=== PATIENT | male | born 1995 | race Caucasian/White ===

== ENCOUNTER → 2018-03-07 07:56 | Outpatient (CLI) | payer OTHER, SELFPAY ==
[2018-03-07 08:51] LABS: Add Manual Diff / Slide Review NO; Basophils Percent Auto 1.2 % (0-2); Eosinophils Percent Auto 1.9 % (2-4); Hematocrit 47.4 % (41-53); Hemoglobin 17.3 g/dL (13.5-17.5); Lymphocytes Percent Auto 15.9 % (25-40); Mean Corpuscular HGB Conc 36.5 % (30-36); Mean Corpuscular Hemoglobin 36.5 PG (26-34); Mean Corpuscular Volume 99.9 fL (80-100); Monocytes Percent Auto 11.8 % (3-14); Neutrophils Absolute Auto 3500 /uL (3000-5900); Neutrophils Percent Auto 69.2 % (50-75); Platelet Count 127 X10^3/uL (150-400); Red Blood Cell Count 4.75 X10^6/uL (4.5-5.9); Red Cell Distribution Width 12.5 % (11.6-14.8)
[2018-03-07 09:03] LABS: Alanine Aminotransferase 289 IU/L (21-72); Albumin Globulin Ratio 1.5 (1.0-2.8); Alkaline Phosphatase 98 U/L (38-126); Aspartate Aminotransferase 570 IU/L (17-59); Bilirubin Total 2.3 mg/dL (0.2-1.3); Blood Urea Nitrogen 8 mg/dL (9-20); Calcium 9.8 mg/dL (8.4-10.2); Carbon Dioxide 30 mmol/L (22-32); Chloride 97 mmol/L (98-107); Estimated Glomerular Filt Rate > 60.0 mL/min (>60); Globulin 3.3 g/dL (1.7-4.1); Glucose 105 mg/dL (70-100); HEMOLYSIS 21 (0-50); Potassium 3.4 mmol/L (3.4-5.1); Sodium 138 mmol/L (137-145); Total Protein 8.3 g/dL (6.3-8.2)
[2018-03-07 09:34] LABS: Thyroid Stimulating Hormone 1.88 uIU/mL (0.47-4.68)
[2018-03-07 10:05] LABS: Folate 19.8 ng/mL (2.76-20.0); Vitamin B12 784 pg/mL (239-931)
== END ==
PROVIDERS: Visit Provider Nurse Practitioner Family
DX: F10.14 Alcohol abuse with alcohol-induced mood disorder (principal); F41.9 Anxiety disorder, unspecified; R10.10 Upper abdominal pain, unspecified
CPT/HCPCS: 36415; 80053; 82607; 82746; 84443; 85025

== ENCOUNTER → 2018-03-09 07:09 | Outpatient (CLI) | payer OTHER, SELFPAY ==
--- NOTE | 2018-03-09 | DI.US.S_ITS ---
PROCEDURE: US ABDOMEN COMPLETE INDICATIONS: RIGHT UPPER QUADRANT PAIN TECHNIQUE: Real-time scanning was performed of the abdominal and retroperitoneal organs, with image documentation. COMPARISON: [facility], , ABDOMEN COMPLETE, 08/26/2017, 7:43. FINDINGS: Liver: Liver is normal in size and mildly hyperechoic in echotexture. Gallbladder: Gallbladder is clear with normal wall thickness Biliary ducts: Intrahepatic bile ducts are non-dilated. Extrahepatic bile duct caliber measures 3.9 mm. Normal is 6-7 mm or less in diameter, or 10 mm or less post-cholecystectomy. Pancreas: Visualized portions of the pancreas are sonographically normal. Spleen: Spleen is normal in size and homogeneous in echotexture. Kidneys: Kidneys are normal in size and echotexture. Right kidney measures 10.5 cm long; left kidney measures 12.4 cm long. No hydronephrosis or nephrolithiasis. No solid masses. Aorta: Visualized aorta is normal in caliber at less than 3 cm. Iliacs: Proximal common iliac arteries are normal in caliber at less than 2.5 cm. IVC: Intrahepatic inferior vena cava is patent. Miscellaneous: No free abdominal fluid. IMPRESSION: 1. Mild hepatic steatosis. No acute findings. Dictated by: Sandip Muro M.D. on 03/09/2018 at 8:43 Approved by: Sandip Muro M.D. on 03/09/2018 at 8:44
== END ==
PROVIDERS: PCP Nurse Practitioner Family; Visit Provider Nurse Practitioner Family
DX: K76.0 Fatty (change of) liver, not elsewhere classified (principal); R94.5 Abnormal results of liver function studies; R10.11 Right upper quadrant pain
CPT/HCPCS: 76700

== ENCOUNTER → 2018-03-23 14:53 | Outpatient (CLI) | payer OTHER, SELFPAY ==
[2018-03-23 15:59] LABS: Alanine Aminotransferase 124 IU/L (21-72); Albumin 4.7 g/dL (3.5-5.0); Albumin Globulin Ratio 1.7 (1.0-2.8); Alkaline Phosphatase 77 U/L (38-126); Aspartate Aminotransferase 123 IU/L (17-59); Bilirubin Unconjugated 0.6 mg/dL (0.0-1.1); Globulin 2.8 g/dL (1.7-4.1); HEMOLYSIS 16 (0-50); Total Protein 7.5 g/dL (6.3-8.2)
== END ==
PROVIDERS: PCP Nurse Practitioner Family; Visit Provider Nurse Practitioner Family
DX: R94.5 Abnormal results of liver function studies (principal)
CPT/HCPCS: 36415; 80076

== ENCOUNTER 2019-06-29 11:50 | Emergency (ER) | payer OTHER, MEDICAID, SELFPAY ==
[2019-06-29 11:58] VITALS: BMI 24.4
[2019-06-29 12:00] VITALS: PULSE 78; RESP 16; TEMP 36.8; O2SAT 99
--- NOTE | 2019-06-29 12:26 | ED.ABDPAIN ---
HPI - Abdominal Pain <Chelsea Mckeon PA-C - Last Filed: 06/29/19 20:23> General Chief Complaint: Abdominal Pain Stated Complaint: states sharp pains right side of stomach Time Seen by Provider: 06/29/19 12:03 Source: patient Mode of arrival: Ambulatory Limitations: no limitations History of Present Illness HPI narrative: This 24-year-old male comes to ED secondary to right upper quadrant pain. He states that he has had right upper quadrant discomfort going on for at least several weeks. He thought initially it was dietary but has been eating more healthy foods and pain has been worse for the last 2 days. He states pain is focused in the right upper quadrant, can radiate through to his back at times. Pain is always present at some low-level, intermittently worse, he states mainly when he tries to sleep but also after eating, regardless of what he eats. States he has some ?bubbling? and acid sensation times. He states he has had occasional chills and sweats intermittently at night, nothing changed in the last 2 days. No temperature is taken at home. He has had some nausea but no vomiting test been eating and drinking normally. He denies any urinary symptoms or hematuria. He states he has had frequent watery stools for the last 5 days. He denies any recent travel, medications or known exposures but was in care home during this time, released 1 week ago. He states that he has had some mild cough, denies any dyspnea or chest pain. He denies any swelling in the extremities or other new complaints on systems review. States he came in at his father's urging due to concern for his pain. He states prior to being in care home 2 months ago he was drinking 30 beers per day, states now abstinent. Related Data Previous Rx's Medication Instructions Recorded atenolol 12.5 mg PO QDAY #30 tab 01/20/17 lorazepam 1 tab PO BIDP PRN #20 tab 01/20/17 ondansetron [Zofran ODT] 4 mg SUBLINGUAL Q6HP PRN #20 08/26/17 ondansetron 4 mg PO Q8-12H PRN #8 tab 06/29/19 Allergies Allergy/AdvReac Type Severity Reaction Status Date / Time No Known Drug Allergies Allergy Verified 06/29/19 11:58 Review of Systems <Chelsea Mckeon PA-C - Last Filed: 06/29/19 20:23> Review of Systems ROS Unobtainable: All systems reviewed & are unremarkable except as noted in HPI and below Patient History <Chelsea Mckeon PA-C - Last Filed: 06/29/19 20:23> Medical History (Updated 06/29/19 @ 15:01 by Chelsea Mckeon PA-C) Elevated transaminase level (Inactive) Surgical History (Updated 06/29/19 @ 12:48 by Chelsea Mckeon PA-C) No history of previous surgery (Chronic) Family History (Updated 07/14/16 @ 00:00 by Conversion Provider) Father Age: 52 Diabetes mellitus Hypertension Social History (Updated 06/29/19 @ 12:48 by Chelsea Mckeon PA-C) Smoking Status: Current some day smoker substance use type: marijuana additional social history: Previous heavy EtOH use, occasional THC alcohol intake frequency: 3 or more drinks per day Substance Use Type: does not use Exam <Chelsea Mckeon PA-C - Last Filed: 06/29/19 20:23> Narrative Exam Narrative: GENERAL APPEARANCE: Patient sitting comfortably, in no distress. HEENT: PERRL, EOMI, conjunctiva pink, no scleral icterus, normal oropharynx NECK: Supple LUNGS: Clear to auscultation bilaterally. HEART: Rate and rhythm regular, normal S1 and S2, no S3 or S4. ABDOMEN: Soft, mild right upper quadrant tenderness without guarding or rebound, nondistended, bowel sounds present x 4 quadrants, no masses palpable, no hepatosplenomegaly. Mild right CVAT EXTREMITIES: No edema, no cyanosis DERMATOLOGIC: No jaundice or exanthem NEUROLOGIC: Alert and oriented with normal speech, gait, and coordination Initial Vital Signs Initial Vital Signs: Vital Signs Temperature 98.2 F 06/29/19 12:00 Pulse Rate 78 06/29/19 12:00 Respiratory Rate 16 06/29/19 12:00 Pulse Oximetry 99 06/29/19 12:00 <Rosemarie Post DO - Last Filed: 06/30/19 07:14> Initial Vital Signs Initial Vital Signs: Vital Signs Temperature 98.2 F 06/29/19 12:00 Pulse Rate 78 06/29/19 12:00 Respiratory Rate 16 06/29/19 12:00 Pulse Oximetry 99 06/29/19 12:00 Course <Chelsea Mckeon PA-C - Last Filed: 06/29/19 20:23> Course Additional Information: Patient appears comfortable during his stay, relaxing and using cell phone. He advised pain is still present however nausea has resolved. He has not had any vomiting or recurrent diarrhea during his entire visit. Reviewed no acute findings on testing today. Symptoms are somewhat chronic. We discussed could be gastritis related to alcohol, possibly infectious given recent incarceration. He is agreeable with plan to continue symptomatic treatment for now and follow up with PCP in the next few days. He agreed to return if any acutely worsening symptoms in the interim Orders Ordered: Discontinued Medications Sodium Chloride (Normal Saline 0.9%) 1,000 mls @ 1,000 mls/hr IV BOLUS ONE Stop: 06/29/19 13:40 Last Infusion: 06/29/19 14:22 Dose: 0 mls/hr Documented by: Admin: 06/29/19 13:18 Dose: 1,000 mls/hr Documented by: CONCETTA Ketorolac Tromethamine (Toradol) 30 mg IV NOW ONE Stop: 06/29/19 12:42 Last Admin: 06/29/19 13:18 Dose: 30 mg Documented by: CONCETTA Ondansetron HCl (Zofran) 4 mg IV NOW ONE Stop: 06/29/19 12:42 Last Admin: 06/29/19 13:19 Dose: 4 mg Documented by: CONCETTA Pantoprazole Sodium (Protonix) 40 mg IV NOW ONE Stop: 06/29/19 12:42 Last Admin: 06/29/19 13:18 Dose: 40 mg Documented by: CONCETTA Vital Signs Vital signs: Vital Signs - 8 hr 06/29/19 15:10 Pulse Rate 73 Blood Pressure 119/66 Pulse Oximetry 99 <Rosemarie Post DO - Last Filed: 06/30/19 07:14> Orders Ordered: Discontinued Medications Sodium Chloride (Normal Saline 0.9%) 1,000 mls @ 1,000 mls/hr IV BOLUS ONE Stop: 06/29/19 13:40 Last Infusion: 06/29/19 14:22 Dose: 0 mls/hr Documented by: Admin: 06/29/19 13:18 Dose: 1,000 mls/hr Documented by: CONCETTA Ketorolac Tromethamine (Toradol) 30 mg IV NOW ONE Stop: 06/29/19 12:42 Last Admin: 06/29/19 13:18 Dose: 30 mg Documented by: CONCETTA Ondansetron HCl (Zofran) 4 mg IV NOW ONE Stop: 06/29/19 12:42 Last Admin: 06/29/19 13:19 Dose: 4 mg Documented by: CONCETTA Pantoprazole Sodium (Protonix) 40 mg IV NOW ONE Stop: 06/29/19 12:42 Last Admin: 06/29/19 13:18 Dose: 40 mg Documented by: CONCETTA Vital Signs Vital signs: Vital Signs - 8 hr 06/29/19 15:10 Pulse Rate 73 Blood Pressure 119/66 Pulse Oximetry 99 MDM - Abdominal Pain <Chelsea Mckeon PA-C - Last Filed: 06/29/19 20:23> Lab Data Attestation: I reviewed the patient's lab results. Result diagrams: 06/29/19 12:30 06/29/19 12:30 Labs: Lab Results 06/29/19 06/29/19 Range/Units 12:30 12:30 WBC 5.7 (4.5-11.0) X10^3/uL RBC 4.58 (4.5-5.9) X10^6/uL Hgb 15.8 (13.5-17.5) g/dL Hct 44.7 (41-53) % MCV 97.6 (80-100) fL MCH 34.5 H (26-34) PG MCHC 35.3 (30-36) % RDW 12.4 (11.6-14.8) % Plt Count 184 (150-400) X10^3/uL Neut % (Auto) 58.7 (50-75) % Lymph % (Auto) 31.5 (25-40) % [place] % (Auto) 5.8 (3-14) % Eos % (Auto) 2.9 (2-4) % Baso % (Auto) 1.1 (0-2) % Neut # (Auto) 3300 (2125-2079) /uL Lymph # (Auto) 1800 (0159-9583) /uL [place] # (Auto) 300 (0-900) /uL Eos # (Auto) 200 (0-450) /uL Baso # (Auto) 100 (0-100) /uL Sodium 144 (137-145) mmol/L Potassium 4.0 (3.4-5.1) mmol/L Chloride 106 (98-107) mmol/L Carbon Dioxide 27 (22-32) mmol/L BUN 9 (9-20) mg/dL Creatinine 0.60 L (0.66-1.25) mg/dL Estimated GFR > 60.0 (>60) mL/min BUN/Creatinine Ratio 15.0 (6-22) Glucose 104 H (70-100) mg/dL Calcium 8.9 (8.4-10.2) mg/dL Total Bilirubin 0.4 (0.2-1.3) mg/dL AST 58 (17-59) IU/L ALT 46 (<50) IU/L Alkaline Phosphatase 74 (38-126) U/L Total Protein 7.4 (6.3-8.2) g/dL Albumin 4.7 (3.5-5.0) g/dL Globulin 2.7 (1.7-4.1) g/dL Albumin/Globulin Ratio 1.7 (1.0-2.8) Lipase 122 (23-300) U/L Point of care testing: Urine Dip Bedside Urine Glucose Negative Bedside Urine Bilirubin - Negative Bedside Urine Ketone - Negative Urine Specific [place] 1.005 Bedside Urine Occult Blood - Negative Bedside Urine pH 6.5 Bedside Urine Protein - Negative Bedside Urine Urobilinogen - Negative Bedside Urine Nitrite - Negative Bedside Urine Leukocytes - Negative Esterase Imaging Data US - abdomen: Radiologist's impression: [address] [address] Ultrasound Report Signed Patient: Dequan Bergman PMR#: [id number] : 1995Acct:[id number] Age/Sex: 24 / MDate of Service: 06/29/19 Loc: ED Accession Number: [id number] Procedure: US abdomen limited Ordering Provider: Chelsea Mckeon P.A-C PROCEDURE: US ABDOMEN LIMITED INDICATIONS: RIGHT UPPER QUADRANT PAIN, NAUSEA TECHNIQUE: Real-time focused scanning was performed of the abdomen, with image documentation. COMPARISON: [facility], [place], ABDOMEN COMPLETE, 08/26/2017, 7:43[facility], [place], US ABDOMEN COMPLETE, 03/09/2018, 7:37. FINDINGS: The liver demonstrates normal size and echotexture. Gallbladder is normal patient No gallstones. No gallbladder wall thickening, pericholecystic fluid or sonographic Bergman's sign. Visualized pancreas is normal in morphology and echotexture. Pancreatic tail is obscured by overlying bowel gas. Common bile duct measures 4.6 mm. IMPRESSION: Normal limited abdominal ultrasound. No findings to explain right upper quadrant pain. Dictated by: Yeison Cabral M.D. on 06/29/2019 at 14:20 Approved by: Yeison Cabral M.D. on 06/29/2019 at 14:22 <Rosemarie Post DO - Last Filed: 06/30/19 07:14> Lab Data Labs: Lab Results 06/29/19 06/29/19 Range/Units 12:30 12:30 WBC 5.7 (4.5-11.0) X10^3/uL RBC 4.58 (4.5-5.9) X10^6/uL Hgb 15.8 (13.5-17.5) g/dL Hct 44.7 (41-53) % MCV 97.6 (80-100) fL MCH 34.5 H (26-34) PG MCHC 35.3 (30-36) % RDW 12.4 (11.6-14.8) % Plt Count 184 (150-400) X10^3/uL Neut % (Auto) 58.7 (50-75) % Lymph % (Auto) 31.5 (25-40) % [place] % (Auto) 5.8 (3-14) % Eos % (Auto) 2.9 (2-4) % Baso % (Auto) 1.1 (0-2) % Neut # (Auto) 3300 (4592-2066) /uL Lymph # (Auto) 1800 (9360-3849) /uL [place] # (Auto) 300 (0-900) /uL Eos # (Auto) 200 (0-450) /uL Baso # (Auto) 100 (0-100) /uL Sodium 144 (137-145) mmol/L Potassium 4.0 (3.4-5.1) mmol/L Chloride 106 (98-107) mmol/L Carbon Dioxide 27 (22-32) mmol/L BUN 9 (9-20) mg/dL Creatinine 0.60 L (0.66-1.25) mg/dL Estimated GFR > 60.0 (>60) mL/min BUN/Creatinine Ratio 15.0 (6-22) Glucose 104 H (70-100) mg/dL Calcium 8.9 (8.4-10.2) mg/dL Total Bilirubin 0.4 (0.2-1.3) mg/dL AST 58 (17-59) IU/L ALT 46 (<50) IU/L Alkaline Phosphatase 74 (38-126) U/L Total Protein 7.4 (6.3-8.2) g/dL Albumin 4.7 (3.5-5.0) g/dL Globulin 2.7 (1.7-4.1) g/dL Albumin/Globulin Ratio 1.7 (1.0-2.8) Lipase 122 (23-300) U/L Point of care testing: Urine Dip Bedside Urine Glucose Negative Bedside Urine Bilirubin - Negative Bedside Urine Ketone - Negative Urine Specific [place] 1.005 Bedside Urine Occult Blood - Negative Bedside Urine pH 6.5 Bedside Urine Protein - Negative Bedside Urine Urobilinogen - Negative Bedside Urine Nitrite - Negative Bedside Urine Leukocytes - Negative Esterase Discharge Plan Departure Patient Disposition: Home Clinical Impression: Abdominal wall pain in right upper quadrant, Nausea alone Diarrhea Qualifiers: Diarrhea type: unspecified type Qualified Code(s): R19.7 - Diarrhea, unspecified Discharge Date/Time: 06/29/19 15:10 Instructions: [place] Diet, DI for Abdominal Pain-Adult, DI for Nausea -- Adult Activity Restrictions/Additional Instructions: Please call your PCP office today and let them know you were seen in the emergency room for your abdominal pain, and that we would like you to follow up early next week. The source of your pain is not exactly clear today as your tests did not show any acute findings. Since you have not had diarrhea this afternoon we were not able to test your stools. In the interim, please start [id number] Prilosec (omeprazole) 20 mg 30-45 minutes prior to breakfast and dinner every day. I have also prescribed the antinausea medicine that you had here in the IV in and under the tongue form that you can use as needed (sent to [employer] [facility]). Eat a bland diet with foods such as white bread, white rice, clear broth, applesauce and you can slowly advance the diet if you feel better, but stick with bland foods. Drink plenty of clear fluids. Remain abstinent from alcohol. As we talked about, you should return to the ED if you have any acutely worsening symptoms prior to following up with your PCP. Prescriptions: New ondansetron 4 mg tablet,disintegrating 4 mg PO Q8-12H PRN (Reason: nausea and vomiting) Qty: 8 RF: 0 No Action lorazepam 1 MG tablet 1 tab PO BIDP PRNQty: 20 RF: 1 atenolol 25 MG tablet 12.5 mg PO QDAY Qty: 30 RF: 0 ondansetron [Zofran ODT] 4 MG tablet,disintegrating 4 mg Sublingual Q6HP PRNQty: 20 RF: 0 Referrals: [facility] [Provider Group]
[2019-06-29 12:45] LABS: Add Manual Diff / Slide Review NO; Basophils Absolute Auto 100 /uL (0-100); Basophils Percent Auto 1.1 % (0-2); Eosinophils Absolute Auto 200 /uL (0-450); Eosinophils Percent Auto 2.9 % (2-4); Hematocrit 44.7 % (41-53); Hemoglobin 15.8 g/dL (13.5-17.5); Lymphocytes Absolute Auto 1800 /uL (1100-4500); Lymphocytes Percent Auto 31.5 % (25-40); Mean Corpuscular HGB Conc 35.3 % (30-36); Mean Corpuscular Hemoglobin 34.5 PG (26-34); Mean Corpuscular Volume 97.6 fL (80-100); Monocytes Absolute Auto 300 /uL (0-900); Monocytes Percent Auto 5.8 % (3-14); Neutrophils Absolute Auto 3300 /uL (1500-7000); Neutrophils Percent Auto 58.7 % (50-75); Platelet Count 184 X10^3/uL (150-400); Red Blood Cell Count 4.58 X10^6/uL (4.5-5.9); Red Cell Distribution Width 12.4 % (11.6-14.8); White Blood Cell Count 5.7 X10^3/uL (4.5-11.0)
[2019-06-29 12:57] LABS: Alanine Aminotransferase 46 IU/L (<50); Albumin 4.7 g/dL (3.5-5.0); Albumin Globulin Ratio 1.7 (1.0-2.8); Alkaline Phosphatase 74 U/L (38-126); Aspartate Aminotransferase 58 IU/L (17-59); Bilirubin Total 0.4 mg/dL (0.2-1.3); Blood Urea Nitrogen 9 mg/dL (9-20); Calcium 8.9 mg/dL (8.4-10.2); Carbon Dioxide 27 mmol/L (22-32); Chloride 106 mmol/L (98-107); Estimated Glomerular Filt Rate > 60.0 mL/min (>60); Globulin 2.7 g/dL (1.7-4.1); Glucose 104 mg/dL (70-100); HEMOLYSIS < 15 (0-50); Lipase 122 U/L (23-300); Sodium 144 mmol/L (137-145); Total Protein 7.4 g/dL (6.3-8.2)
[2019-06-29] MEDS: SODIUM CHLORIDE 0.9% 1,000 ML 1000 ML IV (13:18)
[2019-06-29] MEDS: KETOROLAC 60 MG/2 ML VIAL 30 MG IV (13:18)
[2019-06-29] MEDS: PANTOPRAZOLE 40 MG VIAL IV (13:18)
[2019-06-29] MEDS: ONDANSETRON 4 MG/2 ML INJ IV (13:19)
--- NOTE | 2019-06-29 13:28 | DI.US.S_ITS ---
PROCEDURE: US ABDOMEN LIMITED INDICATIONS: RIGHT UPPER QUADRANT PAIN, NAUSEA TECHNIQUE: Real-time focused scanning was performed of the abdomen, with image documentation. COMPARISON: [facility], [place], ABDOMEN COMPLETE, 08/26/2017, 7:43. [facility], [place], US ABDOMEN COMPLETE, 03/09/2018, 7:37. FINDINGS: The liver demonstrates normal size and echotexture. Gallbladder is normal patient No gallstones. No gallbladder wall thickening, pericholecystic fluid or sonographic Bergman's sign. Visualized pancreas is normal in morphology and echotexture. Pancreatic tail is obscured by overlying bowel gas. Common bile duct measures 4.6 mm. IMPRESSION: Normal limited abdominal ultrasound. No findings to explain right upper quadrant pain. Dictated by: Yeison Cabral M.D. on 06/29/2019 at 14:20 Approved by: Yeison Cabral M.D. on 06/29/2019 at 14:22
[2019-06-29 15:10] VITALS: BP 119/66; PULSE 73; O2SAT 99
== END 2019-06-29 15:10 | disposition home or self-care (01) ==
PROVIDERS: Emergency Medicine; Emergency Provider Internal Medicine; PCP Nurse Practitioner Family
DX: R10.11 Right upper quadrant pain (principal); R11.0 Nausea; R19.7 Diarrhea, unspecified
CPT/HCPCS: 76705; 80053; 81003; 83690; 85025; 96361; 96374; 96375; 99283; 99284; C9113; J1885; J2405

== ENCOUNTER 2019-07-02 18:50 | Emergency (ER) | payer OTHER, MEDICAID, SELFPAY ==
[2019-07-02 19:34] VITALS: BP 126/78; PULSE 78; RESP 22; TEMP 36.8; O2SAT 100; BMI 23.0
[2019-07-02 21:14] LABS: Add Manual Diff / Slide Review NO; Basophils Absolute Auto 100 /uL (0-100); Basophils Percent Auto 0.8 % (0-2); Eosinophils Absolute Auto 200 /uL (0-450); Hematocrit 42.9 % (41-53); Hemoglobin 15.3 g/dL (13.5-17.5); Lymphocytes Absolute Auto 2300 /uL (1100-4500); Lymphocytes Percent Auto 28.8 % (25-40); Mean Corpuscular HGB Conc 35.7 % (30-36); Mean Corpuscular Volume 98.1 fL (80-100); Monocytes Absolute Auto 700 /uL (0-900); Monocytes Percent Auto 8.2 % (3-14); Neutrophils Absolute Auto 4900 /uL (1500-7000); Neutrophils Percent Auto 60.2 % (50-75); Platelet Count 196 X10^3/uL (150-400); Prothrombin Time 11.1 SECONDS (10.1-12.7); Red Blood Cell Count 4.38 X10^6/uL (4.5-5.9); Red Cell Distribution Width 12.5 % (11.6-14.8); White Blood Cell Count 8.1 X10^3/uL (4.5-11.0)
[2019-07-02 21:15] VITALS: BP 121/76; PULSE 67; RESP 16; O2SAT 99
[2019-07-02 21:21] LABS: Ethanol (ETOH) < 10 mg/dL
[2019-07-02 21:22] LABS: Alanine Aminotransferase 48 IU/L (<50); Albumin 4.9 g/dL (3.5-5.0); Albumin Globulin Ratio 1.8 (1.0-2.8); Alkaline Phosphatase 81 U/L (38-126); Aspartate Aminotransferase 61 IU/L (17-59); BUN Creatinine Ratio 18.6 (6-22); Blood Urea Nitrogen 13 mg/dL (9-20); Calcium 9.3 mg/dL (8.4-10.2); Carbon Dioxide 29 mmol/L (22-32); Chloride 98 mmol/L (98-107); Estimated Glomerular Filt Rate > 60.0 mL/min (>60); Globulin 2.7 g/dL (1.7-4.1); Glucose 91 mg/dL (70-100); HEMOLYSIS < 15 (0-50); Potassium 3.9 mmol/L (3.4-5.1); Sodium 138 mmol/L (137-145); Total Protein 7.6 g/dL (6.3-8.2)
[2019-07-02 21:32] LABS: UR Morphine/Opiate cutoff 300 Negative (Negative); Ur Creatinine 20 (Normal); Ur Specific Gravity 1.015 (Normal); Urine Amphetamines Negative (Negative); Urine Cocaine Negative (Negative); Urine MDMA Negative (Negative); Urine Methamphetamines Negative (Negative); Urine Phencyclidine Negative (Negative); Urine Tetrahydrocannabinol Negative (Negative); Urine pH 5 (Normal)
[2019-07-02 21:33] LABS: Urine Barbiturates Negative (Negative); Urine Benzodiazepines Negative (Negative); Urine Methadone Negative (Negative); Urine Oxycodone Negative (Negative); Urine Tricyclic Antidepressant Negative (Negative)
[2019-07-02] MEDS: PHENobarbital 65 MG/ML VIAL 130 MG IV (21:59)
[2019-07-02 22:46] VITALS: BP 137/72; PULSE 61; O2SAT 99
--- NOTE | 2019-07-02 22:55 | ED_ITS ---
HPI - Alcohol General Chief Complaint: Toxicology Problem Stated Complaint: ETOH withdrawls Time Seen by Provider: 07/02/19 18:55 Source: patient Mode of arrival: Family Vehicle Limitations: no limitations History of Present Illness HPI narrative: 24-year-old male smoker with extensive history of alcohol abuse presents with a chief complaint of feeling a bit anxious, agitated with likely withdrawal symptoms presenting. He has been to rehab on multiple occasions and has even progress to seizures in the setting of withdrawals. For the past few months he has been drinking upwards of 16-18 beers daily and states his last drink was earlier this morning. MD complaint: alcohol intoxication and alcohol withdrawal Last drink: hours (ago) Chronic alcohol use: Yes Previous visits for alcohol intoxication: Yes Recent trauma: No Associated symptoms: tremors Treatments prior to arrival: none Related Data Previous Rx's Medication Instructions Recorded atenolol 12.5 mg PO QDAY #30 tab 01/20/17 lorazepam 1 tab PO BIDP PRN #20 tab 01/20/17 ondansetron [Zofran ODT] 4 mg SUBLINGUAL Q6HP PRN #20 08/26/17 ondansetron 4 mg PO Q8-12H PRN #8 tab 06/29/19 Allergies Allergy/AdvReac Type Severity Reaction Status Date / Time No Known Drug Allergies Allergy Verified 07/02/19 19:39 Review of Systems Constitutional Constitutional: Denies chills, Denies fatigue, Denies fever(s), Denies frequent falls, Denies lethargy and Denies weakness Eyes Eyes: Denies change in vision, Denies eye discharge, Denies irritation and Denies loss of vision ENT Ears, Nose, Mouth, and Throat: Denies change in voice, Denies dizziness, Denies neck pain, Denies sore throat and Denies throat swelling Cardiovascular Cardiovascular: Denies chest pain, Denies irregular heart rhythm, Denies lightheadedness, Denies palpitations, Denies dyspnea, Denies dyspnea on exertion and Denies orthopnea Respiratory Respiratory: Denies cough, Denies dyspnea, Denies dyspnea on exertion and Denies wheezing Gastrointestinal Gastrointestinal: Denies abdominal pain, Denies change in bowel habits, Denies diarrhea, Denies nausea and Denies vomiting Genitourinary Genitourinary: Denies hematuria, Denies flank pain, Denies urinary incontinence and Denies urinary urgency Musculoskeletal Musculoskeletal: Denies back pain, Denies muscle weakness, Denies neck pain, Denies numbness and Denies tingling Integumentary/Breasts Skin/Breast: Denies pruritus, Denies erythema, Denies rash and Denies wounds Neurologic Neurologic: Denies behavioral changes, Denies confusion, Denies dizziness, Denies frequent falls, Denies loss of vision, Denies numbness, Denies tingling and Denies weakness Psychiatric Psychiatric: Reports anxiety, Denies behavioral changes, Denies confusion, Denies depression, Denies homicidal ideation and Denies suicidal ideation Endocrine Endocrine: Denies fatigue, Denies flushing and Denies palpitations Hematologic/Lymphatic Hematologic/Lymphatic: Denies easy bruising Allergic/Immunologic Allergic/Immunologic: Denies urticaria, Denies throat swelling and Denies wheezing Patient History Medical History Elevated transaminase level (Inactive) Surgical History No history of previous surgery (Chronic) Family History Father Age: 52 Diabetes mellitus Hypertension Social History Smoking Status: Current some day smoker substance use type: marijuana additional social history: Previous heavy EtOH use, occasional THC tobacco type: cigarettes alcohol intake frequency: 3 or more drinks per day Alcohol type: beer and hard liquor Substance Use Type: does not use Exam Initial Vital Signs Initial Vital Signs: Vital Signs Temperature 98.2 F 07/02/19 19:34 Pulse Rate 78 07/02/19 19:34 Respiratory Rate 22 07/02/19 19:34 Blood Pressure 126/78 07/02/19 19:34 Pulse Oximetry 100 07/02/19 19:34 Course Course Course Narrative: Marlene for Alcohol Withdrawal from [facility] on 07/03/2019 All calculations should be rechecked by clinician prior to use RESULT SUMMARY: 6 points Patients with scores ?8 typically do not require medication for withdrawal. INPUTS: Nausea/vomiting ?> 0 = No nausea and no vomiting Tremor ?> 1 = Not visible, but can be felt fingertip to fingertip Paroxysmal sweats ?> 0 = No sweat visible Anxiety ?> 3 = (More severe symptoms) Agitation ?> 2 = (More severe symptoms) Tactile disturbances ?> 0 = None Auditory disturbances ?> 0 = Not present Visual disturbances ?> 0 = Not present Headache/fullness in head ?> 0 = Not Present Orientation/clouding of sensorium ?> 0 = Oriented, can do serial additions Orders Ordered: ED Orders 07/02/19 21:15 Urine Drug Screen, Rapid Stat Discontinued Medications Phenobarbital (Phenobarbital) 130 mg IV NOW ONE Stop: 07/02/19 21:44 Last Admin: 07/02/19 21:59 Dose: 130 mg Documented by: ALFREDO Vital Signs Vital signs: Vital Signs - 8 hr 07/02/19 22:46 Pulse Rate 61 Blood Pressure [Left Arm] 137/72 Pulse Oximetry 99 MDM - Alcohol Lab Data Result diagrams: 07/02/19 20:45 07/02/19 20:45 Labs: Lab Results 07/02/19 07/02/19 07/02/19 Range/Units 20:45 20:45 20:45 WBC 8.1 (4.5-11.0) X10^3/uL RBC 4.38 L (4.5-5.9) X10^6/uL Hgb 15.3 (13.5-17.5) g/dL Hct 42.9 (41-53) % MCV 98.1 (80-100) fL MCH 35.0 H (26-34) PG MCHC 35.7 (30-36) % RDW 12.5 (11.6-14.8) % Plt Count 196 (150-400) X10^3/uL Neut % (Auto) 60.2 (50-75) % Lymph % (Auto) 28.8 (25-40) % [place] % (Auto) 8.2 (3-14) % Eos % (Auto) 2.0 (2-4) % Baso % (Auto) 0.8 (0-2) % Neut # (Auto) 4900 (9399-2280) /uL Lymph # (Auto) 2300 (0029-6505) /uL [place] # (Auto) 700 (0-900) /uL Eos # (Auto) 200 (0-450) /uL Baso # (Auto) 100 (0-100) /uL PT 11.1 (10.1-12.7) SECONDS INR 1.0 (0.9-1.3) Sodium (137-145) mmol/L Potassium (3.4-5.1) mmol/L Chloride (98-107) mmol/L Carbon Dioxide (22-32) mmol/L BUN (9-20) mg/dL Creatinine (0.66-1.25) mg/dL Estimated GFR (>60) mL/min BUN/Creatinine Ratio (6-22) Glucose (70-100) mg/dL Calcium (8.4-10.2) mg/dL Total Bilirubin (0.2-1.3) mg/dL AST (17-59) IU/L ALT (<50) IU/L Alkaline Phosphatase (38-126) U/L Total Protein (6.3-8.2) g/dL Albumin (3.5-5.0) g/dL Globulin (1.7-4.1) g/dL Albumin/Globulin Ratio (1.0-2.8) U Morph 300 ng/mL cutoff (Negative) Ur Oxycodone Screen (Negative) Urine Methadone Screen (Negative) Ur Barbiturates Screen (Negative) U Tricyclic Antidepress (Negative) Ur Phencyclidine Scrn (Negative) Ur Amphetamines Screen (Negative) U Methamphetamines Scrn (Negative) Ur MDMA Scrn (Ecstasy) (Negative) U Benzodiazepines Scrn (Negative) Urine Cocaine Screen (Negative) U Marijuana (THC) Screen (Negative) Ethyl Alcohol < 10 ( - 10) mg/dL 07/02/19 07/02/19 Range/Units 20:45 21:15 WBC (4.5-11.0) X10^3/uL RBC (4.5-5.9) X10^6/uL Hgb (13.5-17.5) g/dL Hct (41-53) % MCV (80-100) fL MCH (26-34) PG MCHC (30-36) % RDW (11.6-14.8) % Plt Count (150-400) X10^3/uL Neut % (Auto) (50-75) % Lymph % (Auto) (25-40) % [place] % (Auto) (3-14) % Eos % (Auto) (2-4) % Baso % (Auto) (0-2) % Neut # (Auto) (6206-6732) /uL Lymph # (Auto) (8719-5764) /uL [place] # (Auto) (0-900) /uL Eos # (Auto) (0-450) /uL Baso # (Auto) (0-100) /uL PT (10.1-12.7) SECONDS INR (0.9-1.3) Sodium 138 (137-145) mmol/L Potassium 3.9 (3.4-5.1) mmol/L Chloride 98 (98-107) mmol/L Carbon Dioxide 29 (22-32) mmol/L BUN 13 (9-20) mg/dL Creatinine 0.70 (0.66-1.25) mg/dL Estimated GFR > 60.0 (>60) mL/min BUN/Creatinine Ratio 18.6 (6-22) Glucose 91 (70-100) mg/dL Calcium 9.3 (8.4-10.2) mg/dL Total Bilirubin 1.0 (0.2-1.3) mg/dL AST 61 H (17-59) IU/L ALT 48 (<50) IU/L Alkaline Phosphatase 81 (38-126) U/L Total Protein 7.6 (6.3-8.2) g/dL Albumin 4.9 (3.5-5.0) g/dL Globulin 2.7 (1.7-4.1) g/dL Albumin/Globulin Ratio 1.8 (1.0-2.8) U Morph 300 ng/mL cutoff Negative (Negative) Ur Oxycodone Screen Negative (Negative) Urine Methadone Screen Negative (Negative) Ur Barbiturates Screen Negative (Negative) U Tricyclic Antidepress Negative (Negative) Ur Phencyclidine Scrn Negative (Negative) Ur Amphetamines Screen Negative (Negative) U Methamphetamines Scrn Negative (Negative) Ur MDMA Scrn (Ecstasy) Negative (Negative) U Benzodiazepines Scrn Negative (Negative) Urine Cocaine Screen Negative (Negative) U Marijuana (THC) Screen Negative (Negative) Ethyl Alcohol ( - 10) mg/dL Urine Dip Bedside Urine Glucose Negative Bedside Urine Bilirubin - Negative Bedside Urine Ketone - Negative Urine Specific [place] 1.010 Bedside Urine Occult Blood - Negative Bedside Urine pH 6.0 Bedside Urine Protein - Negative Bedside Urine Urobilinogen - Negative Bedside Urine Nitrite - Negative Bedside Urine Leukocytes - Negative Esterase MDM Narrative Medical decision making narrative: Patient presents with very mild alcohol withdrawal symptoms and responds well to phenobarbital. He is awake, alert and oriented, speaking clearly and walks a straight line. He has been given extensive return precautions and had questions answered to his apparent satisfaction. Discharge Plan Departure Patient Disposition: Home Clinical Impression: Alcohol withdrawal Qualifiers: Complication of substance-induced condition: uncomplicated Qualified Code(s): F10.230 - Alcohol dependence with withdrawal, uncomplicated Discharge Date/Time: 07/02/19 22:58 Instructions: DI for Alcohol Abuse Activity Restrictions/Additional Instructions: *You have been diagnosed with [alcohol abuse, early withdrawal] *What to do: *Take medications as directed *Follow up with your primary care provider in 2-3 days, call for an appointment. Let them know you were seen in the Emergency Department and that we ask that you be seen in follow up *Return to ER if you should have any new, worsening or concerning symptoms Prescriptions: No Action lorazepam 1 MG tablet 1 tab PO BIDP PRNQty: 20 RF: 1 atenolol 25 MG tablet 12.5 mg PO QDAY Qty: 30 RF: 0 ondansetron [Zofran ODT] 4 MG tablet,disintegrating 4 mg Sublingual Q6HP PRNQty: 20 RF: 0 ondansetron 4 mg tablet,disintegrating 4 mg PO Q8-12H PRN (Reason: nausea and vomiting) Qty: 8 RF: 0 Referrals: [facility] [Outside] Tea Flores ARNP [Primary Care Provider] -
== END 2019-07-02 22:58 | disposition home or self-care (01) ==
PROVIDERS: Emergency Provider Emergency Medicine; PCP Nurse Practitioner Family
DX: F10.230 Alcohol dependence with withdrawal, uncomplicated (principal)
CPT/HCPCS: 36415; 80053; 80305; 80320; 81003; 85025; 85610; 96374; 99283; 99284; J2560

== ENCOUNTER 2019-07-16 23:00 | Emergency (ER) | payer OTHER, MEDICAID, SELFPAY ==
[2019-07-16 23:00] VITALS: BP 146/96; PULSE 114; RESP 18; TEMP 36.8; O2SAT 100; BMI 23.0
--- NOTE | 2019-07-16 23:21 | ED.GENADULT ---
HPI - General Adult General Chief complaint: Toxicology Problem Stated complaint: ETOH withdrawls Time Seen by Provider: 07/16/19 23:07 Source: patient Mode of arrival: Ambulatory Limitations: no limitations History of Present Illness HPI narrative: 24-year-old male with a known history of alcohol abuse here for what he states her alcohol withdrawals. He has been through this in the past. He states he has had 1 prior seizure secondary to alcohol withdrawal. He states that he has been to detox several times in the past. Was seen here in the emergency department several days ago for the same issues of however he started to drink again. He states that his last drink was approximately 10 hours ago. Related Data Previous Rx's Medication Instructions Recorded atenolol 12.5 mg PO QDAY #30 tab 01/20/17 lorazepam 1 tab PO BIDP PRN #20 tab 01/20/17 ondansetron [Zofran ODT] 4 mg SUBLINGUAL Q6HP PRN #20 08/26/17 ondansetron 4 mg PO Q8-12H PRN #8 tab 06/29/19 Allergies Allergy/AdvReac Type Severity Reaction Status Date / Time No Known Drug Allergies Allergy Verified 07/02/19 19:39 Review of Systems Constitutional Constitutional: Denies fatigue Cardiovascular Cardiovascular: Denies chest pain and Denies dyspnea Respiratory Respiratory: Denies dyspnea Gastrointestinal Gastrointestinal: Denies change in stool character and Denies nausea Musculoskeletal Musculoskeletal: Denies myalgias, Denies arthralgias and Denies tingling Integumentary/Breasts Comments: Some shaking Neurologic Neurologic: Denies seizure-like activity, Denies tingling and Denies paresthesias Endocrine Endocrine: Denies fatigue Hematologic/Lymphatic Hematologic/Lymphatic: Denies easy bleeding and Denies easy bruising Patient History Medical History (Updated 07/17/19 @ 00:35 by Martín Zaman DO) Alcohol abuse (Acute) Cervical radiculopathy (Inactive) Elevated transaminase level (Inactive) Hypokalemia (Inactive) Neck pain on right side (Inactive) Surgical History No history of previous surgery (Chronic) Family History Father Age: 53 Diabetes mellitus Hypertension Social History (Reviewed 07/17/19 @ 00:35 by TIFF Gonzales Smoking Status: Current some day smoker substance use type: marijuana additional social history: Previous heavy EtOH use, occasional THC tobacco type: cigarettes alcohol intake frequency: 3 or more drinks per day Alcohol type: beer and hard liquor Substance Use Type: does not use Exam Initial Vital Signs Initial Vital Signs: Vital Signs Temperature 98.2 F 07/16/19 23:00 Pulse Rate 114 H 07/16/19 23:00 Respiratory Rate 18 07/16/19 23:00 Blood Pressure 146/96 H 07/16/19 23:00 Pulse Oximetry 100 07/16/19 23:00 Const General: cooperative and comfortable Orientation: alert, awake and oriented x3 HENMT Head: normal to inspection and normocephalic Resp Effort & Inspection: normal respiratory effort Auscultation: clear to auscultation bilaterally Cardio Rate: regular rate Rhythm: regular rhythm Pulses: radial pulses present GI Inspection: non-distended Palpation: soft Skin Lesions: no lesions Rashes: no rashes Neuro General: alert and awake Cognition: normal cognition Speech: speech normal Extrem General: normal to inspection and capillary refill normal Psych Appearance: grossly normal and well kempt Scores GCS [place] coma scale eye opening: Spontaneous [place] coma scale verbal response: Orientated [place] coma scale motor response: Obey commands [place] coma scale total score: 15 Course Orders Ordered: ED Orders 07/16/19 23:16 Urinalysis and Microscopic Stat Urine Drug Screen, Rapid Stat 07/16/19 23:22 Consult to [facility] [place] [facility] Stat 07/16/19 23:44 Acetaminophen Stat Complete Blood Count AUTO DIFF Stat Ethanol (ETOH) Stat Lipase Stat 07/17/19 00:36 Comprehensive Metabolic Panel Stat Discontinued Medications Lorazepam (Ativan) 1 mg IV NOW ONE Stop: 07/16/19 23:22 Last Admin: 07/16/19 23:31 Dose: 1 mg Documented by: LREED Vital Signs Vital signs: Vital Signs - 8 hr 07/16/19 23:00 07/17/19 00:12 07/17/19 00:30 Temperature 98.2 F Pulse Rate 114 H 91 H 94 H Respiratory Rate 18 16 20 Blood Pressure 146/96 H Blood Pressure [Left Arm] 122/78 120/75 Pulse Oximetry 100 100 98 07/17/19 01:00 07/17/19 01:30 07/17/19 02:00 Temperature Pulse Rate 92 H 93 H 86 Respiratory Rate 19 18 17 Blood Pressure Blood Pressure [Left Arm] 127/71 126/64 132/69 Pulse Oximetry 96 96 96 07/17/19 02:30 07/17/19 03:00 07/17/19 03:26 Temperature Pulse Rate 79 74 75 Respiratory Rate 16 15 15 Blood Pressure Blood Pressure [Left Arm] 118/67 120/70 118/67 Pulse Oximetry 95 98 97 07/17/19 05:57 Temperature Pulse Rate 83 Respiratory Rate 15 Blood Pressure Blood Pressure [Left Arm] 118/65 Pulse Oximetry 97 Medical Decision Making Medical Records Medical records reviewed: Yes I reviewed the patient's medical records. Lab Data Lab results reviewed: Yes I reviewed the patient's lab results. Result diagrams: 07/16/19 23:44 07/16/19 23:44 Labs: Lab Results 07/16/19 07/16/19 07/16/19 Range/Units 23:16 23:16 23:44 WBC (4.5-11.0) X10^3/uL RBC (4.5-5.9) X10^6/uL Hgb (13.5-17.5) g/dL Hct (41-53) % MCV (80-100) fL MCH (26-34) PG MCHC (30-36) % RDW (11.6-14.8) % Plt Count (150-400) X10^3/uL Neut % (Auto) (50-75) % Lymph % (Auto) (25-40) % [place] % (Auto) (3-14) % Eos % (Auto) (2-4) % Baso % (Auto) (0-2) % Neut # (Auto) (6659-6350) /uL Lymph # (Auto) (4865-4115) /uL [place] # (Auto) (0-900) /uL Eos # (Auto) (0-450) /uL Baso # (Auto) (0-100) /uL Total Counted Seg Neutrophils % Band Neutrophils % Lymphocytes % (Manual) Atypical Lymphs % Monocytes % (Manual) Eosinophils % (Manual) Basophils % (Manual) Metamyelocytes % Myelocytes % Promyelocytes % Blast Cells % Neutrophils # (Manual) Nucleated RBCs Differential Comment Hypersegmented Neuts Hypogranular Neuts Reactive Lymphocytes Plasma Cells Smudge Cells Other Cell Type Toxic Granulation Toxic Vacuolation Dohle Bodies Sandhya Rods WBC Morphology Comment Platelet Estimate Clumped Platelets Plt Morphology Comment RBC Morphology Dimorphic RBCs Polychromasia Hypochromasia Poikilocytosis Basophilic Stippling Anisocytosis Microcytosis Macrocytosis Spherocytes Pappenheimer Bodies Sickle Cells Target Cells Tear Drop Cells Ovalocytes Stomatocytes Helmet Cells [place] Bodies [place] Rings Ifeoma Cells Acanthocytes (Spur) Rouleaux Schistocytes Sodium (137-145) mmol/L Potassium (3.4-5.1) mmol/L Chloride (98-107) mmol/L Carbon Dioxide (22-32) mmol/L BUN (9-20) mg/dL Creatinine (0.66-1.25) mg/dL Estimated GFR (>60) mL/min BUN/Creatinine Ratio (6-22) Glucose (70-100) mg/dL Calcium (8.4-10.2) mg/dL Total Bilirubin (0.2-1.3) mg/dL AST (17-59) IU/L ALT (<50) IU/L Alkaline Phosphatase (38-126) U/L Total Protein (6.3-8.2) g/dL Albumin (3.5-5.0) g/dL Globulin (1.7-4.1) g/dL Albumin/Globulin Ratio (1.0-2.8) Lipase (23-300) U/L Urine Color Yellow Urine Appearance Clear Urine pH 6.0 (4.5-8.0) Ur Specific [place] 1.020 (1.000-1.035) Urine Protein 2+ H (Negative) Urine Glucose (UA) Negative (Negative) g/dL Urine Ketones Negative (NEGATIVE) Urine Occult Blood Trace-lysed (Negative) Urine Nitrate Negative (Negative) Urine Bilirubin Negative (NEGATIVE) Urine Urobilinogen 1.0 (0.2) E.U./dL Ur Leukocyte Esterase Negative (NEGATIVE) Urine RBC None seen (0-5/HPF) Urine WBC None seen (0-5/HPF) Urine Bacteria None seen (None) Ur Culture Indicated? Cult not indicated U Morph 300 ng/mL cutoff Negative (Negative) Ur Oxycodone Screen Negative (Negative) Urine Methadone Screen Negative (Negative) Acetaminophen < 10 L (10-30) ug/mL Ur Barbiturates Screen Negative (Negative) U Tricyclic Antidepress Negative (Negative) Ur Phencyclidine Scrn Negative (Negative) Ur Amphetamines Screen Negative (Negative) U Methamphetamines Scrn Negative (Negative) Ur MDMA Scrn (Ecstasy) Negative (Negative) U Benzodiazepines Scrn Negative (Negative) Urine Cocaine Screen Negative (Negative) U Marijuana (THC) Screen Negative (Negative) Ethyl Alcohol ( - 10) mg/dL 07/16/19 07/16/19 07/16/19 Range/Units 23:44 23:44 23:44 WBC 7.4 (4.5-11.0) X10^3/uL RBC 4.97 (4.5-5.9) X10^6/uL Hgb 17.3 (13.5-17.5) g/dL Hct 48.3 (41-53) % MCV 97.3 (80-100) fL MCH 34.9 H (26-34) PG MCHC 35.8 (30-36) % RDW 13.1 (11.6-14.8) % Plt Count 209 (150-400) X10^3/uL Neut % (Auto) 60.8 (50-75) % Lymph % (Auto) 32.3 (25-40) % [place] % (Auto) 5.3 (3-14) % Eos % (Auto) 0.8 L (2-4) % Baso % (Auto) 0.8 (0-2) % Neut # (Auto) 4500 (0880-5745) /uL Lymph # (Auto) 2400 (6880-4236) /uL [place] # (Auto) 400 (0-900) /uL Eos # (Auto) 100 (0-450) /uL Baso # (Auto) 100 (0-100) /uL Total Counted Cancelled Seg Neutrophils % Cancelled Band Neutrophils % Cancelled Lymphocytes % (Manual) Cancelled Atypical Lymphs % Cancelled Monocytes % (Manual) Cancelled Eosinophils % (Manual) Cancelled Basophils % (Manual) Cancelled Metamyelocytes % Cancelled Myelocytes % Cancelled Promyelocytes % Cancelled Blast Cells % Cancelled Neutrophils # (Manual) Cancelled Nucleated RBCs Cancelled Differential Comment Cancelled Hypersegmented Neuts Cancelled Hypogranular Neuts Cancelled Reactive Lymphocytes Cancelled Plasma Cells Cancelled Smudge Cells Cancelled Other Cell Type Cancelled Toxic Granulation Cancelled Toxic Vacuolation Cancelled Dohle Bodies Cancelled Sandhya Rods Cancelled WBC Morphology Comment Cancelled Platelet Estimate Cancelled Clumped Platelets Cancelled Plt Morphology Comment Cancelled RBC Morphology Cancelled Dimorphic RBCs Cancelled Polychromasia Cancelled Hypochromasia Cancelled Poikilocytosis Cancelled Basophilic Stippling Cancelled Anisocytosis Cancelled Microcytosis Cancelled Macrocytosis Cancelled Spherocytes Cancelled Pappenheimer Bodies Cancelled Sickle Cells Cancelled Target Cells Cancelled Tear Drop Cells Cancelled Ovalocytes Cancelled Stomatocytes Cancelled Helmet Cells Cancelled [place] Bodies Cancelled [place] Rings Cancelled Ifeoma Cells Cancelled Acanthocytes (Spur) Cancelled Rouleaux Cancelled Schistocytes Cancelled Sodium 144 (137-145) mmol/L Potassium 4.3 (3.4-5.1) mmol/L Chloride 101 (98-107) mmol/L Carbon Dioxide 32 (22-32) mmol/L BUN 15 (9-20) mg/dL Creatinine 0.90 (0.66-1.25) mg/dL Estimated GFR > 60.0 (>60) mL/min BUN/Creatinine Ratio 16.7 (6-22) Glucose 98 (70-100) mg/dL Calcium 8.7 (8.4-10.2) mg/dL Total Bilirubin 0.8 (0.2-1.3) mg/dL AST 79 H (17-59) IU/L ALT 49 (<50) IU/L Alkaline Phosphatase 100 (38-126) U/L Total Protein 7.7 (6.3-8.2) g/dL Albumin 4.8 (3.5-5.0) g/dL Globulin 2.9 (1.7-4.1) g/dL Albumin/Globulin Ratio 1.7 (1.0-2.8) Lipase 89 (23-300) U/L Urine Color Urine Appearance Urine pH (4.5-8.0) Ur Specific [place] (1.000-1.035) Urine Protein (Negative) Urine Glucose (UA) (Negative) g/dL Urine Ketones (NEGATIVE) Urine Occult Blood (Negative) Urine Nitrate (Negative) Urine Bilirubin (NEGATIVE) Urine Urobilinogen (0.2) E.U./dL Ur Leukocyte Esterase (NEGATIVE) Urine RBC (0-5/HPF) Urine WBC (0-5/HPF) Urine Bacteria (None) Ur Culture Indicated? U Morph 300 ng/mL cutoff (Negative) Ur Oxycodone Screen (Negative) Urine Methadone Screen (Negative) Acetaminophen (10-30) ug/mL Ur Barbiturates Screen (Negative) U Tricyclic Antidepress (Negative) Ur Phencyclidine Scrn (Negative) Ur Amphetamines Screen (Negative) U Methamphetamines Scrn (Negative) Ur MDMA Scrn (Ecstasy) (Negative) U Benzodiazepines Scrn (Negative) Urine Cocaine Screen (Negative) U Marijuana (THC) Screen (Negative) Ethyl Alcohol 286 H ( - 10) mg/dL MDM Narrative Medical decision making narrative: Stable upon arrival. Had minor shaking. He states that his last drink was 10 hours ago however his alcohol level was elevated. Stated that he felt much better after the Ativan. Patient is medically cleared. He would like to consider detox. He states that he should never have started drinking after the last time he went through withdrawals. Patient asked to stay in the emergency department until he can be transferred to a detox facility. Will continue to monitor. Care turned over to Dr. Gtz for disposition Discharge Plan Departure Patient Disposition: Home Clinical Impression: Alcoholic intoxication Qualifiers: Complication of substance-induced condition: with unspecified complication Qualified Code(s): F10.929 - Alcohol use, unspecified with intoxication, unspecified Prescriptions: No Action lorazepam 1 MG tablet 1 tab PO BIDP PRNQty: 20 RF: 1 atenolol 25 MG tablet 12.5 mg PO QDAY Qty: 30 RF: 0 ondansetron [Zofran ODT] 4 MG tablet,disintegrating 4 mg Sublingual Q6HP PRNQty: 20 RF: 0 ondansetron 4 mg tablet,disintegrating 4 mg PO Q8-12H PRN (Reason: nausea and vomiting) Qty: 8 RF: 0 Referrals: Tea Flores ARNP [Primary Care Provider] -
[2019-07-16] MEDS: LORazepam 2 MG/ML INJ 1 MG IV (23:31)
[2019-07-16 23:48] LABS: Bacteria Urine None Seen; RBC Urine None Seen (0-5/HPF); WBC Urine None Seen (0-5/HPF)
[2019-07-16 23:50] LABS: Appearance Urine UA CLEAR; Bilirubin Urine UA NEGATIVE (NEGATIVE); Color Urine UA YELLOW; Glucose Urine UA NEGATIVE (Negative); Ketones Urine UA NEGATIVE (NEGATIVE); Leukocyte Esterase Urine UA NEGATIVE (NEGATIVE); Nitrite Urine UA NEGATIVE (Negative); Occult Blood Urine UA TRACE-LYSED (Negative); Protein Urine UA 2+ (Negative)
[2019-07-16 23:54] LABS: Add Manual Diff / Slide Review NO; Basophils Absolute Auto 100 /uL (0-100); Basophils Percent Auto 0.8 % (0-2); Eosinophils Absolute Auto 100 /uL (0-450); Eosinophils Percent Auto 0.8 % (2-4); Hematocrit 48.3 % (41-53); Hemoglobin 17.3 g/dL (13.5-17.5); Lymphocytes Absolute Auto 2400 /uL (1100-4500); Lymphocytes Percent Auto 32.3 % (25-40); Mean Corpuscular HGB Conc 35.8 % (30-36); Mean Corpuscular Hemoglobin 34.9 PG (26-34); Mean Corpuscular Volume 97.3 fL (80-100); Monocytes Absolute Auto 400 /uL (0-900); Monocytes Percent Auto 5.3 % (3-14); Neutrophils Absolute Auto 4500 /uL (1500-7000); Neutrophils Percent Auto 60.8 % (50-75); Platelet Count 209 X10^3/uL (150-400); Red Blood Cell Count 4.97 X10^6/uL (4.5-5.9); Red Cell Distribution Width 13.1 % (11.6-14.8); White Blood Cell Count 7.4 X10^3/uL (4.5-11.0)
[2019-07-16 23:56] LABS: UR Morphine/Opiate cutoff 300 Negative (Negative); Ur Creatinine 50 (Normal); Ur Specific Gravity 1.025 (Normal); Urine Amphetamines Negative (Negative); Urine Barbiturates Negative (Negative); Urine Benzodiazepines Negative (Negative); Urine Cocaine Negative (Negative); Urine MDMA Negative (Negative); Urine Methadone Negative (Negative); Urine Methamphetamines Negative (Negative); Urine Oxycodone Negative (Negative); Urine Phencyclidine Negative (Negative); Urine Tetrahydrocannabinol Negative (Negative); Urine Tricyclic Antidepressant Negative (Negative); Urine pH 5 (Normal)
[2019-07-17] VITALS (17 sets, daily range): BP systolic 118–133; BP diastolic 64–80; PULSE 74–100; RESP 15–20; O2SAT 95–100
[2019-07-17 00:06] LABS: Culture Indicated Urine Cult Not Indicated
[2019-07-17 00:15] LABS: Ethanol (ETOH) 286 mg/dL; Lipase 89 U/L (23-300)
[2019-07-17 00:26] LABS: Acetaminophen < 10 ug/mL (10-30)
[2019-07-17 00:51] LABS: Alanine Aminotransferase 49 IU/L (<50); Albumin 4.8 g/dL (3.5-5.0); Albumin Globulin Ratio 1.7 (1.0-2.8); Alkaline Phosphatase 100 U/L (38-126); Aspartate Aminotransferase 79 IU/L (17-59); BUN Creatinine Ratio 16.7 (6-22); Bilirubin Total 0.8 mg/dL (0.2-1.3); Blood Urea Nitrogen 15 mg/dL (9-20); Calcium 8.7 mg/dL (8.4-10.2); Carbon Dioxide 32 mmol/L (22-32); Chloride 101 mmol/L (98-107); Estimated Glomerular Filt Rate > 60.0 mL/min (>60); Globulin 2.9 g/dL (1.7-4.1); Glucose 98 mg/dL (70-100); HEMOLYSIS 26 (0-50); Potassium 4.3 mmol/L (3.4-5.1); Sodium 144 mmol/L (137-145); Total Protein 7.7 g/dL (6.3-8.2)
[2019-07-17] MEDS: LORazepam 2 MG/ML INJ 1 MG IV (07:23)
[2019-07-17] MEDS: ONDANSETRON 4 MG/2 ML INJ IV (07:23)
--- NOTE | 2019-07-17 08:13 | PC.NURSE ---
Pt on phone with [facility]
== END 2019-07-17 11:25 | disposition home or self-care (01) ==
PROVIDERS: Emergency Medicine; Emergency Provider Emergency Medicine; PCP Nurse Practitioner Family
DX: F10.929 Alcohol use, unspecified with intoxication, unspecified (principal)
CPT/HCPCS: 36415; 80053; 80305; 80320; 80329; 81001; 83690; 85025; 96374; 96375; 96376; 99284; 99285; G0480; J2060; J2405

== ENCOUNTER 2019-08-18 12:39 | Emergency (ER) | payer OTHER, MEDICAID, SELFPAY ==
[2019-08-18 12:45] VITALS: BP 151/88; PULSE 90; PULSE 92; RESP 20; TEMP 37; O2SAT 96; O2SAT 98; BMI 21.6
--- NOTE | 2019-08-18 13:16 | ED_ITS ---
HPI - Alcohol <JAYMIE Arrington- - Last Filed: 08/18/19 18:47> General Chief Complaint: Toxicology Problem Stated Complaint: ETOH withdrawls Time Seen by Provider: 08/18/19 12:40 Source: patient Mode of arrival: Ambulatory Limitations: no limitations History of Present Illness HPI narrative: The patient is a 24-year-old male current smoker with history of alcoholism who presents with a chief complaint of wanting alcohol detox. The patient states he degrees early drinks 24 beers a day or so and a 5th of whiskey. He states he has been on a 6 day [place], last use approximately 4 pippa rs prior to arrival. Patient states that he is frustrated with his alcoholism, that he is losing his house, his car and his job. He admits to using cocaine and oxycodone 5 days ago. He denies any suicidal plans, but admits to hopelessness related to his alcoholism. He does not want her anything self or anybody else. 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 He states he has been to [facility] crisis detox before, and is interested in going back there. He denies any medical or surgical history other than his alcohol problems. He states that he does not have a primary care provider Related Data Previous Rx's Medication Instructions Recorded lorazepam See Rx Instructions .ROUTE 08/18/19 .COMPLEX PRN #19 tab Allergies Allergy/AdvReac Type Severity Reaction Status Date / Time No Known Drug Allergies Allergy Verified 07/02/19 19:39 Review of Systems [facility] Last Filed: 08/18/19 18:47> Review of Systems Narrative: GENERAL: Denies chills, fatigue, malaise, fever, sweats. HEENT: Denies sinus pain, ear pain, sore throat, difficulty swallowing, diz ziness. RESPIRATORY: Denies dyspnea, cough, wheezing, hemoptysis, sputum. CARDIOVASCULAR: Denies chest pain, palpitations, orthopnea, edema, GASTROINTESTINAL: Denies nausea, vomiting, abdominal pain, diarrhea, constipation, melena. : Denies dysuria, frequency, incontinence, hematuria, urinary retention. MUSCULOSKELETAL: denies weakness, joint pain, or bony pain SKIN: Denies rash, skin lesions, or other NEUROLOGIC: Denies weakness, headache, numbness, change in speech, confusion, seizures, incoordination. PSYCHIATRIC: See HPI 12 point review of systems is negative except for those stated above Patient History <TORI Arrington - Last Filed: 08/18/19 18:47> Medical History (Updated 08/18/19 @ 17:55 by TORI Arrington) Alcohol abuse (Acute) Cervical radiculopathy (Inactive) Elevated transaminase level (Inactive) Hypokalemia (Inactive) Neck pain on right side (Inactive) Social History Smoking Status: Current every day smoker substance use type: marijuana additional social history: Previous heavy EtOH use, occasional THC Smoking Status: Current every day smoker tobacco type: cigarettes alcohol intake frequency: 3 or more drinks per day Alcohol type: beer and hard liquor Substance Use Type: crack/cocaine and painkillers Exam <TORI Arrington - Last Filed: 08/18/19 18:47> Narrative Exam Narrative: GENERAL: This is a well-nourished, well-developed patient, in no acute distress HEAD: Atraumatic. Normocephalic. No temporal or scalp tenderness. EYES: Pupils equal round and reactive. Extraocular motions intact. No scleral icterus. No injection or drainage. ENT: Nose without bleeding, purulent drainage or septal hematoma. Throat without erythema, tonsillar hypertrophy or exudate. Uvula midline. Airway patent. NECK: Trachea midline. No JVD or lymphadenopathy. Supple, nontender, no meningeal signs. CARDIOVASCULAR: Regular rate and rhythm without murmurs, gallops, or rubs. RESPIRATORY: Clear to auscultation. Breath sounds equal bilaterally. No wheezes, rales, or rhonchi. No cough. No increased respiratory effort. No accessory muscle use. GASTROINTESTINAL: Abdomen soft, non-tender, nondistended. No hepato-splenome amalia, or palpable masses. No guarding. EXTREMITIES: No clubbing, cyanosis, or edema. No joint tenderness, effusion, or edema noted. BACK: Nontender without deformity or crepitance. No flank tenderness. NEURO: AOx3. Interactive. Using all extremities equally. Slight tremor noted to finger tip. SKIN: No rash or erythema visible skin Initial Vital Signs Initial Vital Signs: Vital Signs Temperature 98.6 F 08/18/19 12:45 Pulse Rate 92 H 08/18/19 12:45 Respiratory Rate 20 08/18/19 12:45 Blood Pressure 151/88 H 08/18/19 12:45 Pulse Oximetry 96 08/18/19 12:45 <Rosemarie Post DO - Last Filed: 08/21/19 08:05> Initial Vital Signs Initial Vital Signs: Vital Signs Temperature 98.6 F 08/18/19 12:45 Pulse Rate 92 H 08/18/19 12:45 Respiratory Rate 20 08/18/19 12:45 Blood Pressure 151/88 H 08/18/19 12:45 Pulse Oximetry 96 08/18/19 12:45 Course <TORI Arrington - Last Filed: 08/18/19 18:47> Orders Ordered: Discontinued Medications Ibuprofen (Advil) 800 mg PO NOW ONE Stop: 08/18/19 14:04 Last Admin: 08/18/19 14:09 Dose: 800 mg Documented by: SCANAPO Lorazepam (Ativan) 1 mg PO NOW ONE Stop: 08/18/19 14:53 Last Admin: 08/18/19 15:06 Dose: 1 mg Documented by: SCANAPO Nicotine (Nicoderm) 14 mg TOP NOW ONE Stop: 08/18/19 17:07 Last Admin: 08/18/19 17:14 Dose: 14 mg Documented by: GRETTA Reevaluation(s) Reevaluation #1: Discussed with patient that his alcohol level is too high to go to crisis detox center at this point time. Discussed waiting, pushing fluids etcetera. Discussed that we will start sending over paperwork and interview process. Time: 14:37 Vital Signs Vital signs: Vital Signs - 8 hr 08/18/19 12:45 08/18/19 14:30 08/18/19 16:30 Temperature 98.6 F Pulse Rate 90 73 84 Respiratory Rate 20 Blood Pressure 151/88 H Blood Pressure [Left Arm] 151/88 H 137/89 135/83 Pulse Oximetry 98 96 97 08/18/19 17:50 Temperature Pulse Rate 97 H Respiratory Rate Blood Pressure Blood Pressure [Left Arm] 146/87 H Pulse Oximetry 95 <Rosemarie Post DO - Last Filed: 08/21/19 08:05> Orders Ordered: Discontinued Medications Ibuprofen (Advil) 800 mg PO NOW ONE Stop: 08/18/19 14:04 Last Admin: 08/18/19 14:09 Dose: 800 mg Documented by: NAKIA Lorazepam (Ativan) 1 mg PO NOW ONE Stop: 08/18/19 14:53 Last Admin: 08/18/19 15:06 Dose: 1 mg Documented by: NAKIA Nicotine (Nicoderm) 14 mg TOP NOW ONE Stop: 08/18/19 17:07 Last Admin: 08/18/19 17:14 Dose: 14 mg Documented by: GRETTA Vital Signs Vital signs: Vital Signs - 8 hr 08/18/19 12:45 08/18/19 14:30 08/18/19 16:30 Temperature 98.6 F Pulse Rate 90 73 84 Respiratory Rate 20 Blood Pressure 151/88 H Blood Pressure [Left Arm] 151/88 H 137/89 135/83 Pulse Oximetry 98 96 97 08/18/19 17:50 Temperature Pulse Rate 97 H Respiratory Rate Blood Pressure Blood Pressure [Left Arm] 146/87 H Pulse Oximetry 95 MDM - Alcohol <TORI Arrington - Last Filed: 08/18/19 18:47> Lab Data Result diagrams: 08/18/19 13:14 08/18/19 13:14 Labs: Lab Results 08/18/19 08/18/19 08/18/19 Range/Units 13:14 13:14 13:14 WBC 5.4 (4.5-11.0) X10^3/uL RBC 4.93 (4.5-5.9) X10^6/uL Hgb 17.2 (13.5-17.5) g/dL Hct 47.9 (41-53) % MCV 97.1 (80-100) fL MCH 34.9 H (26-34) PG MCHC 35.9 (30-36) % RDW 12.8 (11.6-14.8) % Plt Count 152 (150-400) X10^3/uL Neut % (Auto) 49.2 L (50-75) % Lymph % (Auto) 39.9 (25-40) % [place] % (Auto) 7.0 (3-14) % Eos % (Auto) 2.7 (2-4) % Baso % (Auto) 1.2 (0-2) % Neut # (Auto) 2700 (2194-8378) /uL Lymph # (Auto) 2200 (5079-1109) /uL [place] # (Auto) 400 (0-900) /uL Eos # (Auto) 100 (0-450) /uL Baso # (Auto) 100 (0-100) /uL Sodium 143 (137-145) mmol/L Potassium 3.7 (3.4-5.1) mmol/L Chloride 102 (98-107) mmol/L Carbon Dioxide 31 (22-32) mmol/L BUN 9 (9-20) mg/dL Creatinine 0.80 (0.66-1.25) mg/dL Estimated GFR > 60.0 (>60) mL/min BUN/Creatinine Ratio 11.3 (6-22) Glucose 104 H (70-100) mg/dL Calcium 8.5 (8.4-10.2) mg/dL Total Bilirubin 0.6 (0.2-1.3) mg/dL AST 63 H (17-59) IU/L ALT 38 (<50) IU/L Alkaline Phosphatase 84 (38-126) U/L Total Protein 7.5 (6.3-8.2) g/dL Albumin 4.7 (3.5-5.0) g/dL Globulin 2.8 (1.7-4.1) g/dL Albumin/Globulin Ratio 1.7 (1.0-2.8) TSH 0.87 (0.47-4.68) uIU/mL Salicylates < 1.0 (<20) mg/dL U Morph 300 ng/mL cutoff (Negative) Ur Oxycodone Screen (Negative) Urine Methadone Screen (Negative) Acetaminophen < 10 L (10-30) ug/mL Ur Barbiturates Screen (Negative) U Tricyclic Antidepress (Negative) Ur Phencyclidine Scrn (Negative) Ur Amphetamines Screen (Negative) U Methamphetamines Scrn (Negative) Ur MDMA Scrn (Ecstasy) (Negative) U Benzodiazepines Scrn (Negative) Urine Cocaine Screen (Negative) U Marijuana (THC) Screen (Negative) Ethyl Alcohol 344 H ( - 10) mg/dL 08/18/19 08/18/19 Range/Units 13:50 17:20 WBC (4.5-11.0) X10^3/uL RBC (4.5-5.9) X10^6/uL Hgb (13.5-17.5) g/dL Hct (41-53) % MCV (80-100) fL MCH (26-34) PG MCHC (30-36) % RDW (11.6-14.8) % Plt Count (150-400) X10^3/uL Neut % (Auto) (50-75) % Lymph % (Auto) (25-40) % [place] % (Auto) (3-14) % Eos % (Auto) (2-4) % Baso % (Auto) (0-2) % Neut # (Auto) (3793-8404) /uL Lymph # (Auto) (7676-5279) /uL [place] # (Auto) (0-900) /uL Eos # (Auto) (0-450) /uL Baso # (Auto) (0-100) /uL Sodium (137-145) mmol/L Potassium (3.4-5.1) mmol/L Chloride (98-107) mmol/L Carbon Dioxide (22-32) mmol/L BUN (9-20) mg/dL Creatinine (0.66-1.25) mg/dL Estimated GFR (>60) mL/min BUN/Creatinine Ratio (6-22) Glucose (70-100) mg/dL Calcium (8.4-10.2) mg/dL Total Bilirubin (0.2-1.3) mg/dL AST (17-59) IU/L ALT (<50) IU/L Alkaline Phosphatase (38-126) U/L Total Protein (6.3-8.2) g/dL Albumin (3.5-5.0) g/dL Globulin (1.7-4.1) g/dL Albumin/Globulin Ratio (1.0-2.8) TSH (0.47-4.68) uIU/mL Salicylates (<20) mg/dL U Morph 300 ng/mL cutoff Negative (Negative) Ur Oxycodone Screen Negative (Negative) Urine Methadone Screen Negative (Negative) Acetaminophen (10-30) ug/mL Ur Barbiturates Screen Negative (Negative) U Tricyclic Antidepress Negative (Negative) Ur Phencyclidine Scrn Negative (Negative) Ur Amphetamines Screen Negative (Negative) U Methamphetamines Scrn Negative (Negative) Ur MDMA Scrn (Ecstasy) Negative (Negative) U Benzodiazepines Scrn Negative (Negative) Urine Cocaine Screen Negative (Negative) U Marijuana (THC) Screen Negative (Negative) Ethyl Alcohol 253 H ( - 10) mg/dL Urine Dip Bedside Urine Glucose Negative Bedside Urine Bilirubin - Negative Bedside Urine Ketone - Negative Urine Specific [place] 1.005 Bedside Urine Occult Blood - Negative Bedside Urine pH 7.0 Bedside Urine Protein - Negative Bedside Urine Urobilinogen - Negative Bedside Urine Nitrite - Negative Bedside Urine Leukocytes - Negative Esterase MDM Narrative Medical decision making narrative: The patient is a 24-year-old male presents with a chief complaint of needing alcohol detox. He states he has been to [facility] recently in like to go back there. Initial alcohol was 344 at 1:15 p.m.. The patient had his intake interview with [facility] and they said they would accept him as soon as his alcohol was below 250. Repeat alcohol at 5:20 p.m. was 253. Nursing called and spoke with Saúl from [facility], and he states that he soto except the patient at this point time. Ativan taper was sent to [facility] in [place] per request of the [facility] detox. Cab ride was arranged for the patient. Patient has no questions or concerns upon discharge and states understanding of return precautions as well as follow-up care. He is appreciative to be going to detox. <Rosemarie Post, DO - Last Filed: 08/21/19 08:05> Lab Data Labs: Lab Results 08/18/19 08/18/19 08/18/19 Range/Units 13:14 13:14 13:14 WBC 5.4 (4.5-11.0) X10^3/uL RBC 4.93 (4.5-5.9) X10^6/uL Hgb 17.2 (13.5-17.5) g/dL Hct 47.9 (41-53) % MCV 97.1 (80-100) fL MCH 34.9 H (26-34) PG MCHC 35.9 (30-36) % RDW 12.8 (11.6-14.8) % Plt Count 152 (150-400) X10^3/uL Neut % (Auto) 49.2 L (50-75) % Lymph % (Auto) 39.9 (25-40) % [place] % (Auto) 7.0 (3-14) % Eos % (Auto) 2.7 (2-4) % Baso % (Auto) 1.2 (0-2) % Neut # (Auto) 2700 (9029-4827) /uL Lymph # (Auto) 2200 (4550-3417) /uL [place] # (Auto) 400 (0-900) /uL Eos # (Auto) 100 (0-450) /uL Baso # (Auto) 100 (0-100) /uL Sodium 143 (137-145) mmol/L Potassium 3.7 (3.4-5.1) mmol/L Chloride 102 (98-107) mmol/L Carbon Dioxide 31 (22-32) mmol/L BUN 9 (9-20) mg/dL Creatinine 0.80 (0.66-1.25) mg/dL Estimated GFR > 60.0 (>60) mL/min BUN/Creatinine Ratio 11.3 (6-22) Glucose 104 H (70-100) mg/dL Calcium 8.5 (8.4-10.2) mg/dL Total Bilirubin 0.6 (0.2-1.3) mg/dL AST 63 H (17-59) IU/L ALT 38 (<50) IU/L Alkaline Phosphatase 84 (38-126) U/L Total Protein 7.5 (6.3-8.2) g/dL Albumin 4.7 (3.5-5.0) g/dL Globulin 2.8 (1.7-4.1) g/dL Albumin/Globulin Ratio 1.7 (1.0-2.8) TSH 0.87 (0.47-4.68) uIU/mL Salicylates < 1.0 (<20) mg/dL U Morph 300 ng/mL cutoff (Negative) Ur Oxycodone Screen (Negative) Urine Methadone Screen (Negative) Acetaminophen < 10 L (10-30) ug/mL Ur Barbiturates Screen (Negative) U Tricyclic Antidepress (Negative) Ur Phencyclidine Scrn (Negative) Ur Amphetamines Screen (Negative) U Methamphetamines Scrn (Negative) Ur MDMA Scrn (Ecstasy) (Negative) U Benzodiazepines Scrn (Negative) Urine Cocaine Screen (Negative) U Marijuana (THC) Screen (Negative) Ethyl Alcohol 344 H ( - 10) mg/dL 08/18/19 08/18/19 Range/Units 13:50 17:20 WBC (4.5-11.0) X10^3/uL RBC (4.5-5.9) X10^6/uL Hgb (13.5-17.5) g/dL Hct (41-53) % MCV (80-100) fL MCH (26-34) PG MCHC (30-36) % RDW (11.6-14.8) % Plt Count (150-400) X10^3/uL Neut % (Auto) (50-75) % Lymph % (Auto) (25-40) % [place] % (Auto) (3-14) % Eos % (Auto) (2-4) % Baso % (Auto) (0-2) % Neut # (Auto) (1223-0301) /uL Lymph # (Auto) (6965-2515) /uL [place] # (Auto) (0-900) /uL Eos # (Auto) (0-450) /uL Baso # (Auto) (0-100) /uL Sodium (137-145) mmol/L Potassium (3.4-5.1) mmol/L Chloride (98-107) mmol/L Carbon Dioxide (22-32) mmol/L BUN (9-20) mg/dL Creatinine (0.66-1.25) mg/dL Estimated GFR (>60) mL/min BUN/Creatinine Ratio (6-22) Glucose (70-100) mg/dL Calcium (8.4-10.2) mg/dL Total Bilirubin (0.2-1.3) mg/dL AST (17-59) IU/L ALT (<50) IU/L Alkaline Phosphatase (38-126) U/L Total Protein (6.3-8.2) g/dL Albumin (3.5-5.0) g/dL Globulin (1.7-4.1) g/dL Albumin/Globulin Ratio (1.0-2.8) TSH (0.47-4.68) uIU/mL Salicylates (<20) mg/dL U Morph 300 ng/mL cutoff Negative (Negative) Ur Oxycodone Screen Negative (Negative) Urine Methadone Screen Negative (Negative) Acetaminophen (10-30) ug/mL Ur Barbiturates Screen Negative (Negative) U Tricyclic Antidepress Negative (Negative) Ur Phencyclidine Scrn Negative (Negative) Ur Amphetamines Screen Negative (Negative) U Methamphetamines Scrn Negative (Negative) Ur MDMA Scrn (Ecstasy) Negative (Negative) U Benzodiazepines Scrn Negative (Negative) Urine Cocaine Screen Negative (Negative) U Marijuana (THC) Screen Negative (Negative) Ethyl Alcohol 253 H ( - 10) mg/dL Urine Dip Bedside Urine Glucose Negative Bedside Urine Bilirubin - Negative Bedside Urine Ketone - Negative Urine Specific [place] 1.005 Bedside Urine Occult Blood - Negative Bedside Urine pH 7.0 Bedside Urine Protein - Negative Bedside Urine Urobilinogen - Negative Bedside Urine Nitrite - Negative Bedside Urine Leukocytes - Negative Esterase Discharge Plan Departure Patient Disposition: Home Clinical Impression: Alcohol abuse Alcohol withdrawal Qualifiers: Complication of substance-induced condition: uncomplicated Qualified Code(s): F10.230 - Alcohol dependence with withdrawal, uncomplicated Discharge Date/Time: 08/18/19 18:06 Instructions: DI for Alcohol Abuse, DI for Drug Abuse and Drug Addiction, DI f or Drug or Alcohol Withdrawal Activity Restrictions/Additional Instructions: We have arranged for admission to [facility] detox for you. We have called a cab to take you there. Per their request I have sent a prescription of lorazepam to [facility] in [place] Please come back to the emergency department for any acute concerns. Please follow-up with primary care provider. Prescriptions: New lorazepam 1 mg tablet See Rx Instructions .ROUTE .COMPLEX PRN (Reason: alcohol withdrawal) Qty: 19 RF: 0 Referrals: Tea Flores ARNP [Primary Care Provider] -
[2019-08-18 13:25] LABS: Add Manual Diff / Slide Review NO; Basophils Absolute Auto 100 /uL (0-100); Basophils Percent Auto 1.2 % (0-2); Eosinophils Absolute Auto 100 /uL (0-450); Eosinophils Percent Auto 2.7 % (2-4); Hematocrit 47.9 % (41-53); Hemoglobin 17.2 g/dL (13.5-17.5); Lymphocytes Absolute Auto 2200 /uL (1100-4500); Lymphocytes Percent Auto 39.9 % (25-40); Mean Corpuscular HGB Conc 35.9 % (30-36); Mean Corpuscular Hemoglobin 34.9 PG (26-34); Mean Corpuscular Volume 97.1 fL (80-100); Monocytes Absolute Auto 400 /uL (0-900); Neutrophils Absolute Auto 2700 /uL (1500-7000); Neutrophils Percent Auto 49.2 % (50-75); Platelet Count 152 X10^3/uL (150-400); Red Blood Cell Count 4.93 X10^6/uL (4.5-5.9); Red Cell Distribution Width 12.8 % (11.6-14.8); White Blood Cell Count 5.4 X10^3/uL (4.5-11.0)
[2019-08-18 13:42] LABS: Acetaminophen < 10 ug/mL (10-30); Alanine Aminotransferase 38 IU/L (<50); Albumin 4.7 g/dL (3.5-5.0); Albumin Globulin Ratio 1.7 (1.0-2.8); Alkaline Phosphatase 84 U/L (38-126); Aspartate Aminotransferase 63 IU/L (17-59); BUN Creatinine Ratio 11.3 (6-22); Bilirubin Total 0.6 mg/dL (0.2-1.3); Blood Urea Nitrogen 9 mg/dL (9-20); Calcium 8.5 mg/dL (8.4-10.2); Carbon Dioxide 31 mmol/L (22-32); Chloride 102 mmol/L (98-107); Estimated Glomerular Filt Rate > 60.0 mL/min (>60); Globulin 2.8 g/dL (1.7-4.1); Glucose 104 mg/dL (70-100); HEMOLYSIS 16 (0-50); Potassium 3.7 mmol/L (3.4-5.1); Salicylate < 1.0 mg/dL (<20); Sodium 143 mmol/L (137-145); Total Protein 7.5 g/dL (6.3-8.2)
[2019-08-18 13:49] LABS: Ethanol (ETOH) 344 mg/dL
[2019-08-18 14:05] LABS: UR Morphine/Opiate cutoff 300 Negative (Negative); Ur Creatinine Normal (Normal); Ur Specific Gravity Normal (Normal); Urine Amphetamines Negative (Negative); Urine Barbiturates Negative (Negative); Urine Benzodiazepines Negative (Negative); Urine Cocaine Negative (Negative); Urine MDMA Negative (Negative); Urine Methadone Negative (Negative); Urine Methamphetamines Negative (Negative); Urine Oxycodone Negative (Negative); Urine Phencyclidine Negative (Negative); Urine Tetrahydrocannabinol Negative (Negative); Urine Tricyclic Antidepressant Negative (Negative); Urine pH Normal (Normal)
[2019-08-18] MEDS: IBUPROFEN 400 MG TABLET 800 MG PO (14:09)
[2019-08-18 14:15] LABS: Thyroid Stimulating Hormone 0.87 uIU/mL (0.47-4.68)
[2019-08-18 14:30] VITALS: BP 137/89; PULSE 73; O2SAT 96
[2019-08-18] MEDS: LORazepam 0.5 MG TABLET 1 MG PO (15:06)
[2019-08-18 16:30] VITALS: BP 135/83; PULSE 84; O2SAT 97
[2019-08-18] MEDS: NICOTINE 14 PATCH 14 MG TOP (17:14)
[2019-08-18 17:41] LABS: Ethanol (ETOH) 253 mg/dL
--- NOTE | 2019-08-18 17:48 | PC.NURSE ---
spoke with kyra will accept patient at [facility] for detox. pt will transport via taxi to facility. rx for ativan electronically sent to [facility] in [place].
[2019-08-18 17:50] VITALS: BP 146/87; PULSE 97; O2SAT 95
== END 2019-08-18 18:06 | disposition home or self-care (01) ==
PROVIDERS: Emergency Provider Nurse Practitioner Family; PCP Nurse Practitioner Family
DX: F10.230 Alcohol dependence with withdrawal, uncomplicated (principal)
CPT/HCPCS: 36415; 80053; 80305; 80320; 80329; 81003; 84443; 85025; 99283; G0480

== ENCOUNTER 2019-08-25 12:45 | Emergency (ER) | payer OTHER, SELFPAY ==
[2019-08-25 12:53] VITALS: BP 137/82; PULSE 96; RESP 18; TEMP 36.7; O2SAT 97; BMI 23.0
[2019-08-25 13:22] LABS: Add Manual Diff / Slide Review NO; Basophils Absolute Auto 100 /uL (0-100); Basophils Percent Auto 1.3 % (0-2); Eosinophils Absolute Auto 100 /uL (0-450); Hematocrit 47.9 % (41-53); Hemoglobin 16.9 g/dL (13.5-17.5); Lymphocytes Absolute Auto 2100 /uL (1100-4500); Lymphocytes Percent Auto 43.4 % (25-40); Mean Corpuscular HGB Conc 35.2 % (30-36); Mean Corpuscular Hemoglobin 34.5 PG (26-34); Mean Corpuscular Volume 98.1 fL (80-100); Monocytes Absolute Auto 600 /uL (0-900); Monocytes Percent Auto 12.2 % (3-14); Neutrophils Absolute Auto 2000 /uL (1500-7000); Neutrophils Percent Auto 41.1 % (50-75); Platelet Count 158 X10^3/uL (150-400); Red Blood Cell Count 4.88 X10^6/uL (4.5-5.9); Red Cell Distribution Width 12.9 % (11.6-14.8); White Blood Cell Count 4.9 X10^3/uL (4.5-11.0)
[2019-08-25 13:31] LABS: UR Morphine/Opiate cutoff 300 Negative (Negative); Ur Creatinine Normal (Normal); Ur Specific Gravity Normal (Normal); Urine Amphetamines Negative (Negative); Urine Barbiturates Negative (Negative); Urine Benzodiazepines Negative (Negative); Urine Cocaine Negative (Negative); Urine MDMA Negative (Negative); Urine Methadone Negative (Negative); Urine Methamphetamines Negative (Negative); Urine Oxycodone Negative (Negative); Urine Phencyclidine Negative (Negative); Urine Tetrahydrocannabinol Negative (Negative); Urine Tricyclic Antidepressant Negative (Negative); Urine pH Normal (Normal)
[2019-08-25 13:48] LABS: Ethanol (ETOH) 327 mg/dL
[2019-08-25 13:50] LABS: Alanine Aminotransferase 94 IU/L (<50); Albumin 4.7 g/dL (3.5-5.0); Albumin Globulin Ratio 1.6 (1.0-2.8); Alkaline Phosphatase 77 U/L (38-126); Aspartate Aminotransferase 96 IU/L (17-59); BUN Creatinine Ratio 11.1 (6-22); Bilirubin Total 0.5 mg/dL (0.2-1.3); Bilirubin Unconjugated 0.3 mg/dL (0.0-1.1); Blood Urea Nitrogen 10 mg/dL (9-20); Calcium 8.8 mg/dL (8.4-10.2); Carbon Dioxide 33 mmol/L (22-32); Chloride 108 mmol/L (98-107); Estimated Glomerular Filt Rate > 60.0 mL/min (>60); Glucose 111 mg/dL (70-100); HEMOLYSIS 18 (0-50); Lipase 196 U/L (23-300); Magnesium 2.6 mg/dL (1.6-2.3); Potassium 4.6 mmol/L (3.4-5.1); Sodium 148 mmol/L (137-145); Total Protein 7.7 g/dL (6.3-8.2)
--- NOTE | 2019-08-25 14:28 | CM.SWNOTE ---
Discharge Planning/Care Management BUSINESS UNIT DIRECTOR - Editor Department Assessment Start: 08/25/19 14:05 Freq: Status: Active Protocol: Document 08/25/19 14:09 DPL (Rec: 08/25/19 14:28 DPL [id number]) BUSINESS UNIT DIRECTOR/Editor Department Assessment Start date 08/25/19 Visit Start Time 12:00 End date 08/25/19 Visit End Time 03:00 Total time Care Management spent on 180 patient visit-in minutes Presenting Problem Pt presents with alcohol withdrawls, is well known to this ED due to extensive hx of alcohol abuse and ED visits for detox. Pt presents as calm and cooperative, requesting detox placement again. He was just seen 1-week ago for same reason, went to detox with no lasting benefit. Precipitating Event(s) Chronic alcohol abuse and hx of seizures with withdrawl symptoms. Current Behavioral Health Provider(s) Not currently, however he Include Facility, Provider, Ph. # would benefit from counseling for chronic substance abuse/ maladaptive coping behaviors, as well as further assessment for depression/anxiety. Psych. Hx Mental Health and Chemical Pt states that he has had Dependency multiple detox visits and inpt substance abuse treatments, all without lasting benefit. Family Hx of Behavioral Abuse [place] Support System(s) Pt's primary identified contact is his mother, who also resides in [place]. School/Work Pt is employed. Orientation (Person/Place/Time) Pt is oriented X3. Affect Flat Thought Content - Specify/Describe Appropriate Obsessions, Delusions, Hallucinations Thought Processes (Xyqvxkw-Ddcxmvzt-Ajlf Congruent, able to reliably Ldashfgq-Ttldjkqm-Aslmhcwhvt- self-report. Ytnbhzmgyilabv-Omceflv-Dtelpwfblgbm- Thought Blocking) Speech (Ovxgin-Vxya-Hedsrdm-Rapid-Soft- Normal Loud-Pressured) Motor (Maeomm-Hbjshxnrk-Uffx-Other) Normal Insight (Present-Partially Present- Partially present-pt's ETOH Impaired) level in ED was 327 at admission. Judgement (Intact-Impaired) Impaired due to intoxification , however able to make decisions re: wanting detox placement. Impulse Control (Adequate-Impaired) Adequate Memory (Imtmwbvru-Jpxsge-Ekokda, Intact Impaired-Intact) Concentration (Intact-Impaired) Intact Attention (Intact-Impaired) Intact Behavior (Appropriate-Inappropriate) Appropriate Suicidal Ideation (Plan) No Homicidal Ideation (Plan) No Intervention BUSINESS UNIT DIRECTOR assessed pt, is assisting in securing detox placement once pt's blood alcohol levels are low enough to qualify for detox. RA Plan Admit to [facility] once his blood alcohol reaches 225 or below.
[2019-08-25] MEDS: LORazepam 0.5 MG TABLET 1 MG PO (14:50)
[2019-08-25 15:00] VITALS: BP 126/58; PULSE 73; RESP 16; O2SAT 100
--- NOTE | 2019-08-25 16:08 | PC.NURSE ---
yancy provider at [facility].
[2019-08-25 16:49] LABS: Bacteria Urine None Seen; RBC Urine None Seen (0-5/HPF)
[2019-08-25 16:54] LABS: Appearance Urine UA CLEAR; Bilirubin Urine UA NEGATIVE (NEGATIVE); Color Urine UA YELLOW; Glucose Urine UA NEGATIVE (Negative); Ketones Urine UA NEGATIVE (NEGATIVE); Leukocyte Esterase Urine UA NEGATIVE (NEGATIVE); Nitrite Urine UA NEGATIVE (Negative); Occult Blood Urine UA NEGATIVE (Negative); Protein Urine UA NEGATIVE (Negative); Urobilinogen Urine UA 0.2 E.U./dL (0.2)
[2019-08-25 17:03] LABS: Culture Indicated Urine Cult Not Indicated; Squamous Epithelial Cell Urine 0-1 /HPF (0-5/HPF); WBC Urine 0-1/HPF (0-5/HPF)
--- NOTE | 2019-08-25 17:56 | ED.ALCOHOL ---
HPI - Alcohol <TORI Arrington - Last Filed: 08/25/19 18:00> General Chief Complaint: Toxicology Problem Stated Complaint: alcohol withdrawls 4 hours Time Seen by Provider: 08/25/19 12:52 Source: patient Mode of arrival: Ambulatory Limitations: no limitations History of Present Illness HPI narrative: The patient is a 24-year-old male current smoker with history of alcoholism who presents with a chief complaint of ?. I am detoxing from alcohol.He was seen and evaluated this facility on 08/18 and discharged to [facility]. He states that he completed detox there, was discharged and immediately relapse. He denies any thoughts of hurting himself or anybody else. He states that he was drinking vodka, last drink 4 hours ago. He is unable to identify how much he has had to drink today. He does endorse sporadic cocaine use. Denies any hallucinations, complains of general nausea and shakes. Related Data Home Medications Medication Instructions Recorded Confirmed No Known Home Medications 08/25/19 08/25/19 Allergies Allergy/AdvReac Type Severity Reaction Status Date / Time No Known Drug Allergies Allergy Verified 08/25/19 12:53 Review of Systems <TORI Arrington - Last Filed: 08/25/19 18:00> Review of Systems Narrative: GENERAL: Denies chills, fatigue, malaise, fever, sweats. HEENT: Denies sinus pain, ear pain, sore throat, difficulty swallowing, dizziness. RESPIRATORY: Denies dyspnea, cough, wheezing, hemoptysis, sputum. CARDIOVASCULAR: Denies chest pain, palpitations, orthopnea, edema, GASTROINTESTINAL: Denies nausea, vomiting, abdominal pain, diarrhea, constipation, melena. : Denies dysuria, frequency, incontinence, hematuria, urinary retention. MUSCULOSKELETAL: denies weakness, joint pain, or bony pain SKIN: Denies rash, skin lesions, or other NEUROLOGIC: Denies weakness, headache, numbness, change in speech, confusion, seizures, incoordination. PSYCHIATRIC: See HPI 12 point review of systems is negative except for those stated above Patient History <TORI Arrington - Last Filed: 08/25/19 18:00> Medical History Alcohol abuse (Acute) Cervical radiculopathy (Inactive) Elevated transaminase level (Inactive) Hypokalemia (Inactive) Neck pain on right side (Inactive) Surgical History No history of previous surgery (Chronic) Family History Father Age: 53 Diabetes mellitus Hypertension Social History Smoking Status: Current every day smoker substance use type: marijuana additional social history: Previous heavy EtOH use, occasional THC Smoking Status: Current every day smoker tobacco type: cigarettes alcohol intake frequency: 3 or more drinks per day Alcohol type: beer and hard liquor Substance Use Type: crack/cocaine and painkillers Exam <TORI Arrington - Last Filed: 08/25/19 18:00> Narrative Exam Narrative: GENERAL: This is a well-nourished, well-developed patient, no acute distress HEAD: Atraumatic. Normocephalic. No temporal or scalp tenderness. EYES: Pupils equal round and reactive. Extraocular motions intact. No scleral icterus. No injection or drainage. ENT: Nose without bleeding, purulent drainage or septal hematoma. Throat without erythema, tonsillar hypertrophy or exudate. Uvula midline. Airway patent. NECK: Trachea midline. No JVD or lymphadenopathy. Supple, nontender, no meningeal signs. CARDIOVASCULAR: Regular rate and rhythm RESPIRATORY: Clear to auscultation. Breath sounds equal bilaterally. No wheezes, rales, or rhonchi. No cough. No increased respiratory effort. No accessory muscle use. GASTROINTESTINAL: Abdomen soft, non-tender, nondistended. No hepato-splenomegaly, or palpable masses. No guarding. EXTREMITIES: No clubbing, cyanosis, or edema. No joint tenderness, effusion, or edema noted. Very slight tremor to touch of hand, no visible tremor. BACK: Nontender without deformity or crepitance. No flank tenderness. NEURO: AOx3. Slightly slurred speech. Using all extremities equally. Denies SI or HI. SKIN: No rash or erythema on visible skin Initial Vital Signs Initial Vital Signs: Vital Signs Temperature 98.1 F 08/25/19 12:53 Pulse Rate 96 H 01/03/20 12:53 Respiratory Rate 18 08/25/19 12:53 Blood Pressure 137/82 08/25/19 12:53 Pulse Oximetry 97 08/25/19 12:53 <Constance William DO - Last Filed: 08/25/19 19:02> Initial Vital Signs Initial Vital Signs: Vital Signs Temperature 98.1 F 08/25/19 12:53 Pulse Rate 96 H 08/25/19 12:53 Respiratory Rate 18 08/25/19 12:53 Blood Pressure 137/82 08/25/19 12:53 Pulse Oximetry 97 08/25/19 12:53 Course <JAYMIE Arrington-BC - Last Filed: 08/25/19 18:00> Orders Ordered: ED Orders 08/25/19 13:15 Complete Blood Count AUTO DIFF Stat Comprehensive Metabolic Panel Stat Ethanol (ETOH) Stat Hepatic (Liver) Panel Stat Lipase Stat Magnesium Stat 08/25/19 13:20 Urinalysis and Microscopic Stat Urine Drug Screen, Rapid Stat 08/25/19 13:48 Consult to [facility] [place] - Contract Technician Stat Discontinued Medications Lorazepam (Ativan) 1 mg PO NOW ONE Stop: 08/25/19 14:25 Last Admin: 08/25/19 14:50 Dose: 1 mg Documented by: AINSLEY Nicotine (Nicoderm) 21 mg TOP NOW ONE Stop: 08/25/19 15:38 Last Admin: 08/25/19 16:25 Dose: Not Given Documented by: KALEIGH Vital Signs Vital signs: Vital Signs - 8 hr 08/25/19 12:53 08/25/19 15:00 Temperature 98.1 F Pulse Rate 96 H 73 Respiratory Rate 18 16 Blood Pressure 137/82 Blood Pressure [Right Arm] 126/58 L Pulse Oximetry 97 100 <Constance William DO - Last Filed: 08/25/19 19:02> Orders Ordered: ED Orders 08/25/19 13:15 Complete Blood Count AUTO DIFF Stat Comprehensive Metabolic Panel Stat Ethanol (ETOH) Stat Hepatic (Liver) Panel Stat Lipase Stat Magnesium Stat 08/25/19 13:20 Urinalysis and Microscopic Stat Urine Drug Screen, Rapid Stat 08/25/19 13:48 Consult to [facility] [place] - Contract Technician Stat Discontinued Medications Lorazepam (Ativan) 1 mg PO NOW ONE Stop: 08/25/19 14:25 Last Admin: 08/25/19 14:50 Dose: 1 mg Documented by: AINSLEY Nicotine (Nicoderm) 21 mg TOP NOW ONE Stop: 08/25/19 15:38 Last Admin: 08/25/19 16:25 Dose: Not Given Documented by: KALEIGH Vital Signs Vital signs: Vital Signs - 8 hr 08/25/19 12:53 08/25/19 15:00 Temperature 98.1 F Pulse Rate 96 H 73 Respiratory Rate 18 16 Blood Pressure 137/82 Blood Pressure [Right Arm] 126/58 L Pulse Oximetry 97 100 MDM - Alcohol <JAYMIE Arrington-BC - Last Filed: 08/25/19 18:00> Lab Data Result diagrams: 08/25/19 13:15 08/25/19 13:15 Labs: Lab Results 08/25/19 08/25/19 08/25/19 Range/Units 13:15 13:15 13:20 WBC 4.9 (4.5-11.0) X10^3/uL RBC 4.88 (4.5-5.9) X10^6/uL Hgb 16.9 (13.5-17.5) g/dL Hct 47.9 (41-53) % MCV 98.1 (80-100) fL MCH 34.5 H (26-34) PG MCHC 35.2 (30-36) % RDW 12.9 (11.6-14.8) % Plt Count 158 (150-400) X10^3/uL Neut % (Auto) 41.1 L (50-75) % Lymph % (Auto) 43.4 H (25-40) % [place] % (Auto) 12.2 (3-14) % Eos % (Auto) 2.0 (2-4) % Baso % (Auto) 1.3 (0-2) % Neut # (Auto) 2000 (5970-0467) /uL Lymph # (Auto) 2100 (3437-5954) /uL [place] # (Auto) 600 (0-900) /uL Eos # (Auto) 100 (0-450) /uL Baso # (Auto) 100 (0-100) /uL Sodium 148 H (137-145) mmol/L Potassium 4.6 (3.4-5.1) mmol/L Chloride 108 H (98-107) mmol/L Carbon Dioxide 33 H (22-32) mmol/L BUN 10 (9-20) mg/dL Creatinine 0.90 (0.66-1.25) mg/dL Estimated GFR > 60.0 (>60) mL/min BUN/Creatinine Ratio 11.1 (6-22) Glucose 111 H (70-100) mg/dL Calcium 8.8 (8.4-10.2) mg/dL Magnesium 2.6 H (1.6-2.3) mg/dL Total Bilirubin 0.5 (0.2-1.3) mg/dL Conjugated Bilirubin 0.0 (0.0-0.3) md/dL Unconjugated Bilirubin 0.3 (0.0-1.1) mg/dL AST 96 H (17-59) IU/L ALT 94 H (<50) IU/L Alkaline Phosphatase 77 (38-126) U/L Total Protein 7.7 (6.3-8.2) g/dL Albumin 4.7 (3.5-5.0) g/dL Globulin 3.0 (1.7-4.1) g/dL Albumin/Globulin Ratio 1.6 (1.0-2.8) Lipase 196 (23-300) U/L Urine Color Urine Appearance Urine pH (4.5-8.0) Ur Specific [place] (1.000-1.035) Urine Protein (Negative) Urine Glucose (UA) (Negative) g/dL Urine Ketones (NEGATIVE) Urine Occult Blood (Negative) Urine Nitrate (Negative) Urine Bilirubin (NEGATIVE) Urine Urobilinogen (0.2) E.U./dL Ur Leukocyte Esterase (NEGATIVE) Urine RBC (0-5/HPF) Urine WBC (0-5/HPF) Ur Squamous Epith Cells (0-5/HPF) Urine Bacteria (None) Ur Culture Indicated? U Opiates 300ng/mL cut Negative (Negative) Ur Oxycodone Screen Negative (Negative) Urine Methadone Screen Negative (Negative) Ur Barbiturates Screen Negative (Negative) U Tricyclic Antidepress Negative (Negative) Ur Phencyclidine Scrn Negative (Negative) Ur Amphetamines Screen Negative (Negative) U Methamphetamines Scrn Negative (Negative) Ur MDMA Scrn (Ecstasy) Negative (Negative) U Benzodiazepines Scrn Negative (Negative) Urine Cocaine Screen Negative (Negative) U Marijuana (THC) Screen Negative (Negative) Ethyl Alcohol 327 H ( - 10) mg/dL 08/25/19 Range/Units 13:20 WBC (4.5-11.0) X10^3/uL RBC (4.5-5.9) X10^6/uL Hgb (13.5-17.5) g/dL Hct (41-53) % MCV (80-100) fL MCH (26-34) PG MCHC (30-36) % RDW (11.6-14.8) % Plt Count (150-400) X10^3/uL Neut % (Auto) (50-75) % Lymph % (Auto) (25-40) % [place] % (Auto) (3-14) % Eos % (Auto) (2-4) % Baso % (Auto) (0-2) % Neut # (Auto) (6392-4172) /uL Lymph # (Auto) (8269-4474) /uL [place] # (Auto) (0-900) /uL Eos # (Auto) (0-450) /uL Baso # (Auto) (0-100) /uL Sodium (137-145) mmol/L Potassium (3.4-5.1) mmol/L Chloride (98-107) mmol/L Carbon Dioxide (22-32) mmol/L BUN (9-20) mg/dL Creatinine (0.66-1.25) mg/dL Estimated GFR (>60) mL/min BUN/Creatinine Ratio (6-22) Glucose (70-100) mg/dL Calcium (8.4-10.2) mg/dL Magnesium (1.6-2.3) mg/dL Total Bilirubin (0.2-1.3) mg/dL Conjugated Bilirubin (0.0-0.3) md/dL Unconjugated Bilirubin (0.0-1.1) mg/dL AST (17-59) IU/L ALT (<50) IU/L Alkaline Phosphatase (38-126) U/L Total Protein (6.3-8.2) g/dL Albumin (3.5-5.0) g/dL Globulin (1.7-4.1) g/dL Albumin/Globulin Ratio (1.0-2.8) Lipase (23-300) U/L Urine Color Yellow Urine Appearance Clear Urine pH 8.0 (4.5-8.0) Ur Specific [place] 1.020 (1.000-1.035) Urine Protein Negative (Negative) Urine Glucose (UA) Negative (Negative) g/dL Urine Ketones Negative (NEGATIVE) Urine Occult Blood Negative (Negative) Urine Nitrate Negative (Negative) Urine Bilirubin Negative (NEGATIVE) Urine Urobilinogen 0.2 (0.2) E.U./dL Ur Leukocyte Esterase Negative (NEGATIVE) Urine RBC None seen (0-5/HPF) Urine WBC 0-1/hpf (0-5/HPF) Ur Squamous Epith Cells 0-1 /hpf (0-5/HPF) Urine Bacteria None seen (None) Ur Culture Indicated? Cult not indicated U Opiates 300ng/mL cut (Negative) Ur Oxycodone Screen (Negative) Urine Methadone Screen (Negative) Ur Barbiturates Screen (Negative) U Tricyclic Antidepress (Negative) Ur Phencyclidine Scrn (Negative) Ur Amphetamines Screen (Negative) U Methamphetamines Scrn (Negative) Ur MDMA Scrn (Ecstasy) (Negative) U Benzodiazepines Scrn (Negative) Urine Cocaine Screen (Negative) U Marijuana (THC) Screen (Negative) Ethyl Alcohol ( - 10) mg/dL MDM Narrative Medical decision making narrative: The patient is a 24-year-old male who presents requesting alcohol detox. Initially he is too intoxicated to go to [facility]. I called them and they do have beds and availability. One the patient was waiting to decrease his alcohol in order to go to detox, he states that he does not want to go to detox anymore. He states he can be safe when he goes home. He states that he does not want to miss any more work and cannot go to detox right now. I discussed that I think he should but he does not want to stay. I discussed at length the age of follow-up with primary care provider. Discussed that he can call [facility] if needed. Discussed that he could come back to the emergency department for any acute concerns. Patient states he can be safe when he goes home, denies any thoughts of hurting himself or anybody else. Patient has no questions or concerns upon discharge and states understanding of return precautions as well as follow-up care. <Constance William, DO - Last Filed: 08/25/19 19:02> Lab Data Labs: Lab Results 08/25/19 08/25/19 08/25/19 Range/Units 13:15 13:15 13:20 WBC 4.9 (4.5-11.0) X10^3/uL RBC 4.88 (4.5-5.9) X10^6/uL Hgb 16.9 (13.5-17.5) g/dL Hct 47.9 (41-53) % MCV 98.1 (80-100) fL MCH 34.5 H (26-34) PG MCHC 35.2 (30-36) % RDW 12.9 (11.6-14.8) % Plt Count 158 (150-400) X10^3/uL Neut % (Auto) 41.1 L (50-75) % Lymph % (Auto) 43.4 H (25-40) % [place] % (Auto) 12.2 (3-14) % Eos % (Auto) 2.0 (2-4) % Baso % (Auto) 1.3 (0-2) % Neut # (Auto) 2000 (9050-6773) /uL Lymph # (Auto) 2100 (5975-8792) /uL [place] # (Auto) 600 (0-900) /uL Eos # (Auto) 100 (0-450) /uL Baso # (Auto) 100 (0-100) /uL Sodium 148 H (137-145) mmol/L Potassium 4.6 (3.4-5.1) mmol/L Chloride 108 H (98-107) mmol/L Carbon Dioxide 33 H (22-32) mmol/L BUN 10 (9-20) mg/dL Creatinine 0.90 (0.66-1.25) mg/dL Estimated GFR > 60.0 (>60) mL/min BUN/Creatinine Ratio 11.1 (6-22) Glucose 111 H (70-100) mg/dL Calcium 8.8 (8.4-10.2) mg/dL Magnesium 2.6 H (1.6-2.3) mg/dL Total Bilirubin 0.5 (0.2-1.3) mg/dL Conjugated Bilirubin 0.0 (0.0-0.3) md/dL Unconjugated Bilirubin 0.3 (0.0-1.1) mg/dL AST 96 H (17-59) IU/L ALT 94 H (<50) IU/L Alkaline Phosphatase 77 (38-126) U/L Total Protein 7.7 (6.3-8.2) g/dL Albumin 4.7 (3.5-5.0) g/dL Globulin 3.0 (1.7-4.1) g/dL Albumin/Globulin Ratio 1.6 (1.0-2.8) Lipase 196 (23-300) U/L Urine Color Urine Appearance Urine pH (4.5-8.0) Ur Specific [place] (1.000-1.035) Urine Protein (Negative) Urine Glucose (UA) (Negative) g/dL Urine Ketones (NEGATIVE) Urine Occult Blood (Negative) Urine Nitrate (Negative) Urine Bilirubin (NEGATIVE) Urine Urobilinogen (0.2) E.U./dL Ur Leukocyte Esterase (NEGATIVE) Urine RBC (0-5/HPF) Urine WBC (0-5/HPF) Ur Squamous Epith Cells (0-5/HPF) Urine Bacteria (None) Ur Culture Indicated? U Opiates 300ng/mL cut Negative (Negative) Ur Oxycodone Screen Negative (Negative) Urine Methadone Screen Negative (Negative) Ur Barbiturates Screen Negative (Negative) U Tricyclic Antidepress Negative (Negative) Ur Phencyclidine Scrn Negative (Negative) Ur Amphetamines Screen Negative (Negative) U Methamphetamines Scrn Negative (Negative) Ur MDMA Scrn (Ecstasy) Negative (Negative) U Benzodiazepines Scrn Negative (Negative) Urine Cocaine Screen Negative (Negative) U Marijuana (THC) Screen Negative (Negative) Ethyl Alcohol 327 H ( - 10) mg/dL 08/25/19 Range/Units 13:20 WBC (4.5-11.0) X10^3/uL RBC (4.5-5.9) X10^6/uL Hgb (13.5-17.5) g/dL Hct (41-53) % MCV (80-100) fL MCH (26-34) PG MCHC (30-36) % RDW (11.6-14.8) % Plt Count (150-400) X10^3/uL Neut % (Auto) (50-75) % Lymph % (Auto) (25-40) % [place] % (Auto) (3-14) % Eos % (Auto) (2-4) % Baso % (Auto) (0-2) % Neut # (Auto) (3167-4878) /uL Lymph # (Auto) (3909-4799) /uL [place] # (Auto) (0-900) /uL Eos # (Auto) (0-450) /uL Baso # (Auto) (0-100) /uL Sodium (137-145) mmol/L Potassium (3.4-5.1) mmol/L Chloride (98-107) mmol/L Carbon Dioxide (22-32) mmol/L BUN (9-20) mg/dL Creatinine (0.66-1.25) mg/dL Estimated GFR (>60) mL/min BUN/Creatinine Ratio (6-22) Glucose (70-100) mg/dL Calcium (8.4-10.2) mg/dL Magnesium (1.6-2.3) mg/dL Total Bilirubin (0.2-1.3) mg/dL Conjugated Bilirubin (0.0-0.3) md/dL Unconjugated Bilirubin (0.0-1.1) mg/dL AST (17-59) IU/L ALT (<50) IU/L Alkaline Phosphatase (38-126) U/L Total Protein (6.3-8.2) g/dL Albumin (3.5-5.0) g/dL Globulin (1.7-4.1) g/dL Albumin/Globulin Ratio (1.0-2.8) Lipase (23-300) U/L Urine Color Yellow Urine Appearance Clear Urine pH 8.0 (4.5-8.0) Ur Specific [place] 1.020 (1.000-1.035) Urine Protein Negative (Negative) Urine Glucose (UA) Negative (Negative) g/dL Urine Ketones Negative (NEGATIVE) Urine Occult Blood Negative (Negative) Urine Nitrate Negative (Negative) Urine Bilirubin Negative (NEGATIVE) Urine Urobilinogen 0.2 (0.2) E.U./dL Ur Leukocyte Esterase Negative (NEGATIVE) Urine RBC None seen (0-5/HPF) Urine WBC 0-1/hpf (0-5/HPF) Ur Squamous Epith Cells 0-1 /hpf (0-5/HPF) Urine Bacteria None seen (None) Ur Culture Indicated? Cult not indicated U Opiates 300ng/mL cut (Negative) Ur Oxycodone Screen (Negative) Urine Methadone Screen (Negative) Ur Barbiturates Screen (Negative) U Tricyclic Antidepress (Negative) Ur Phencyclidine Scrn (Negative) Ur Amphetamines Screen (Negative) U Methamphetamines Scrn (Negative) Ur MDMA Scrn (Ecstasy) (Negative) U Benzodiazepines Scrn (Negative) Urine Cocaine Screen (Negative) U Marijuana (THC) Screen (Negative) Ethyl Alcohol ( - 10) mg/dL Discharge Plan Departure Patient Disposition: Home Clinical Impression: Alcohol abuse Discharge Date/Time: 08/25/19 16:25 Instructions: DI for Alcohol Abuse, DI for Drug Abuse and Drug Addiction, DI for Alcohol Poisoning Activity Restrictions/Additional Instructions: You have elected to leave without going to detox today. You can call Sara Corona when you are ready to discuss detox. Please come back to the emergency department for any acute concerns such as thoughts and plans of hurting herself or anybody else, acute alcohol intoxication etcetera Please follow-up with primary care provider Prescriptions: No Action No Known Home Medications RF: 0 Referrals: Tea Flores ARNP [Primary Care Provider] -
== END 2019-08-25 16:25 | disposition home or self-care (01) ==
PROVIDERS: Emergency Provider Nurse Practitioner Family; PCP Nurse Practitioner Family
DX: F10.239 Alcohol dependence with withdrawal, unspecified (principal)
CPT/HCPCS: 36415; 80053; 80076; 80305; 80320; 81001; 83690; 83735; 85025; 99282; 99283

== ENCOUNTER 2019-08-28 08:39 | Emergency (ER) | payer OTHER, MEDICAID, SELFPAY ==
[2019-08-28 08:53] VITALS: BP 143/80; PULSE 87; RESP 16; TEMP 37.3; O2SAT 99
[2019-08-28 08:57] VITALS: BP 143/80; PULSE 87; RESP 16; TEMP 37.3; O2SAT 99; BMI 21.6
--- NOTE | 2019-08-28 09:24 | ED_ITS ---
HPI - Alcohol General Chief Complaint: Toxicology Problem Stated Complaint: alcohol withdrawls Time Seen by Provider: 08/28/19 08:43 Source: patient Mode of arrival: Ambulatory Limitations: no limitations History of Present Illness HPI narrative: Patient comes emergency department complaining of alcohol withdrawal and wanted to go to detox. The patient states he did some drinking last night and that his last drink was around 4th o'clock this morning. He states that he did not drink much overnight and drink mostly yesterday. He denies any vomiting though he has been a little nauseated. Patient states that he feels as if he is starting to get shaky. The patient has been here many times in the recent past few months for similar symptoms. He generally has asked to go to detox, although he has not consistently followed through with the plan. The patient's most recent detox admission ended a few days ago. He states he has not been ill with anything recently. No fever, chills, shortness breath or cough. No other complaints at this time. Related Data Home Medications Medication Instructions Recorded Confirmed No Known Home Medications 08/28/19 08/28/19 Allergies Allergy/AdvReac Type Severity Reaction Status Date / Time No Known Drug Allergies Allergy Verified 08/28/19 08:57 Review of Systems Constitutional Constitutional: Denies chills, Denies fatigue, Denies fever(s), Denies frequent falls, Denies lethargy and Denies weakness Eyes Eyes: Denies change in vision, Denies eye discharge, Denies irritation and Denies loss of vision ENT Ears, Nose, Mouth, and Throat: Denies change in voice, Denies dizziness, Denies neck pain, Denies sore throat and Denies throat swelling Cardiovascular Cardiovascular: Denies chest pain, Denies irregular heart rhythm, Denies lightheadedness, Denies palpitations, Denies dyspnea, Denies dyspnea on exertion and Denies orthopnea Respiratory Respiratory: Denies cough, Denies dyspnea, Denies dyspnea on exertion and Denies wheezing Gastrointestinal Gastrointestinal: Denies abdominal pain, Denies change in bowel habits, Denies diarrhea, Reports nausea and Denies vomiting Genitourinary Genitourinary: Denies hematuria, Denies flank pain, Denies urinary incontinence and Denies urinary urgency Musculoskeletal Musculoskeletal: Denies back pain, Denies muscle weakness, Denies neck pain, Denies numbness and Denies tingling Integumentary/Breasts Skin/Breast: Denies pruritus, Denies erythema, Denies rash and Denies wounds Neurologic Neurologic: Denies behavioral changes, Denies confusion, Denies dizziness, Denies frequent falls, Denies loss of vision, Denies numbness, Denies tingling and Denies weakness Comments: Tremors Psychiatric Psychiatric: Denies anxiety, Denies behavioral changes, Denies confusion, Denies depression, Denies homicidal ideation and Denies suicidal ideation Endocrine Endocrine: Denies fatigue, Denies flushing and Denies palpitations Hematologic/Lymphatic Hematologic/Lymphatic: Denies easy bruising Allergic/Immunologic Allergic/Immunologic: Denies urticaria, Denies throat swelling and Denies wheezi ng Patient History Medical History Alcohol abuse (Acute) Cervical radiculopathy (Inactive) Elevated transaminase level (Inactive) Hypokalemia (Inactive) Neck pain on right side (Inactive) Surgical History No history of previous surgery (Chronic) Family History Father Age: 53 Diabetes mellitus Hypertension Social History Smoking Status: Current every day smoker substance use type: marijuana additional social history: Previous heavy EtOH use, occasional THC Smoking Status: Current every day smoker tobacco type: cigarettes alcohol intake frequency: 3 or more drinks per day Alcohol type: beer and hard liquor Substance Use Type: crack/cocaine and painkillers Exam Initial Vital Signs Initial Vital Signs: Vital Signs Temperature 99.1 F 08/28/19 08:53 Pulse Rate 87 08/28/19 08:53 Respiratory Rate 16 08/28/19 08:53 Blood Pressure 143/80 H 08/28/19 08:53 Pulse Oximetry 99 08/28/19 08:53 Const General: cooperative and well developed Nutritional Appearance: well nourished Orientation: alert, awake, oriented x3 and not confused [facility] Head: normocephalic and atraumatic Ears: external ears normal Nose: external nose normal and No nasal discharge Face and sinus: face symmetric and No dry mucous membranes Mouth: oral mucosae normal and moist mucous membranes Teeth and gingiva: dentition normal Eyes General: appearance normal, both eyes and all related structures Eyelids: eyelids normal Conjunctivae: conjunctivae normal Sclera: sclerae normal Pupils: PERRL EOM: EOM intact bilaterally Neck Neck: normal visual inspection, trachea midline, No lymphadenopathy, No midline deformity and No JVD Lymphatic: No lymphedema Chest Chest: normal inspection of the chest Resp Effort & Inspection: normal respiratory effort, able to speak in complete sentences, no respiratory distress and no use of accessory muscles Auscultation: clear to auscultation bilaterally, no rales, no rhonchi and no wheezes Cardio Rate: regular rate Rhythm: regular rhythm Heart Sounds: no click, no gallops, no murmurs and no rubs Pulses: normal peripheral pulses GI Inspection: non-distended Palpation: soft, no hepatosplenomegaly, No guarding, No pulsatile mass and No tender Auscultation: normal bowel sounds Back/Spine/Pelvis Back: No CVA tenderness Cervical Spine: cervical ROM normal and No pain with cervical ROM Thoracic/Lumbar Spine: thoracic and lumbar spine normal to inspection Skin General: no rashes or lesions noted, No jaundice and No petechiae Neuro General: alert, oriented x3, gait normal and no focal motor deficits Speech: speech normal Extrem General: full ROM, no clubbing, cyanosis or edema, no pedal edema and no calf tenderness Psych Appearance: well kempt Mental Status: mental status grossly normal Attitude: cooperative Thought Content: normal and suicidality Judgment: judgment good Course Course Course Narrative: The patient was treated symptomatically with p.o. Ativan in the emergency department after his alcohol level came back at 35. We did arrange for the patient to go to scheduled detox on [facility] again, but before the patient could be sent, he decided he did not want to go to detox after all. The patient was stable in showing no signs of withdrawal at this time. We've discussed home management of the symptoms, as well as the usual indications for return. Orders Ordered: Discontinued Medications Lorazepam (Ativan) 2 mg PO NOW ONE Stop: 08/28/19 12:12 Last Admin: 08/28/19 12:21 Dose: 2 mg Documented by: SCANAPO Vital Signs Vital signs: Vital Signs - 8 hr 08/28/19 08:53 08/28/19 08:57 Temperature 99.1 F 99.1 F Pulse Rate 87 87 Respiratory Rate 16 16 Blood Pressure 143/80 H Blood Pressure [Left Arm] 143/80 H Pulse Oximetry 99 99 MDM - Alcohol Medical Records Attestation: I reviewed the patient's medical records. Lab Data Attestation: I reviewed the patient's lab results. Result diagrams: 08/28/19 07:45 08/28/19 07:45 Labs: Lab Results 08/28/19 08/28/19 08/28/19 Range/Units 07:45 07:45 07:45 WBC 7.3 (4.5-11.0) X10^3/uL RBC 4.83 (4.5-5.9) X10^6/uL Hgb 16.8 (13.5-17.5) g/dL Hct 46.7 (41-53) % MCV 96.8 (80-100) fL MCH 34.7 H (26-34) PG MCHC 35.9 (30-36) % RDW 13.1 (11.6-14.8) % Plt Count 161 (150-400) X10^3/uL Sodium 138 D (137-145) mmol/L Potassium 4.2 (3.4-5.1) mmol/L Chloride 101 (98-107) mmol/L Carbon Dioxide 23 (22-32) mmol/L BUN 15 (9-20) mg/dL Creatinine 0.70 (0.66-1.25) mg/dL Estimated GFR > 60.0 (>60) mL/min BUN/Creatinine Ratio 21.4 (6-22) Glucose 88 (70-100) mg/dL Calcium 9.5 (8.4-10.2) mg/dL Total Bilirubin 1.1 (0.2-1.3) mg/dL AST 80 H (17-59) IU/L ALT 74 H (<50) IU/L Alkaline Phosphatase 94 (38-126) U/L Total Protein 7.7 (6.3-8.2) g/dL Albumin 4.9 (3.5-5.0) g/dL Globulin 2.8 (1.7-4.1) g/dL Albumin/Globulin Ratio 1.8 (1.0-2.8) Salicylates < 1.0 (<20) mg/dL U Opiates 300ng/mL cut (Negative) Ur Oxycodone Screen (Negative) Urine Methadone Screen (Negative) Acetaminophen < 10 L (10-30) ug/mL Ur Barbiturates Screen (Negative) U Tricyclic Antidepress (Negative) Ur Phencyclidine Scrn (Negative) Ur Amphetamines Screen (Negative) U Methamphetamines Scrn (Negative) Ur MDMA Scrn (Ecstasy) (Negative) U Benzodiazepines Scrn (Negative) Urine Cocaine Screen (Negative) U Marijuana (THC) Screen (Negative) Ethyl Alcohol ( - 10) mg/dL 08/28/19 08/28/19 Range/Units 09:45 12:20 WBC (4.5-11.0) X10^3/uL RBC (4.5-5.9) X10^6/uL Hgb (13.5-17.5) g/dL Hct (41-53) % MCV (80-100) fL MCH (26-34) PG MCHC (30-36) % RDW (11.6-14.8) % Plt Count (150-400) X10^3/uL Sodium (137-145) mmol/L Potassium (3.4-5.1) mmol/L Chloride (98-107) mmol/L Carbon Dioxide (22-32) mmol/L BUN (9-20) mg/dL Creatinine (0.66-1.25) mg/dL Estimated GFR (>60) mL/min BUN/Creatinine Ratio (6-22) Glucose (70-100) mg/dL Calcium (8.4-10.2) mg/dL Total Bilirubin (0.2-1.3) mg/dL AST (17-59) IU/L ALT (<50) IU/L Alkaline Phosphatase (38-126) U/L Total Protein (6.3-8.2) g/dL Albumin (3.5-5.0) g/dL Globulin (1.7-4.1) g/dL Albumin/Globulin Ratio (1.0-2.8) Salicylates (<20) mg/dL U Opiates 300ng/mL cut Negative (Negative) Ur Oxycodone Screen Negative (Negative) Urine Methadone Screen Negative (Negative) Acetaminophen (10-30) ug/mL Ur Barbiturates Screen Negative (Negative) U Tricyclic Antidepress Negative (Negative) Ur Phencyclidine Scrn Negative (Negative) Ur Amphetamines Screen Negative (Negative) U Methamphetamines Scrn Negative (Negative) Ur MDMA Scrn (Ecstasy) Negative (Negative) U Benzodiazepines Scrn Negative (Negative) Urine Cocaine Screen Negative (Negative) U Marijuana (THC) Screen Negative (Negative) Ethyl Alcohol 35 H ( - 10) mg/dL Discharge Plan Departure Patient Disposition: Home Clinical Impression: Alcohol abuse Alcohol withdrawal Qualifiers: Complication of substance-induced condition: uncomplicated Qualified Code(s): F10.230 - Alcohol dependence with withdrawal, uncomplicated Discharge Date/Time: 08/28/19 14:05 Instructions: DI for Alcohol Abuse Prescriptions: No Action No Known Home Medications RF: 0 Referrals: Tea Flores ARNP [Primary Care Provider] -
[2019-08-28 10:09] LABS: Ethanol (ETOH) 35 mg/dL
[2019-08-28 11:55] LABS: Hematocrit 46.7 % (41-53); Hemoglobin 16.8 g/dL (13.5-17.5); Mean Corpuscular HGB Conc 35.9 % (30-36); Mean Corpuscular Hemoglobin 34.7 PG (26-34); Mean Corpuscular Volume 96.8 fL (80-100); Platelet Count 161 X10^3/uL (150-400); Red Blood Cell Count 4.83 X10^6/uL (4.5-5.9); Red Cell Distribution Width 13.1 % (11.6-14.8); White Blood Cell Count 7.3 X10^3/uL (4.5-11.0)
[2019-08-28 12:02] LABS: Alanine Aminotransferase 74 IU/L (<50); Albumin 4.9 g/dL (3.5-5.0); Albumin Globulin Ratio 1.8 (1.0-2.8); Alkaline Phosphatase 94 U/L (38-126); Aspartate Aminotransferase 80 IU/L (17-59); BUN Creatinine Ratio 21.4 (6-22); Bilirubin Total 1.1 mg/dL (0.2-1.3); Blood Urea Nitrogen 15 mg/dL (9-20); Calcium 9.5 mg/dL (8.4-10.2); Carbon Dioxide 23 mmol/L (22-32); Chloride 101 mmol/L (98-107); Estimated Glomerular Filt Rate > 60.0 mL/min (>60); Globulin 2.8 g/dL (1.7-4.1); Glucose 88 mg/dL (70-100); HEMOLYSIS 20 (0-50); Potassium 4.2 mmol/L (3.4-5.1); Salicylate < 1.0 mg/dL (<20); Sodium 138 mmol/L (137-145); Total Protein 7.7 g/dL (6.3-8.2)
[2019-08-28 12:03] LABS: Acetaminophen < 10 ug/mL (10-30)
[2019-08-28] MEDS: LORazepam 0.5 MG TABLET 2 MG PO (12:21)
[2019-08-28 13:00] LABS: UR Morphine/Opiate cutoff 300 Negative (Negative); Ur Creatinine Normal (Normal); Ur Specific Gravity Normal (Normal); Urine Amphetamines Negative (Negative); Urine Barbiturates Negative (Negative); Urine Benzodiazepines Negative (Negative); Urine Cocaine Negative (Negative); Urine MDMA Negative (Negative); Urine Methadone Negative (Negative); Urine Methamphetamines Negative (Negative); Urine Oxycodone Negative (Negative); Urine Phencyclidine Negative (Negative); Urine Tetrahydrocannabinol Negative (Negative); Urine Tricyclic Antidepressant Negative (Negative); Urine pH Normal (Normal)
[2019-08-28 13:52] VITALS: BP 150/64; PULSE 83; RESP 18; O2SAT 99
== END 2019-08-28 14:05 | disposition home or self-care (01) ==
PROVIDERS: Emergency Provider Emergency Medicine; PCP Nurse Practitioner Family
DX: F10.239 Alcohol dependence with withdrawal, unspecified (principal)
CPT/HCPCS: 36415; 80053; 80305; 80320; 80329; 85027; 99283; G0480

== ENCOUNTER 2020-02-22 13:42 | Emergency (ER) | payer OTHER, MEDICAID, SELFPAY ==
[2020-02-22] VITALS (8 sets, daily range): BP systolic 131–157; BP diastolic 73–93; PULSE 64–86; RESP 14–23; TEMP 35.9; O2SAT 97–99; BMI 25.1
--- NOTE | 2020-02-22 14:11 | ED_ITS ---
HPI - Alcohol General Chief Complaint: Toxicology Problem Stated Complaint: ETOH withdrawls Time Seen by Provider: 02/22/20 13:45 Source: patient Mode of arrival: Ambulatory Limitations: no limitations History of Present Illness HPI narrative: Patient is a 24-year-old male who has a history of alcohol abuse. He states he was sober for number of months however he started drinking again he typically drinks about 12 pack of beer and few shots. He decided that he needed to quit so that he would not lose his son. He thinks he had a seizure 2 days ago. He had 1 previously in rehab he was very confused he bit his tongue however he was not evaluated at that time. Yesterday he again drinks 12 beers and today he drank 6 beers and 2 shots to help with this shaking. He currently does not want treatment he just wants something to help with the shakes he is going to get set up with AA. MD complaint: alcohol dependence Related Data Home Medications Medication Instructions Recorded Confirmed No Known Home Medications 08/28/19 08/28/19 Allergies Allergy/AdvReac Type Severity Reaction Status Date / Time No Known Drug Allergies Allergy Verified 02/22/20 13:48 Review of Systems Review of Systems Narrative: GENERAL: Denies chills, fatigue, malaise, fever, sweats, travel HEENT: Denies sinus pain, ear pain, sore throat, difficulty swallowing, neck pain RESPIRATORY: Denies dyspnea, cough, wheezing, hemoptysis, sputum. CARDIOVASCULAR: Denies chest pain, palpitations, orthopnea, edema GASTROINTESTINAL: Denies nausea, vomiting, abdominal pain, diarrhea, constipation, melena. : Denies dysuria, frequency, incontinence, hematuria, urinary retention, flank pain. MUSCULOSKELETAL: Denies weakness, joint pain, or bony pain SKIN: No rash, no erythema, no pruritus NEUROLOGIC: Denies weakness, dizziness, headache, numbness, change in speech, confusion PSYCHIATRIC: See HPI 12 point review of systems is negative except for those stated above and HPI Patient History Medical History Alcohol abuse (Acute) Cervical radiculopathy (Inactive) Elevated transaminase level (Inactive) Hypokalemia (Inactive) Neck pain on right side (Inactive) Surgical History No history of previous surgery (Chronic) Family History Father Age: 53 Diabetes mellitus Hypertension Social History Smoking Status: Current every day smoker substance use type: marijuana additional social history: Previous heavy EtOH use, occasional THC Smoking Status: Current every day smoker tobacco type: cigarettes alcohol intake frequency: 3 or more drinks per day Alcohol type: beer and hard liquor Substance Use Type: marijuana and painkillers Exam Initial Vital Signs Initial Vital Signs: Vital Signs Temperature 96.6 F L 02/22/20 13:43 Pulse Rate 86 02/22/20 13:43 Respiratory Rate 14 02/22/20 13:43 Blood Pressure 152/93 H 02/22/20 13:43 Pulse Oximetry 97 02/22/20 13:43 GENERAL: Well-appearing, well-nourished and in no acute distress. HEENT: Head atraumatic,EOMI, pupils reactive, face symmetric, moist mucous membranes CARDIOVASCULAR: Regular rate and rhythm without murmurs, rubs or gallops. RESPIRATORY: Breath sounds equal bilaterally, no wheezes rales or rhonchi. ABDOMEN: Soft, nontender. Normoactive bowel sounds all 4 quadrants. No guarding or rebound. EXTREMITIES: Normal range of motion, no clubbing or edema. Neurovascularly intact NEUROLOGICAL: Alert and oriented x4.Normal gait and speech. No tremor SKIN: Warm, dry, no laceration, no petechiae, no rashes or lesions. Course Orders Ordered: ED Orders 02/22/20 13:52 Complete Blood Count AUTO DIFF Stat Comprehensive Metabolic Panel Stat Ethanol (ETOH) Stat Hepatic (Liver) Panel Stat Lipase Stat Magnesium Stat 02/22/20 14:09 EKG-12 Lead Routine 02/22/20 14:27 Consult to [employer]DRA[employer]LE [employer] OPERATOR - Utilization Supervisor Stat 02/22/20 14:54 Urine Drug Screen, Rapid Stat Discontinued Medications Sodium Chloride (Normal Saline 0.9%) 1,000 mls @ 1,000 mls/hr IV BOLUS ONE Stop: 02/22/20 15:26 Last Infusion: 02/22/20 15:40 Dose: 0 mls/hr Documented by: Admin: 02/22/20 14:35 Dose: 1,000 mls/hr Documented by: REDD Phenobarbital (Phenobarbital) 130 mg IV NOW ONE Stop: 02/22/20 14:28 Last Admin: 02/22/20 14:35 Dose: 130 mg Documented by: REDD Vital Signs Vital signs: Vital Signs - 8 hr 02/22/20 13:43 02/22/20 14:00 02/22/20 14:01 Temperature 96.6 F L Pulse Rate 86 71 Respiratory Rate 14 Blood Pressure 152/93 H 137/81 Pulse Oximetry 97 97 02/22/20 14:30 02/22/20 14:31 02/22/20 15:00 Temperature Pulse Rate 69 64 Respiratory Rate 19 Blood Pressure 157/73 H 131/79 Pulse Oximetry 97 98 02/22/20 15:30 02/22/20 16:00 Temperature Pulse Rate 68 74 Respiratory Rate 23 18 Blood Pressure 132/85 Pulse Oximetry 98 99 MDM - Alcohol Lab Data Attestation: I reviewed the patient's lab results. Result diagrams: 02/22/20 13:52 02/22/20 13:52 Labs: Lab Results 02/22/20 02/22/20 02/22/20 Range/Units 13:52 13:52 14:54 WBC 5.7 (4.5-11.0) X10^3/uL RBC 4.82 (4.5-5.9) X10^6/uL Hgb 17.6 H (13.5-17.5) g/dL Hct 48.6 (41-53) % MCV 100.9 H (80-100) fL MCH 36.4 H (26-34) PG MCHC 36.1 H (30-36) % RDW 12.5 (11.6-14.8) % Plt Count 123 L (150-400) X10^3/uL Neut % (Auto) 63.3 (50-75) % Lymph % (Auto) 19.8 L (25-40) % [place] % (Auto) 14.2 H (3-14) % Eos % (Auto) 1.7 L (2-4) % Baso % (Auto) 1.0 (0-2) % Neut # (Auto) 3600 (2436-6643) /uL Lymph # (Auto) 1100 (2070-3480) /uL [place] # (Auto) 800 (0-900) /uL Eos # (Auto) 100 (0-450) /uL Baso # (Auto) 100 (0-100) /uL Sodium 136 L (137-145) mmol/L Potassium 4.0 (3.4-5.1) mmol/L Chloride 102 (98-107) mmol/L Carbon Dioxide 22 (22-32) mmol/L BUN 8 L (9-20) mg/dL Creatinine 0.78 (0.66-1.25) mg/dL Estimated GFR > 60.0 (>60) mL/min BUN/Creatinine Ratio 10.3 (6-22) Glucose 105 H (70-100) mg/dL Calcium 9.8 (8.4-10.2) mg/dL Magnesium 2.4 H (1.6-2.3) mg/dL Total Bilirubin 0.9 (0.2-1.3) mg/dL Conjugated Bilirubin 0.0 (0.0-0.3) md/dL Unconjugated Bilirubin 0.7 (0.0-1.1) mg/dL AST 554 H (17-59) IU/L ALT 350 H (<50) IU/L Alkaline Phosphatase 98 (38-126) U/L Total Protein 8.3 H (6.3-8.2) g/dL Albumin 5.0 (3.5-5.0) g/dL Globulin 3.3 (1.7-4.1) g/dL Albumin/Globulin Ratio 1.5 (1.0-2.8) Lipase 314 H (23-300) U/L U Opiates 300ng/mL cut Negative (Negative) Ur Oxycodone Screen Negative (Negative) Urine Methadone Screen Negative (Negative) Ur Barbiturates Screen Negative (Negative) U Tricyclic Antidepress Negative (Negative) Ur Phencyclidine Scrn Negative (Negative) Ur Amphetamines Screen Negative (Negative) U Methamphetamines Scrn Negative (Negative) Ur MDMA Scrn (Ecstasy) Negative (Negative) U Benzodiazepines Scrn Negative (Negative) Urine Cocaine Screen Negative (Negative) U Marijuana (THC) Screen Positive H (Negative) Ethyl Alcohol 267 H ( - 10) mg/dL Urine Dip Bedside Urine Glucose Negative Bedside Urine Bilirubin - Negative Bedside Urine Ketone - Negative Urine Specific [place] 1.005 Bedside Urine Occult Blood - Negative Bedside Urine pH 6.5 Bedside Urine Protein - Negative Bedside Urine Urobilinogen - Negative Bedside Urine Nitrite - Negative Bedside Urine Leukocytes - Negative Esterase MDM Narrative Medical decision making narrative: Patient is which better after phenobarbital. He is not currently looking for treatment. He has a ride home. He is not given a prescription for Ativan. Discharge Plan Departure Patient Disposition: Home Clinical Impression: Alcohol withdrawal syndrome Qualifiers: Complication of substance-induced condition: uncomplicated Qualified Code(s): F10.230 - Alcohol dependence with withdrawal, uncomplicated Discharge Date/Time: 02/22/20 16:48 Instructions: DI for Alcohol Abuse Activity Restrictions/Additional Instructions: *You have been diagnosed with alcohol abuse *What to do: Recommend that he go to AA on a regular basis *Continue to take medications as directed *Follow up with your primary care provider in 2-3 days *Return to ER if you should have tremor, seizures or any new, worsening or concerning symptoms Prescriptions: No Action No Known Home Medications RF: 0 Referrals: Dave Mcleod MD [Primary Care Provider] -
[2020-02-22] MEDS: PHENobarbital 65 MG/ML VIAL 130 MG IV (14:35)
[2020-02-22] MEDS: SODIUM CHLORIDE 0.9% 1,000 ML 1000 ML IV (14:35)
[2020-02-22 14:42] LABS: Add Manual Diff / Slide Review NO; Basophils Absolute Auto 100 /uL (0-100); Eosinophils Absolute Auto 100 /uL (0-450); Eosinophils Percent Auto 1.7 % (2-4); Hematocrit 48.6 % (41-53); Hemoglobin 17.6 g/dL (13.5-17.5); Lymphocytes Absolute Auto 1100 /uL (1100-4500); Lymphocytes Percent Auto 19.8 % (25-40); Mean Corpuscular HGB Conc 36.1 % (30-36); Mean Corpuscular Hemoglobin 36.4 PG (26-34); Mean Corpuscular Volume 100.9 fL (80-100); Monocytes Absolute Auto 800 /uL (0-900); Monocytes Percent Auto 14.2 % (3-14); Neutrophils Absolute Auto 3600 /uL (1500-7000); Neutrophils Percent Auto 63.3 % (50-75); Platelet Count 123 X10^3/uL (150-400); Red Blood Cell Count 4.82 X10^6/uL (4.5-5.9); Red Cell Distribution Width 12.5 % (11.6-14.8); White Blood Cell Count 5.7 X10^3/uL (4.5-11.0)
[2020-02-22 15:07] LABS: Alanine Aminotransferase 350 IU/L (<50); Albumin Globulin Ratio 1.5 (1.0-2.8); Alkaline Phosphatase 98 U/L (38-126); Aspartate Aminotransferase 554 IU/L (17-59); BUN Creatinine Ratio 10.3 (6-22); Bilirubin Total 0.9 mg/dL (0.2-1.3); Blood Urea Nitrogen 8 mg/dL (9-20); Calcium 9.8 mg/dL (8.4-10.2); Carbon Dioxide 22 mmol/L (22-32); Chloride 102 mmol/L (98-107); Estimated Glomerular Filt Rate > 60.0 mL/min (>60); Globulin 3.3 g/dL (1.7-4.1); Glucose 105 mg/dL (70-100); HEMOLYSIS 18 (0-50); Magnesium 2.4 mg/dL (1.6-2.3); Sodium 136 mmol/L (137-145); Total Protein 8.3 g/dL (6.3-8.2)
[2020-02-22 15:26] LABS: Bilirubin Unconjugated 0.7 mg/dL (0.0-1.1); Lipase 314 U/L (23-300)
[2020-02-22 15:51] LABS: UR Morphine/Opiate cutoff 300 Negative (Negative); Ur Creatinine Normal (Normal); Ur Specific Gravity Normal (Normal); Urine Amphetamines Negative (Negative); Urine Barbiturates Negative (Negative); Urine Benzodiazepines Negative (Negative); Urine Cocaine Negative (Negative); Urine MDMA Negative (Negative); Urine Methadone Negative (Negative); Urine Methamphetamines Negative (Negative); Urine Oxycodone Negative (Negative); Urine Phencyclidine Negative (Negative); Urine Tetrahydrocannabinol Positive (Negative); Urine Tricyclic Antidepressant Negative (Negative); Urine pH Normal (Normal)
[2020-02-22 15:59] LABS: Ethanol (ETOH) 267 mg/dL
== END 2020-02-22 16:48 | disposition home or self-care (01) ==
PROVIDERS: Emergency Provider Emergency Medicine; PCP Internal Medicine
DX: F10.230 Alcohol dependence with withdrawal, uncomplicated (principal)
CPT/HCPCS: 36415; 80053; 80076; 80305; 80320; 81003; 83690; 83735; 85025; 93005; 96361; 96374; 99284; J2560

== ENCOUNTER 2020-03-16 22:57 | Emergency (ER) | payer OTHER, MEDICAID, SELFPAY ==
--- NOTE | 2020-03-16 23:09 | ED.GENADULT ---
HPI - General Adult General Chief complaint: Toxicology Problem Stated complaint: ETOH withdrawls Time Seen by Provider: 03/16/20 23:05 Source: patient Mode of arrival: Ambulatory Limitations: no limitations History of Present Illness HPI narrative: Patient is a 24-year-old male. Admits to being an alcoholic. States that he has had an alcohol problem for many years now. He states over the past 2 weeks the alcohol has increased to 18 beers a day with hard alcohol in addition to this if it was available. He states that he has no particular reason why he started increase his alcohol intake in the past 2 weeks. He has withdrawn from alcohol in the past. Has been through detox in the past. He states that his last drink was this afternoon approximately 6 hours prior to arrival here in the ER. He states that he has had 5 beers today. He came in because he would like help with alcohol withdrawal. Denies any other drug use. States that he does smoke marijuana and did so earlier this afternoon however denies any other drug use. Denies any other medical problems. Related Data Previous Rx's Medication Instructions Recorded lorazepam [Ativan] 1 mg PO DAILY PRN #20 tab 03/17/20 Allergies Allergy/AdvReac Type Severity Reaction Status Date / Time No Known Drug Allergies Allergy Verified 02/22/20 13:48 Review of Systems Constitutional Constitutional: Denies fever(s) and Denies headache(s) Eyes Eyes: Denies change in vision ENT Ears, Nose, Mouth, and Throat: Denies headache(s) and Denies sinus pain Cardiovascular Cardiovascular: Denies chest pain and Denies dyspnea Respiratory Respiratory: Denies dyspnea Gastrointestinal Gastrointestinal: Denies abdominal pain, Denies nausea and Denies vomiting Genitourinary Genitourinary: Denies dysuria Genitourinary: Denies dysuria Musculoskeletal Musculoskeletal: Denies arthralgias and Denies myalgias Integumentary/Breasts Skin/Breast: Denies rash Neurologic Neurologic: Denies behavioral changes, Denies headache(s) and Reports tremor(s) Psychiatric Psychiatric: Denies behavioral changes Hematologic/Lymphatic Hematologic/Lymphatic: Denies easy bleeding and Denies easy bruising Allergic/Immunologic Allergic/Immunologic: Denies urticaria Patient History Medical History Alcohol abuse (Acute) Cervical radiculopathy (Inactive) Elevated transaminase level (Inactive) Hypokalemia (Inactive) Neck pain on right side (Inactive) Surgical History No history of previous surgery (Chronic) Family History Father Age: 53 Diabetes mellitus Hypertension Social History Smoking Status: Current every day smoker substance use type: marijuana additional social history: Previous heavy EtOH use, occasional THC Smoking Status: Current every day smoker tobacco type: cigarettes alcohol intake frequency: 3 or more drinks per day Alcohol type: beer and hard liquor Substance Use Type: marijuana and painkillers Exam Initial Vital Signs Initial Vital Signs: Vital Signs Temperature 98.7 F 03/16/20 23:18 Pulse Rate 100 H 03/16/20 23:18 Respiratory Rate 16 03/16/20 23:18 Blood Pressure 148/96 H 03/16/20 23:18 Pulse Oximetry 97 03/16/20 23:18 Const General: cooperative and comfortable HENMT Head: normal to inspection Resp Effort & Inspection: normal respiratory effort Auscultation: clear to auscultation bilaterally Cardio Rate: regular rate Rhythm: regular rhythm GI Inspection: non-distended Palpation: soft Skin Lesions: no lesions Rashes: no rashes Neuro General: patient alert, patient awake and patient oriented x3 Extrem General: normal to inspection and capillary refill normal Psych Appearance: grossly normal and well kempt Course Orders Ordered: ED Orders 03/16/20 23:06 Complete Blood Count AUTO DIFF Stat Comprehensive Metabolic Panel Stat Ethanol (ETOH) Stat Lipase Stat 03/16/20 23:25 Urine Drug Screen, Rapid Stat Discontinued Medications Chlordiazepoxide HCl (Librium) 25 mg PO NOW ONE Stop: 03/16/20 23:19 Last Admin: 03/16/20 23:32 Dose: 25 mg Documented by: CTRJERMAINE Vital Signs Vital signs: Vital Signs - 8 hr 03/16/20 23:18 03/16/20 23:55 03/17/20 01:12 Temperature 98.7 F 98.6 F Pulse Rate 100 H 84 66 Respiratory Rate 16 16 16 Blood Pressure 148/96 H 141/93 H 155/92 H Pulse Oximetry 97 99 98 Medical Decision Making Lab Data Lab results reviewed: Yes I reviewed the patient's lab results. Result diagrams: 03/16/20 23:06 03/16/20 23:06 Labs: Lab Results 03/16/20 03/16/20 03/16/20 Range/Units 23:06 23:06 23:25 WBC 5.4 (4.5-11.0) X10^3/uL RBC 4.67 (4.5-5.9) X10^6/uL Hgb 16.6 (13.5-17.5) g/dL Hct 47.0 (41-53) % MCV 100.8 H (80-100) fL MCH 35.6 H (26-34) PG MCHC 35.3 (30-36) % RDW 12.5 (11.6-14.8) % Plt Count 121 L (150-400) X10^3/uL Neut % (Auto) 59.0 (50-75) % Lymph % (Auto) 26.2 (25-40) % [place] % (Auto) 11.0 (3-14) % Eos % (Auto) 2.4 (2-4) % Baso % (Auto) 1.4 (0-2) % Neut # (Auto) 3200 (6512-1950) /uL Lymph # (Auto) 1400 (6530-0318) /uL [place] # (Auto) 600 (0-900) /uL Eos # (Auto) 100 (0-450) /uL Baso # (Auto) 100 (0-100) /uL Sodium 135 L (137-145) mmol/L Potassium 4.1 (3.4-5.1) mmol/L Chloride 99 (98-107) mmol/L Carbon Dioxide 24 (22-32) mmol/L BUN 9 (9-20) mg/dL Creatinine 0.74 (0.66-1.25) mg/dL Estimated GFR > 60.0 (>60) mL/min BUN/Creatinine Ratio 12.2 (6-22) Glucose 103 H (70-100) mg/dL Calcium 10.0 (8.4-10.2) mg/dL Total Bilirubin 1.1 (0.2-1.3) mg/dL AST 842 H (17-59) IU/L ALT 499 H (<50) IU/L Alkaline Phosphatase 94 (38-126) U/L Total Protein 7.7 (6.3-8.2) g/dL Albumin 4.8 (3.5-5.0) g/dL Globulin 2.9 (1.7-4.1) g/dL Albumin/Globulin Ratio 1.7 (1.0-2.8) Lipase 271 (23-300) U/L U Opiates 300ng/mL cut Negative (Negative) Ur Oxycodone Screen Negative (Negative) Urine Methadone Screen Negative (Negative) Ur Barbiturates Screen Negative (Negative) U Tricyclic Antidepress Negative (Negative) Ur Phencyclidine Scrn Negative (Negative) Ur Amphetamines Screen Negative (Negative) U Methamphetamines Scrn Negative (Negative) Ur MDMA Scrn (Ecstasy) Negative (Negative) U Benzodiazepines Scrn Negative (Negative) Urine Cocaine Screen Positive H (Negative) U Marijuana (THC) Screen Positive H (Negative) Ethyl Alcohol 33 H ( - 10) mg/dL COVID-19 PCR (Negative) 07//20 Range/Units 23:50 WBC (4.5-11.0) X10^3/uL RBC (4.5-5.9) X10^6/uL Hgb (13.5-17.5) g/dL Hct (41-53) % MCV (80-100) fL MCH (26-34) PG MCHC (30-36) % RDW (11.6-14.8) % Plt Count (150-400) X10^3/uL Neut % (Auto) (50-75) % Lymph % (Auto) (25-40) % [place] % (Auto) (3-14) % Eos % (Auto) (2-4) % Baso % (Auto) (0-2) % Neut # (Auto) (4317-7339) /uL Lymph # (Auto) (9795-2634) /uL [place] # (Auto) (0-900) /uL Eos # (Auto) (0-450) /uL Baso # (Auto) (0-100) /uL Sodium (137-145) mmol/L Potassium (3.4-5.1) mmol/L Chloride (98-107) mmol/L Carbon Dioxide (22-32) mmol/L BUN (9-20) mg/dL Creatinine (0.66-1.25) mg/dL Estimated GFR (>60) mL/min BUN/Creatinine Ratio (6-22) Glucose (70-100) mg/dL Calcium (8.4-10.2) mg/dL Total Bilirubin (0.2-1.3) mg/dL AST (17-59) IU/L ALT (<50) IU/L Alkaline Phosphatase (38-126) U/L Total Protein (6.3-8.2) g/dL Albumin (3.5-5.0) g/dL Globulin (1.7-4.1) g/dL Albumin/Globulin Ratio (1.0-2.8) Lipase (23-300) U/L U Opiates 300ng/mL cut (Negative) Ur Oxycodone Screen (Negative) Urine Methadone Screen (Negative) Ur Barbiturates Screen (Negative) U Tricyclic Antidepress (Negative) Ur Phencyclidine Scrn (Negative) Ur Amphetamines Screen (Negative) U Methamphetamines Scrn (Negative) Ur MDMA Scrn (Ecstasy) (Negative) U Benzodiazepines Scrn (Negative) Urine Cocaine Screen (Negative) U Marijuana (THC) Screen (Negative) Ethyl Alcohol ( - 10) mg/dL COVID-19 PCR Negative (Negative) MDM Narrative Medical decision making narrative: Patient is medically cleared. CIWA score 2 prior to administration of Librium however patient states that he was getting somewhat shaky. Alcohol level currently 33. His UDS is positive for cocaine and marijuana. Patient was given Librium for his symptoms. He is alert oriented x3. GCS of 15. My opinion is capacity to make decisions. No SI or HI. Will attempt to find placement for alcohol use. [facility] Will be transported by taxi. Ativan prescription given. Discharge Plan Departure Patient Disposition: Xfer Inpatient Rehab Clinical Impression: Alcohol withdrawal syndrome Qualifiers: Complication of substance-induced condition: with unspecified complication Qualified Code(s): F10.239 - Alcohol dependence with withdrawal, unspecified Instructions: DI for Alcohol Use Disorder Activity Restrictions/Additional Instructions: You are being discharged to be transported to rehab by taxi. Take the medications as directed and as needed. Return to the emergency department for any new or worsening symptoms Prescriptions: New lorazepam [Ativan] 1 mg tablet 1 mg PO DAILY PRN (Reason: alcohol withdrawal) Qty: 20 RF: 0 Referrals: Dave Mcleod MD [Primary Care Provider] -
[2020-03-16 23:13] LABS: Add Manual Diff / Slide Review NO; Basophils Absolute Auto 100 /uL (0-100); Basophils Percent Auto 1.4 % (0-2); Eosinophils Absolute Auto 100 /uL (0-450); Eosinophils Percent Auto 2.4 % (2-4); Hemoglobin 16.6 g/dL (13.5-17.5); Lymphocytes Absolute Auto 1400 /uL (1100-4500); Lymphocytes Percent Auto 26.2 % (25-40); Mean Corpuscular HGB Conc 35.3 % (30-36); Mean Corpuscular Hemoglobin 35.6 PG (26-34); Mean Corpuscular Volume 100.8 fL (80-100); Monocytes Absolute Auto 600 /uL (0-900); Neutrophils Absolute Auto 3200 /uL (1500-7000); Platelet Count 121 X10^3/uL (150-400); Red Blood Cell Count 4.67 X10^6/uL (4.5-5.9); Red Cell Distribution Width 12.5 % (11.6-14.8); White Blood Cell Count 5.4 X10^3/uL (4.5-11.0)
[2020-03-16 23:18] VITALS: BP 148/96; PULSE 100; RESP 16; TEMP 37.1; O2SAT 97; BMI 27.1
[2020-03-16 23:24] LABS: Alanine Aminotransferase 499 IU/L (<50); Albumin 4.8 g/dL (3.5-5.0); Albumin Globulin Ratio 1.7 (1.0-2.8); Alkaline Phosphatase 94 U/L (38-126); BUN Creatinine Ratio 12.2 (6-22); Bilirubin Total 1.1 mg/dL (0.2-1.3); Blood Urea Nitrogen 9 mg/dL (9-20); Carbon Dioxide 24 mmol/L (22-32); Chloride 99 mmol/L (98-107); Estimated Glomerular Filt Rate > 60.0 mL/min (>60); Globulin 2.9 g/dL (1.7-4.1); Glucose 103 mg/dL (70-100); Lipase 271 U/L (23-300); Potassium 4.1 mmol/L (3.4-5.1); Sodium 135 mmol/L (137-145); Total Protein 7.7 g/dL (6.3-8.2)
[2020-03-16 23:30] LABS: HEMOLYSIS 19 (0-50)
[2020-03-16] MEDS: chlordiazePOXIDE 25 MG CAPSULE PO (23:32)
[2020-03-16 23:33] LABS: Aspartate Aminotransferase 842 IU/L (17-59); Ethanol (ETOH) 33 mg/dL
[2020-03-16 23:42] LABS: UR Morphine/Opiate cutoff 300 Negative (Negative); Ur Creatinine Normal (Normal); Ur Specific Gravity Normal (Normal); Urine Amphetamines Negative (Negative); Urine Barbiturates Negative (Negative); Urine Benzodiazepines Negative (Negative); Urine Cocaine Positive (Negative); Urine MDMA Negative (Negative); Urine Methadone Negative (Negative); Urine Methamphetamines Negative (Negative); Urine Oxycodone Negative (Negative); Urine Phencyclidine Negative (Negative); Urine Tetrahydrocannabinol Positive (Negative); Urine Tricyclic Antidepressant Negative (Negative); Urine pH Normal (Normal)
[2020-03-16 23:55] VITALS: BP 141/93; PULSE 84; RESP 16; TEMP 37; O2SAT 99
[2020-03-17 00:52] LABS: COVID19 -Nasal RAPID Negative (Negative)
[2020-03-17 01:12] VITALS: BP 155/92; PULSE 66; RESP 16; O2SAT 98
[2020-03-17] MEDS: LORazepam 0.5 MG TABLET 1 MG PO (01:50)
== END 2020-03-17 02:00 ==
PROVIDERS: Emergency Provider Emergency Medicine; PCP Internal Medicine
DX: F10.239 Alcohol dependence with withdrawal, unspecified (principal); F14.90 Cocaine use, unspecified, uncomplicated; F12.90 Cannabis use, unspecified, uncomplicated
CPT/HCPCS: 36415; 80053; 80305; 80320; 83690; 85025; 87635; 99284

== ENCOUNTER 2020-04-09 09:59 | Emergency (ER) | payer OTHER, MEDICAID, SELFPAY ==
[2020-04-09] VITALS (7 sets, daily range): BP systolic 137–154; BP diastolic 68–89; PULSE 71–110; RESP 24; TEMP 36.9; O2SAT 95–99
[2020-04-09] MEDS: ONDANSETRON 4 MG/2 ML INJ IV (10:22)
[2020-04-09] MEDS: SODIUM CHLORIDE 0.9% 1,000 ML 1000 ML IV (10:22)
[2020-04-09] MEDS: LORazepam 2 MG/ML INJ 1 MG IV ×2 (10:22→11:20)
[2020-04-09 10:23] LABS: Prothrombin Time 10.9 SECONDS (10.1-12.7)
[2020-04-09 10:24] LABS: Add Manual Diff / Slide Review NO; Basophils Absolute Auto 100 /uL (0-100); Basophils Percent Auto 0.9 % (0-2); Eosinophils Absolute Auto 100 /uL (0-450); Eosinophils Percent Auto 1.3 % (2-4); Hematocrit 46.7 % (41-53); Hemoglobin 16.3 g/dL (13.5-17.5); Lymphocytes Absolute Auto 2200 /uL (1100-4500); Lymphocytes Percent Auto 24.6 % (25-40); Mean Corpuscular HGB Conc 34.9 % (30-36); Mean Corpuscular Hemoglobin 35.3 PG (26-34); Mean Corpuscular Volume 101.2 fL (80-100); Monocytes Absolute Auto 700 /uL (0-900); Monocytes Percent Auto 7.9 % (3-14); Neutrophils Absolute Auto 5700 /uL (1500-7000); Neutrophils Percent Auto 65.3 % (50-75); Platelet Count 157 X10^3/uL (150-400); Red Blood Cell Count 4.61 X10^6/uL (4.5-5.9); Red Cell Distribution Width 12.5 % (11.6-14.8); White Blood Cell Count 8.8 X10^3/uL (4.5-11.0)
[2020-04-09 10:29] LABS: Alanine Aminotransferase 107 IU/L (<50); Albumin 4.7 g/dL (3.5-5.0); Albumin Globulin Ratio 1.6 (1.0-2.8); Alkaline Phosphatase 121 U/L (38-126); Aspartate Aminotransferase 166 IU/L (17-59); BUN Creatinine Ratio 16.7 (6-22); Bilirubin Unconjugated 0.8 mg/dL (0.0-1.1); Blood Urea Nitrogen 13 mg/dL (9-20); Carbon Dioxide 20 mmol/L (22-32); Chloride 102 mmol/L (98-107); Estimated Glomerular Filt Rate > 60.0 mL/min (>60); Ethanol (ETOH) 87 mg/dL; Globulin 2.9 g/dL (1.7-4.1); Glucose 81 mg/dL (70-100); HEMOLYSIS < 15 (0-50); Lipase 237 U/L (23-300); Magnesium 1.6 mg/dL (1.6-2.3); Phosphorous 3.2 mg/dL (2.5-4.5); Potassium 3.8 mmol/L (3.4-5.1); Sodium 136 mmol/L (137-145); Total Protein 7.6 g/dL (6.3-8.2)
[2020-04-09 11:01] LABS: UR Morphine/Opiate cutoff 300 Negative (Negative); Ur Creatinine Normal (Normal); Ur Specific Gravity Normal (Normal); Urine Amphetamines Negative (Negative); Urine Barbiturates Negative (Negative); Urine Benzodiazepines Negative (Negative); Urine Cocaine Negative (Negative); Urine MDMA Negative (Negative); Urine Methadone Negative (Negative); Urine Methamphetamines Negative (Negative); Urine Oxycodone Negative (Negative); Urine Phencyclidine Negative (Negative); Urine Tetrahydrocannabinol Positive (Negative); Urine Tricyclic Antidepressant Negative (Negative); Urine pH Normal (Normal)
--- NOTE | 2020-04-09 11:04 | ED.ALCOHOL ---
HPI - Alcohol General Chief Complaint: Toxicology Problem Stated Complaint: Having Alcohol Withdrawl Time Seen by Provider: 04/09/20 10:12 Source: patient Mode of arrival: Ambulatory Limitations: no limitations History of Present Illness HPI narrative: Patient here for voluntary detoxing. As well as withdrawal. Patient seen here last month and transfer to [facility] for alcohol detox. Patient's CIWA score 2 at that time. Was given Librium. was positive for cocaine and marijuana. Currently patient is awake alert oriented x4 with a GCS of 15. CIWA score currently 6. Denies any SI or HI. Denies any visual hallucinations or auditory hallucinations or any seizures. Does feel like the light may be little bright. No headache. No nausea or vomiting. Slight tremors of the fingers. Patient is awake alert orient x4. Denies any falls or injuries. Denies any other drug use. complaint: alcohol withdrawal and desires rehab Related Data Previous Rx's Medication Instructions Recorded lorazepam [Ativan] 1 mg PO DAILY PRN #20 tab 03/17/20 lorazepam 1 mg PO DAILY PRN #20 tab 04/09/20 Allergies Allergy/AdvReac Type Severity Reaction Status Date / Time No Known Drug Allergies Allergy Verified 02/22/20 13:48 Review of Systems Review of Systems Narrative: GENERAL: Denies chills, fatigue, malaise, fever, sweats. HEENT: Denies sinus pain, ear pain, sore throat, difficulty swallowing, dizziness. RESPIRATORY: Denies dyspnea, cough, wheezing, hemoptysis, sputum. CARDIOVASCULAR: Denies chest pain, palpitations, orthopnea, edema, GASTROINTESTINAL: Denies nausea, vomiting, abdominal pain, diarrhea, constipation, melena. : Denies dysuria, frequency, incontinence, hematuria, urinary retention. MUSCULOSKELETAL: denies weakness, joint pain, or bony pain SKIN: Denies rash, skin lesions, or other NEUROLOGIC: Denies weakness, headache, numbness, change in speech, confusion, seizures, incoordination. PSYCHIATRIC: Slightly anxious but very cooperative. Denies any SI or HI, no auditory or visual hallucinations. ROS Unobtainable: All systems reviewed & are unremarkable except as noted in HPI and below Patient History Medical History Alcohol abuse (Acute) Cervical radiculopathy (Inactive) Elevated transaminase level (Inactive) Hypokalemia (Inactive) Neck pain on right side (Inactive) Surgical History No history of previous surgery (Chronic) Family History Father Age: 53 Diabetes mellitus Hypertension Social History Smoking Status: Current every day smoker substance use type: marijuana additional social history: Previous heavy EtOH use, occasional THC Smoking Status: Current every day smoker tobacco type: cigarettes alcohol intake frequency: 3 or more drinks per day Alcohol type: beer and hard liquor Substance Use Type: marijuana and painkillers Exam Narrative Exam Narrative: GENERAL: patient appears stated age. Well-nourished, well-developed patient, in no distress, not toxic HEAD: Atraumatic. Normocephalic. EYES: Pupils equal round and reactive. Extraocular motions intact. No scleral icterus. No injection or drainage. ENT: Nose without bleeding, purulent drainage. Throat without erythema, tonsillar hypertrophy or exudate. Airway patent. NECK: Trachea midline. Non tender CARDIOVASCULAR: Regular rate and rhythm without murmurs, gallops, or rubs. RESPIRATORY: Clear to auscultation. Breath sounds equal bilaterally. No wheezes, rales, or rhonchi. GASTROINTESTINAL: Abdomen soft, non-tender, nondistended. EXTREMITIES: No edema or joint tenderness. BACK: Nontender without deformity or crepitance. No flank tenderness. NEURO: AOx3. Clear speech no facial droop light touch intact to bilateral face hands. Strong equal director of photography. Slight tremors of the fingers. SKIN: No rash or erythema of visible areas, skin is dry PSYCH: Slightly anxious but cooperative. No SI or HI. No 10 10 chills speech or pressured speech Initial Vital Signs Initial Vital Signs: Vital Signs Temperature 98.4 F 04/09/20 10:00 Pulse Rate 110 H 04/09/20 10:00 Respiratory Rate 24 04/09/20 10:00 Blood Pressure 154/89 H 04/09/20 10:00 Pulse Oximetry 99 04/09/20 10:00 Course Orders Ordered: Discontinued Medications Sodium Chloride (Normal Saline 0.9%) 1,000 mls @ 1,000 mls/hr IV BOLUS ONE Stop: 04/09/20 11:11 Last Infusion: 04/09/20 11:24 Dose: 0 mls/hr Documented by: Admin: 04/09/20 10:22 Dose: 1,000 mls/hr Documented by: NAKIA Lorazepam (Ativan) 1 mg IV NOW ONE Stop: 04/09/20 10:19 Last Admin: 04/09/20 10:22 Dose: 1 mg Documented by: NAKIA Lorazepam (Ativan) 1 mg IV NOW ONE Stop: 04/09/20 11:06 Last Admin: 04/09/20 11:20 Dose: 1 mg Documented by: REDD Ondansetron HCl (Zofran) 4 mg IV NOW ONE Stop: 04/09/20 10:14 Last Admin: 04/09/20 10:22 Dose: 4 mg Documented by: NAKIA Vital Signs Vital signs: Vital Signs - 8 hr 04/09/20 10:00 04/09/20 10:25 04/09/20 10:30 Temperature 98.4 F Pulse Rate 110 H 79 77 Respiratory Rate 24 Blood Pressure 154/89 H 146/74 H Pulse Oximetry 99 99 98 04/09/20 11:00 04/09/20 11:30 Temperature Pulse Rate 74 71 Respiratory Rate Blood Pressure 143/73 H 138/73 Pulse Oximetry 99 96 MDM - Alcohol Lab Data Result diagrams: 04/09/20 10:09 04/09/20 10:09 Labs: Lab Results 04/09/20 04/09/20 04/09/20 Range/Units 10:09 10:09 10:09 WBC 8.8 (4.5-11.0) X10^3/uL RBC 4.61 (4.5-5.9) X10^6/uL Hgb 16.3 (13.5-17.5) g/dL Hct 46.7 (41-53) % MCV 101.2 H (80-100) fL MCH 35.3 H (26-34) PG MCHC 34.9 (30-36) % RDW 12.5 (11.6-14.8) % Plt Count 157 (150-400) X10^3/uL Neut % (Auto) 65.3 (50-75) % Lymph % (Auto) 24.6 L (25-40) % [place] % (Auto) 7.9 (3-14) % Eos % (Auto) 1.3 L (2-4) % Baso % (Auto) 0.9 (0-2) % Neut # (Auto) 5700 (1530-3325) /uL Lymph # (Auto) 2200 (5477-3290) /uL [place] # (Auto) 700 (0-900) /uL Eos # (Auto) 100 (0-450) /uL Baso # (Auto) 100 (0-100) /uL PT 10.9 (10.1-12.7) SECONDS INR 1.0 (0.9-1.3) Sodium 136 L (137-145) mmol/L Potassium 3.8 (3.4-5.1) mmol/L Chloride 102 (98-107) mmol/L Carbon Dioxide 20 L (22-32) mmol/L BUN 13 (9-20) mg/dL Creatinine 0.78 (0.66-1.25) mg/dL Estimated GFR > 60.0 (>60) mL/min BUN/Creatinine Ratio 16.7 (6-22) Glucose 81 (70-100) mg/dL Calcium 9.0 (8.4-10.2) mg/dL Phosphorus 3.2 (2.5-4.5) mg/dL Magnesium 1.6 (1.6-2.3) mg/dL Total Bilirubin 1.0 (0.2-1.3) mg/dL Conjugated Bilirubin 0.0 (0.0-0.3) md/dL Unconjugated Bilirubin 0.8 (0.0-1.1) mg/dL AST 166 H (17-59) IU/L ALT 107 H (<50) IU/L Alkaline Phosphatase 121 (38-126) U/L Total Protein 7.6 (6.3-8.2) g/dL Albumin 4.7 (3.5-5.0) g/dL Globulin 2.9 (1.7-4.1) g/dL Albumin/Globulin Ratio 1.6 (1.0-2.8) Lipase 237 (23-300) U/L Urine RBC (0-5/HPF) Urine WBC (0-5/HPF) Urine Bacteria (None) Ur Culture Indicated? U Opiates 300ng/mL cut (Negative) Ur Oxycodone Screen (Negative) Urine Methadone Screen (Negative) Ur Barbiturates Screen (Negative) U Tricyclic Antidepress (Negative) Ur Phencyclidine Scrn (Negative) Ur Amphetamines Screen (Negative) U Methamphetamines Scrn (Negative) Ur MDMA Scrn (Ecstasy) (Negative) U Benzodiazepines Scrn (Negative) Urine Cocaine Screen (Negative) U Marijuana (THC) Screen (Negative) Ethyl Alcohol 87 H ( - 10) mg/dL 04/09/20 04/09/20 Range/Units 10:50 11:04 WBC (4.5-11.0) X10^3/uL RBC (4.5-5.9) X10^6/uL Hgb (13.5-17.5) g/dL Hct (41-53) % MCV (80-100) fL MCH (26-34) PG MCHC (30-36) % RDW (11.6-14.8) % Plt Count (150-400) X10^3/uL Neut % (Auto) (50-75) % Lymph % (Auto) (25-40) % [place] % (Auto) (3-14) % Eos % (Auto) (2-4) % Baso % (Auto) (0-2) % Neut # (Auto) (4618-7791) /uL Lymph # (Auto) (1625-9310) /uL [place] # (Auto) (0-900) /uL Eos # (Auto) (0-450) /uL Baso # (Auto) (0-100) /uL PT (10.1-12.7) SECONDS INR (0.9-1.3) Sodium (137-145) mmol/L Potassium (3.4-5.1) mmol/L Chloride (98-107) mmol/L Carbon Dioxide (22-32) mmol/L BUN (9-20) mg/dL Creatinine (0.66-1.25) mg/dL Estimated GFR (>60) mL/min BUN/Creatinine Ratio (6-22) Glucose (70-100) mg/dL Calcium (8.4-10.2) mg/dL Phosphorus (2.5-4.5) mg/dL Magnesium (1.6-2.3) mg/dL Total Bilirubin (0.2-1.3) mg/dL Conjugated Bilirubin (0.0-0.3) md/dL Unconjugated Bilirubin (0.0-1.1) mg/dL AST (17-59) IU/L ALT (<50) IU/L Alkaline Phosphatase (38-126) U/L Total Protein (6.3-8.2) g/dL Albumin (3.5-5.0) g/dL Globulin (1.7-4.1) g/dL Albumin/Globulin Ratio (1.0-2.8) Lipase (23-300) U/L Urine RBC 0-1/hpf (0-5/HPF) Urine WBC None seen (0-5/HPF) Urine Bacteria None seen (None) Ur Culture Indicated? Cult not indicated U Opiates 300ng/mL cut Negative (Negative) Ur Oxycodone Screen Negative (Negative) Urine Methadone Screen Negative (Negative) Ur Barbiturates Screen Negative (Negative) U Tricyclic Antidepress Negative (Negative) Ur Phencyclidine Scrn Negative (Negative) Ur Amphetamines Screen Negative (Negative) U Methamphetamines Scrn Negative (Negative) Ur MDMA Scrn (Ecstasy) Negative (Negative) U Benzodiazepines Scrn Negative (Negative) Urine Cocaine Screen Negative (Negative) U Marijuana (THC) Screen Positive H (Negative) Ethyl Alcohol ( - 10) mg/dL Urine Dip Bedside Urine Glucose Negative Bedside Urine Bilirubin - Negative Bedside Urine Ketone ++ 40 Urine Specific [place] 1.020 Bedside Urine Occult Blood +/- Bedside Urine pH 6.0 Bedside Urine Protein + 30 Bedside Urine Urobilinogen +/- 1mg Bedside Urine Nitrite - Negative Bedside Urine Leukocytes - Negative Esterase MDM Narrative Medical decision making narrative: Patient is medically cleared. Feels much better after Ativan, tremors have improved. Remains awake alert oriented x4. GCS of 15. He is able to make decisions, has full faculties to do so. Patient on phone with crisis Center for placement Time 12:16 p.m.. Patient feels much better after Ativan. No tremors. No sweating. Much less anxious. No hallucinations. CIWA score of 2. Patient is medically cleared for detox. Has no symptoms or exposure to Covid and is medically cleared for detox Discharge Plan Departure Patient Disposition: Home Clinical Impression: Alcohol withdrawal syndrome Qualifiers: Complication of substance-induced condition: uncomplicated Qualified Code(s): F10.230 - Alcohol dependence with withdrawal, uncomplicated Discharge Date/Time: 04/09/20 13:10 Instructions: DI for Alcohol Use Disorder Activity Restrictions/Additional Instructions: To [facility]. Return if worse or if any questions or concerns. Prescriptions: New lorazepam 1 mg tablet 1 mg PO DAILY PRN (Reason: alcohol withdrawal) Qty: 20 RF: 0 No Action lorazepam [Ativan] 1 mg tablet 1 mg PO DAILY PRN (Reason: alcohol withdrawal) Qty: 20 RF: 0 Referrals: Dave Mcleod MD [Primary Care Provider] -
[2020-04-09 11:05] LABS: Bacteria Urine None Seen; WBC Urine None Seen (0-5/HPF)
[2020-04-09 11:13] LABS: Culture Indicated Urine Cult Not Indicated; RBC Urine 0-1/HPF (0-5/HPF)
== END 2020-04-09 13:10 | disposition home or self-care (01) ==
PROVIDERS: Emergency Provider Emergency Medicine; PCP Internal Medicine
DX: F10.230 Alcohol dependence with withdrawal, uncomplicated (principal); F12.90 Cannabis use, unspecified, uncomplicated; Y90.4 Blood alcohol level of 80-99 mg/100 ml
CPT/HCPCS: 36415; 80053; 80076; 80305; 80320; 81003; 81015; 83690; 83735; 84100; 85025; 85610; 96361; 96374; 96375; 96376; 99284; J2060; J2405

== ENCOUNTER 2020-05-03 11:12 | Emergency (ER) | payer OTHER, MEDICAID, SELFPAY ==
[2020-05-03 11:30] VITALS: BP 134/80; PULSE 99; RESP 18; TEMP 36.4; O2SAT 99; BMI 23.7
--- NOTE | 2020-05-03 11:53 | ED.ALCOHOL ---
HPI - Alcohol <VERO Arrington - Last Filed: 05/03/20 16:45> General Chief Complaint: Toxicology Problem Stated Complaint: lauren jamesonls Time Seen by Provider: 05/03/20 11:34 Source: patient Mode of arrival: Ambulatory Limitations: no limitations History of Present Illness HPI narrative: The patient is a 25-year-old male current smoker with history of alcoholism who presents with a chief complaint of alcohol withdrawal. He states that he has been clean for about a month and half, but moved into a bad department and started drinking again. He states he is currently drinking a 12 pack of beer plus some hard alcohol every day, no illicit drugs but does smoke marijuana once in a while. Denies any thoughts of hurting himself or anybody else. He states he does not want to go into detox, would rather do it at home with his parents. He states that his parents will last him to stay with them if he is clean and trying to get clean. He would like to get clean in order to start a new job and help get custody of his children. He is wondering if we have any outpatient resources. The patient has been to alcohol detox several times. He states his last drink was about 4 hours ago. He states he is starting to shake. Initial CIWA score is 5. Related Data Previous Rx's Medication Instructions Recorded lorazepam [Ativan] 1 mg PO DAILY PRN #20 tab 03/17/20 lorazepam 1 mg PO DAILY PRN #20 tab 04/09/20 Allergies Allergy/AdvReac Type Severity Reaction Status Date / Time No Known Drug Allergies Allergy Verified 05/03/20 11:37 Review of Systems <TORI Arrington - Last Filed: 05/03/20 16:45> Review of Systems Narrative: GENERAL: Denies chills, fatigue, malaise, fever, sweats. HEENT: Denies sinus pain, ear pain, sore throat, difficulty swallowing, dizziness. RESPIRATORY: Denies dyspnea, cough, wheezing, hemoptysis, sputum. CARDIOVASCULAR: Denies chest pain, palpitations, orthopnea, edema, GASTROINTESTINAL: Denies nausea, vomiting, abdominal pain, diarrhea, constipation, melena. : Denies dysuria, frequency, incontinence, hematuria, urinary retention. MUSCULOSKELETAL: denies weakness, joint pain, or bony pain SKIN: Denies rash, skin lesions, or other NEUROLOGIC: Denies weakness, headache, numbness, change in speech, confusion, seizures, incoordination. PSYCHIATRIC: See HPI 12 point review of systems is negative except for those stated above Patient History <TORI Arrington - Last Filed: 05/03/20 16:45> Medical History (Updated 05/03/20 @ 15:37 by TORI Arrington) Alcohol abuse (Acute) Cervical radiculopathy (Inactive) Elevated transaminase level (Inactive) Hypokalemia (Inactive) Neck pain on right side (Inactive) Surgical History (Updated 05/03/20 @ 15:57 by Cely Connelly RN) No history of previous surgery (Chronic) Family History Father Age: 53 Diabetes mellitus Hypertension Social History Smoking Status: Current every day smoker substance use type: marijuana additional social history: Previous heavy EtOH use, occasional THC Smoking Status: Current every day smoker tobacco type: cigarettes alcohol intake frequency: 3 or more drinks per day Alcohol type: beer and hard liquor Substance Use Type: marijuana and painkillers Exam <TORI Arrington - Last Filed: 05/03/20 16:45> Narrative Exam Narrative: GENERAL: This is a well-nourished, well-developed patient, in mild distress. HEAD: Atraumatic. Normocephalic. No temporal or scalp tenderness. EYES: Pupils equal round and reactive. Extraocular motions intact. No scleral icterus. No injection or drainage. ENT: Nose without bleeding, purulent drainage or septal hematoma. Wearing a mask Airway patent. NECK: Trachea midline. No JVD or lymphadenopathy. Supple, nontender, no meningeal signs. CARDIOVASCULAR: Regular rate and rhythm RESPIRATORY: Clear to auscultation. Breath sounds equal bilaterally. No wheezes, rales, or rhonchi. No cough. No increased respiratory effort. No accessory muscle use. GASTROINTESTINAL: Abdomen soft, non-tender, nondistended. No hepato-splenomegaly, or palpable masses. No guarding. EXTREMITIES: No clubbing, cyanosis, or edema. No joint tenderness, effusion, or edema noted. BACK: Nontender without deformity or crepitance. No flank tenderness. NEURO: AOx3. Clear speech. Not slurred speech. Interactive. Age appropriate. Denies SI or HI. SKIN: No rash or erythema. Initial Vital Signs Initial Vital Signs: Vital Signs Temperature 97.6 F 05/03/20 11:30 Pulse Rate 99 H 05/03/20 11:30 Respiratory Rate 18 05/03/20 11:30 Blood Pressure 134/80 05/03/20 11:30 Pulse Oximetry 99 05/03/20 11:30 <Dave Howard MD - Last Filed: 05/03/20 18:21> Initial Vital Signs Initial Vital Signs: Vital Signs Temperature 97.6 F 05/03/20 11:30 Pulse Rate 99 H 05/03/20 11:30 Respiratory Rate 18 05/03/20 11:30 Blood Pressure 134/80 05/03/20 11:30 Pulse Oximetry 99 05/03/20 11:30 Course <TORI Arrington - Last Filed: 05/03/20 16:45> Orders Ordered: ED Orders 05/03/20 11:37 Consult to FRUIT HARVE[employer] MACHINE OPERATOR - Press Set Up Person Stat 05/03/20 11:54 Urine Drug Screen, Rapid Stat 05/03/20 11:58 Complete Blood Count AUTO DIFF Stat Comprehensive Metabolic Panel Stat Ethanol (ETOH) Stat Hepatic (Liver) Panel Stat Lipase Stat Magnesium Stat Discontinued Medications Lorazepam (Ativan) 1 mg PO NOW ONE Stop: 05/03/20 12:32 Last Admin: 05/03/20 13:19 Dose: 1 mg Documented by: SABI Ondansetron HCl (Zofran Odt) 4 mg SL NOW ONE Stop: 05/03/20 12:32 Last Admin: 05/03/20 13:19 Dose: 4 mg Documented by: SABI Phenobarbital (Phenobarbital) 130 mg IV NOW ONE Stop: 05/03/20 14:12 Last Admin: 05/03/20 14:47 Dose: 130 mg Documented by: SABI Vital Signs Vital signs: Vital Signs - 8 hr 05/03/20 11:30 05/03/20 14:49 05/03/20 15:52 Temperature 97.6 F 98.1 F 98.1 F Pulse Rate 99 H 83 98 H Respiratory Rate 18 16 14 Blood Pressure 134/80 138/71 139/87 Pulse Oximetry 99 99 99 <Dave Howard MD - Last Filed: 05/03/20 18:21> Orders Ordered: ED Orders 05/03/20 11:37 Consult to FRUIT HARVESTER MACHINE OPERATOR - Press Set Up Person Stat 05/03/20 11:54 Urine Drug Screen, Rapid Stat 05/03/20 11:58 Complete Blood Count AUTO DIFF Stat Comprehensive Metabolic Panel Stat Ethanol (ETOH) Stat Hepatic (Liver) Panel Stat Lipase Stat Magnesium Stat Discontinued Medications Lorazepam (Ativan) 1 mg PO NOW ONE Stop: 05/03/20 12:32 Last Admin: 05/03/20 13:19 Dose: 1 mg Documented by: SABI Ondansetron HCl (Zofran Odt) 4 mg SL NOW ONE Stop: 05/03/20 12:32 Last Admin: 05/03/20 13:19 Dose: 4 mg Documented by: SABI Phenobarbital (Phenobarbital) 130 mg IV NOW ONE Stop: 05/03/20 14:12 Last Admin: 05/03/20 14:47 Dose: 130 mg Documented by: SABI Vital Signs Vital signs: Vital Signs - 8 hr 05/03/20 11:30 05/03/20 14:49 05/03/20 15:52 Temperature 97.6 F 98.1 F 98.1 F Pulse Rate 99 H 83 98 H Respiratory Rate 18 16 14 Blood Pressure 134/80 138/71 139/87 Pulse Oximetry 99 99 99 MDM - Alcohol <JAYMIE Arrington-BC - Last Filed: 05/03/20 16:45> Lab Data Result diagrams: 05/03/20 11:58 05/03/20 11:58 Labs: Lab Results 05/03/20 05/03/20 05/03/20 Range/Units 11:54 11:58 11:58 WBC 4.8 (4.5-11.0) X10^3/uL RBC 4.72 (4.5-5.9) X10^6/uL Hgb 17.1 (13.5-17.5) g/dL Hct 48.2 (41-53) % MCV 102.1 H (80-100) fL MCH 36.2 H (26-34) PG MCHC 35.4 (30-36) % RDW 12.7 (11.6-14.8) % Plt Count 169 (150-400) X10^3/uL Neut % (Auto) 57.3 (50-75) % Lymph % (Auto) 31.6 (25-40) % Crook % (Auto) 7.1 (3-14) % Eos % (Auto) 2.9 (2-4) % Baso % (Auto) 1.1 (0-2) % Neut # (Auto) 2800 (3156-7284) /uL Lymph # (Auto) 1500 (5499-9477) /uL Crook # (Auto) 300 (0-900) /uL Eos # (Auto) 100 (0-450) /uL Baso # (Auto) 100 (0-100) /uL Sodium 145 (137-145) mmol/L Potassium 4.6 (3.4-5.1) mmol/L Chloride 106 (98-107) mmol/L Carbon Dioxide 28 (22-32) mmol/L BUN 8 L (9-20) mg/dL Creatinine 0.90 (0.66-1.25) mg/dL Estimated GFR > 60.0 (>60) mL/min BUN/Creatinine Ratio 8.9 (6-22) Glucose 96 (70-100) mg/dL Calcium 8.9 (8.4-10.2) mg/dL Magnesium 2.4 H (1.6-2.3) mg/dL Total Bilirubin 0.7 (0.2-1.3) mg/dL Conjugated Bilirubin 0.0 (0.0-0.3) md/dL Unconjugated Bilirubin 0.5 (0.0-1.1) mg/dL AST 231 H (17-59) IU/L ALT 128 H (<50) IU/L Alkaline Phosphatase 110 (38-126) U/L Total Protein 8.6 H (6.3-8.2) g/dL Albumin 4.8 (3.5-5.0) g/dL Globulin 3.8 (1.7-4.1) g/dL Albumin/Globulin Ratio 1.3 (1.0-2.8) Lipase 236 (23-300) U/L U Opiates 300ng/mL cut Negative (Negative) Ur Oxycodone Screen Negative (Negative) Urine Methadone Screen Negative (Negative) Ur Barbiturates Screen Negative (Negative) U Tricyclic Antidepress Negative (Negative) Ur Phencyclidine Scrn Negative (Negative) Ur Amphetamines Screen Negative (Negative) U Methamphetamines Scrn Negative (Negative) Ur MDMA Scrn (Ecstasy) Negative (Negative) U Benzodiazepines Scrn Negative (Negative) Urine Cocaine Screen Negative (Negative) U Marijuana (THC) Screen Negative (Negative) Ethyl Alcohol 425 H* ( - 10) mg/dL Urine Dip Bedside Urine Glucose Negative Bedside Urine Bilirubin - Negative Bedside Urine Ketone - Negative Urine Specific [place] 1.005 Bedside Urine Occult Blood - Negative Bedside Urine pH 6.0 Bedside Urine Protein - Negative Bedside Urine Urobilinogen - Negative Bedside Urine Nitrite - Negative Bedside Urine Leukocytes - Negative Esterase MDM Narrative Medical decision making narrative: The patient is a 25-year-old male who presents requesting alcohol detox. He does not want inpatient detox, is requesting prescription of Ativan. The patient presents clinically sober, however has an elevated alcohol at 0.425. He spent a great deal of time with Yasmani GUERRA, and came up with an outpatient plan including any primary care provider with an appointment on Wednesday. He was also given multiple resources for meetings in person, referrals etcetera. The patient was given single dose of Ativan in the emergency department as well as IV phenobarbital. He felt much improved after the phenobarbital. He has no desire to go inpatient or inpatient detox at this point time but is motivated for sobriety due to his new job and requesting custody of his children. The patient denies any SI or HI. I did discuss that I was not comfortable giving him a lorazepam prescriptions given how elevated his alcohol is at this point time. He is okay with this and was happy with the IV phenobarbital. Discussed elevated liver enzymes, patient states that these are baseline for him. I discussed at length coming back to ER for acute concerns and follow up with primary care provider as well as all the resources given by social Work. Patient has no questions or concerns upon discharge and states understanding return precautions as well as follow-up care. The patient was unable to get a ride home, so a taxi was called. The patient was clinically sober upon discharge. <Dave Howard MD - Last Filed: 05/03/20 18:21> Lab Data Labs: Lab Results 05/03/20 05/03/20 05/03/20 Range/Units 11:54 11:58 11:58 WBC 4.8 (4.5-11.0) X10^3/uL RBC 4.72 (4.5-5.9) X10^6/uL Hgb 17.1 (13.5-17.5) g/dL Hct 48.2 (41-53) % MCV 102.1 H (80-100) fL MCH 36.2 H (26-34) PG MCHC 35.4 (30-36) % RDW 12.7 (11.6-14.8) % Plt Count 169 (150-400) X10^3/uL Neut % (Auto) 57.3 (50-75) % Lymph % (Auto) 31.6 (25-40) % Crook % (Auto) 7.1 (3-14) % Eos % (Auto) 2.9 (2-4) % Baso % (Auto) 1.1 (0-2) % Neut # (Auto) 2800 (2640-2185) /uL Lymph # (Auto) 1500 (3345-8710) /uL Crook # (Auto) 300 (0-900) /uL Eos # (Auto) 100 (0-450) /uL Baso # (Auto) 100 (0-100) /uL Sodium 145 (137-145) mmol/L Potassium 4.6 (3.4-5.1) mmol/L Chloride 106 (98-107) mmol/L Carbon Dioxide 28 (22-32) mmol/L BUN 8 L (9-20) mg/dL Creatinine 0.90 (0.66-1.25) mg/dL Estimated GFR > 60.0 (>60) mL/min BUN/Creatinine Ratio 8.9 (6-22) Glucose 96 (70-100) mg/dL Calcium 8.9 (8.4-10.2) mg/dL Magnesium 2.4 H (1.6-2.3) mg/dL Total Bilirubin 0.7 (0.2-1.3) mg/dL Conjugated Bilirubin 0.0 (0.0-0.3) md/dL Unconjugated Bilirubin 0.5 (0.0-1.1) mg/dL AST 231 H (17-59) IU/L ALT 128 H (<50) IU/L Alkaline Phosphatase 110 (38-126) U/L Total Protein 8.6 H (6.3-8.2) g/dL Albumin 4.8 (3.5-5.0) g/dL Globulin 3.8 (1.7-4.1) g/dL Albumin/Globulin Ratio 1.3 (1.0-2.8) Lipase 236 (23-300) U/L U Opiates 300ng/mL cut Negative (Negative) Ur Oxycodone Screen Negative (Negative) Urine Methadone Screen Negative (Negative) Ur Barbiturates Screen Negative (Negative) U Tricyclic Antidepress Negative (Negative) Ur Phencyclidine Scrn Negative (Negative) Ur Amphetamines Screen Negative (Negative) U Methamphetamines Scrn Negative (Negative) Ur MDMA Scrn (Ecstasy) Negative (Negative) U Benzodiazepines Scrn Negative (Negative) Urine Cocaine Screen Negative (Negative) U Marijuana (THC) Screen Negative (Negative) Ethyl Alcohol 425 H* ( - 10) mg/dL Urine Dip Bedside Urine Glucose Negative Bedside Urine Bilirubin - Negative Bedside Urine Ketone - Negative Urine Specific [place] 1.005 Bedside Urine Occult Blood - Negative Bedside Urine pH 6.0 Bedside Urine Protein - Negative Bedside Urine Urobilinogen - Negative Bedside Urine Nitrite - Negative Bedside Urine Leukocytes - Negative Esterase Discharge Plan Departure Patient Disposition: Home Clinical Impression: No history of previous surgery Alcoholic intoxication Qualifiers: Complication of substance-induced condition: uncomplicated Qualified Code(s): F10.920 - Alcohol use, unspecified with intoxication, uncomplicated Discharge Date/Time: 05/03/20 15:57 Instructions: DI for Delirium Tremens, DI for Alcohol Use Disorder, DI for Drug or Alcohol Withdrawal Activity Restrictions/Additional Instructions: Thank you for trusting us with your care today. As discussed, please follow-up with your new primary care provider as set up by social work. Yasmani has given you several resources including meetings, counselor etcetera. Please follow through with these meetings. You have an appointment with her new primary care provider, Dr. Daryl Yan at 1:15 p.m. on WednesdayMay 06 at [facility] Please follow-up with [facility]treatment for alcohol use. The phone #[phone]. We have also given you contact information to [facility]. Please come back to emergency department for any acute concerns. Prescriptions: No Action lorazepam [Ativan] 1 mg tablet 1 mg PO DAILY PRN (Reason: alcohol withdrawal) Qty: 20 RF: 0 lorazepam 1 mg tablet 1 mg PO DAILY PRN (Reason: alcohol withdrawal) Qty: 20 RF: 0 Referrals: Dave Mcleod MD [Primary Care Provider] - Sandip Yan MD [Physician] - <Dave Howard MD - Last Filed: 05/03/20 18:21> Cosign ED Attending Cosignature Attestation: I was immediately available in the department for consultation. This documentation has been reviewed and I agree with assessment and plan. Supervised by Dave Howard MD
[2020-05-03 12:08] LABS: Add Manual Diff / Slide Review NO; Basophils Absolute Auto 100 /uL (0-100); Basophils Percent Auto 1.1 % (0-2); Eosinophils Absolute Auto 100 /uL (0-450); Eosinophils Percent Auto 2.9 % (2-4); Hematocrit 48.2 % (41-53); Hemoglobin 17.1 g/dL (13.5-17.5); Lymphocytes Absolute Auto 1500 /uL (1100-4500); Lymphocytes Percent Auto 31.6 % (25-40); Mean Corpuscular HGB Conc 35.4 % (30-36); Mean Corpuscular Hemoglobin 36.2 PG (26-34); Mean Corpuscular Volume 102.1 fL (80-100); Monocytes Absolute Auto 300 /uL (0-900); Monocytes Percent Auto 7.1 % (3-14); Neutrophils Absolute Auto 2800 /uL (1500-7000); Neutrophils Percent Auto 57.3 % (50-75); Platelet Count 169 X10^3/uL (150-400); Red Blood Cell Count 4.72 X10^6/uL (4.5-5.9); Red Cell Distribution Width 12.7 % (11.6-14.8); White Blood Cell Count 4.8 X10^3/uL (4.5-11.0)
[2020-05-03 12:14] LABS: UR Morphine/Opiate cutoff 300 Negative (Negative); Ur Creatinine Normal (Normal); Ur Specific Gravity Normal (Normal); Urine Amphetamines Negative (Negative); Urine Barbiturates Negative (Negative); Urine Benzodiazepines Negative (Negative); Urine Cocaine Negative (Negative); Urine MDMA Negative (Negative); Urine Methadone Negative (Negative); Urine Methamphetamines Negative (Negative); Urine Oxycodone Negative (Negative); Urine Phencyclidine Negative (Negative); Urine Tetrahydrocannabinol Negative (Negative); Urine Tricyclic Antidepressant Negative (Negative); Urine pH Normal (Normal)
[2020-05-03 12:17] LABS: Alanine Aminotransferase 128 IU/L (<50); Albumin 4.8 g/dL (3.5-5.0); Albumin Globulin Ratio 1.3 (1.0-2.8); Alkaline Phosphatase 110 U/L (38-126); Aspartate Aminotransferase 231 IU/L (17-59); BUN Creatinine Ratio 8.9 (6-22); Bilirubin Total 0.7 mg/dL (0.2-1.3); Bilirubin Unconjugated 0.5 mg/dL (0.0-1.1); Blood Urea Nitrogen 8 mg/dL (9-20); Calcium 8.9 mg/dL (8.4-10.2); Carbon Dioxide 28 mmol/L (22-32); Chloride 106 mmol/L (98-107); Estimated Glomerular Filt Rate > 60.0 mL/min (>60); Globulin 3.8 g/dL (1.7-4.1); Glucose 96 mg/dL (70-100); HEMOLYSIS < 15 (0-50); Lipase 236 U/L (23-300); Magnesium 2.4 mg/dL (1.6-2.3); Potassium 4.6 mmol/L (3.4-5.1); Sodium 145 mmol/L (137-145); Total Protein 8.6 g/dL (6.3-8.2)
[2020-05-03 12:26] LABS: Ethanol (ETOH) 425 mg/dL
[2020-05-03] MEDS: ONDANSETRON 4 MG ODT SL (13:19)
[2020-05-03] MEDS: LORazepam 0.5 MG TABLET 1 MG PO (13:19)
--- NOTE | 2020-05-03 14:10 | CM.SWNOTE ---
ALMOND BLANCHER note/assessment ALMOND BLANCHER - Travel Physical Therapist Assessment ALMOND BLANCHER - Travel Physical Therapist Assessment Start: 05/03/20 13:43 Freq: Status: Active Protocol: Document 05/03/20 13:43 BRI (Rec: 05/03/20 14:10 BRI [id number]) ALMOND BLANCHER/Travel Physical Therapist Assessment Time Spent with Patient Start date 05/03/20 Visit Start Time 12:30 End date 05/03/20 Visit End Time 13:30 Total time Care Management spent on 60 patient visit-in minutes Substance Abuse Screening Include Onset, Duration, Intensity Presenting Problem Patient presents to ED today experiencing alcohol withdrawals. Patient reports drinking 14+ beers prior to today's visit to ED. Patient's ETOH is 425 mg/dL upon presentation to ED. Precipitating Event(s) Patient reports he is currently in a custody carr for his 7 year old son. Patient reports his father has been diagnosed with cancer and isn't doing well. Patient reports moving from an unhealthy housing situation into a different house with roommates who do not drink or use substances on a daily basis. Patient has been to ED for concerns related to ETOH 7 times during 2019. Last ED visit was 04/09/20, and patient xfered to detox. Patient reports he abstained from alcohol for roughly 3 weeks, and relapsed around the time he moved into his current housing situation. Patient Strengths Patient presents with many strengths. Patient is very caring, and explains that he greatly values helping those around him. I would give the shirt off my back to any of my family or friends, patient explains. Patient presents to ED today with significant motivation to achieve sobriety . Current Behavioral Health Provider(s) None- patient referred to [facility] Include Facility, Provider, Ph. # [facility]. Family Hx of Behavioral Abuse None reported. Rehab Facilities? ((Date(s), Location(s) Patient has attended detox ) several times, and inpatient treatment twice. Patient last attended detox 04/09/20 ([facility]), and last attended inpatient treatment roughly 2 years ago in [place]. History of Withdrawal? Seizures? Patient reports experiencing a seizure 2-3 months prior when he tried to stop drinking cold turkey. Patient reports experiencing tremors, anxiety, and nausea while withdrawing from alcohol. Longest Period of Sobriety 6 months, after inpatient treatment, 2 years prior to today's ED visit. Psychosocial information & Support Patient is a 25 y/o male who Systems lives with two roommates in [place]. Patient has one son who is 7 years old, and is currently experiencing a custody carr with the child' s mother. Patient currently works for a local [employer] business, and states he is motivated to keep this job. Patient has been experiencing alcohol use disorder since he was 20 years old, and reports consuming alcohol throughout the day, every day. Patient states he feels supported by his parents, is motivated by his child and job , and has several friends who verbally support his efforts in sobriety. School/Work Patient currently works at a [employer]. Legal Concerns Legal Matters - Outstanding Issues None reported. Mental Status Orientation (Person/Place/Time) Oriented x3 Stated Mood not good Affect (Congruent with Mood?) Dysphoric, stable, congruent with mood. Thought Content - Specify/Describe No obsessions, delusions, or Obsessions, Delusions, Hallucinations hallucinations observed or reported Thought Processes (Xjmvaka-Urmpvgix-Cznh Coherent Kjchspow-Liggbkjr-Manqmeqmdy- Pofobhkwrivmou-Lsnetmp-Vcmkiplfpqof- Thought Blocking) Speech (Zojmfr-Fiyt-Xpwmcsh-Rapid-Soft- Mostly normal, slight slurring Loud-Pressured) due to intoxication. Motor (Yeibch-Shfduvobt-Rdqw-Other) Normal, slight tremors noted. Insight (Eafj-Ytdj-Jhxv/Limited) Good Judgement (Xvdn-Ekcf-Qler/Limited) Good/limited due to intoxication Impulse Control (Adequate-Impaired) Adequate Memory (Juwrhunty-Wupgph-Ntdzeq, Intact x3 Impaired-Intact) Concentration (Intact-Impaired) Intact Attention (Intact-Impaired) Intact Behavior (Appropriate-Inappropriate) Appropriate. Patient was open, polite, and cooperative throughout assessment. Additional Comment Patient's ETOH was 425 immediately prior to assessment. Patient spoke clearly and maintained focus and orientation throughout assessment. Risk Assessment Suicidal Ideation (Plan) No Homicidal Ideation (Plan) No Comment Patient adamantly denies SI/HI . Intervention Intervention ALMOND BLANCHER meets with patient and discusses alcohol use. Patient reports he has been struggling with alcohol use for roughly 5 years, and has tried several different interventions to try to discontinue his alcohol use. Patient reports he is tired of this and explains that he does not want to keep drinking and then coming into the ED. Patient states he wants to stop drinking, and states that he is motivated to do so by his son, his father, and his job. I have a lot to lose patient explains, and states that he is worried that he will lose this due to his alcohol use. Patient explains he does not want to attend detox or inpatient treatment due to his job. Patient states he is open to outpatient resources, but explains he has not had positive experiences with online/video groups. ALMOND BLANCHER and patient discuss support resources. Patient expresses interest in obtaining new PCP and counselor, and ALMOND BLANCHER will assist in securing local PCP and counselor. ALMOND BLANCHER referred patient to [facility] for additional outpatient support, and provides patient with date and times of informal AA meetings that take place in a socially distanced but in person fashion. Patient states he feels confident he can be successful with additional support and thanks ALMOND BLANCHER for resources. ALMOND BLANCHER offers that ALMOND BLANCHER is hopeful for patient success in recovery. Plan RA Plan Patient to be given outpatient supports and will likely be d /c'ed to home. MARI Jeter
[2020-05-03] MEDS: PHENobarbital 65 MG/ML VIAL 130 MG IV (14:47)
[2020-05-03 14:49] VITALS: BP 138/71; PULSE 83; RESP 16; TEMP 36.7; O2SAT 99
--- NOTE | 2020-05-03 14:55 | CM.SWNOTE ---
INCIDENT RESPONSE LEAD note After assessment, INCIDENT RESPONSE LEAD calls [facility] at [phone] to coordinate counseling appt. for patient. Staff at [facility] take patient's info, and request that patient calls them to set up an appointment directly. INCIDENT RESPONSE LEAD then calls [facility] to see if patient can get an appt. with a PCP. Verito at [facility] sets up appt. with Dr. Yan for Wednesday, 05/06, at 1315, and asks INCIDENT RESPONSE LEAD to print out new patient packet for patient to bring to appointment. INCIDENT RESPONSE LEAD creates a document with the above information, new patient packet for A, a list of in-person recovery meetings, contact info for: A, [facility], [facility], and ED INCIDENT RESPONSE LEAD line. INCIDENT RESPONSE LEAD puts a copy in paper chart and brings other copy to patient. INCIDENT RESPONSE LEAD goes over the items above with patient who indicates understanding and agreement with plan. INCIDENT RESPONSE LEAD discusses plan with ERIC Arrington, who indicates agreement with plan and informs INCIDENT RESPONSE LEAD that patient will be d/c'ed to home after stay here. Pl: Patient to d/c to home with outpatient supports. MARI Jeter
[2020-05-03 15:52] VITALS: BP 139/87; PULSE 98; RESP 14; TEMP 36.7; O2SAT 99
== END 2020-05-03 15:57 | disposition home or self-care (01) ==
PROVIDERS: Emergency Provider Nurse Practitioner Family; PCP Internal Medicine
DX: F10.129 Alcohol abuse with intoxication, unspecified (principal); Y90.8 Blood alcohol level of 240 mg/100 ml or more
CPT/HCPCS: 36415; 80053; 80076; 80305; 80320; 81003; 83690; 83735; 85025; 96374; 99284; J2560

== ENCOUNTER 2020-07-29 22:47 | Emergency (ER) | payer OTHER, MEDICAID, SELFPAY ==
[2020-07-29 23:11] VITALS: BP 122/71; PULSE 102; RESP 118; TEMP 36.9; O2SAT 95; BMI 22.0
[2020-07-29 23:18] VITALS: PULSE 111; O2SAT 98
[2020-07-29 23:30] VITALS: PULSE 89; O2SAT 96
[2020-07-29] MEDS: LORazepam 2 MG/ML INJ IV (23:33)
[2020-07-29] MEDS: SODIUM CHLORIDE 0.9% 1,000 ML 1000 ML IV (23:33)
[2020-07-29] MEDS: THIAMINE 100 MG in DEXTROSE 5 % IN WATER 50 ML 204 ML IV (23:39)
[2020-07-29 23:45] LABS: Add Manual Diff / Slide Review NO; Basophils Absolute Auto 100 /uL (0-100); Basophils Percent Auto 0.8 % (0-2); Eosinophils Absolute Auto 100 /uL (0-450); Eosinophils Percent Auto 1.3 % (2-4); Hematocrit 48.2 % (41-53); Hemoglobin 16.8 g/dL (13.5-17.5); Lymphocytes Absolute Auto 2600 /uL (1100-4500); Lymphocytes Percent Auto 37.7 % (25-40); Mean Corpuscular HGB Conc 34.9 % (30-36); Mean Corpuscular Hemoglobin 34.6 PG (26-34); Mean Corpuscular Volume 99.2 fL (80-100); Monocytes Absolute Auto 700 /uL (0-900); Monocytes Percent Auto 9.5 % (3-14); Neutrophils Absolute Auto 3500 /uL (1500-7000); Neutrophils Percent Auto 50.7 % (50-75); Platelet Count 226 X10^3/uL (150-400); Red Blood Cell Count 4.86 X10^6/uL (4.5-5.9); Red Cell Distribution Width 12.6 % (11.6-14.8); White Blood Cell Count 6.9 X10^3/uL (4.5-11.0)
--- NOTE | 2020-07-29 23:46 | PC.NURSE ---
Pt asked me to phone his parents, Bruno and Sasha, at [phone] to tell them that he is safe. Message left per pt request.
[2020-07-29 23:53] LABS: Alanine Aminotransferase 37 IU/L (<50); Albumin 4.5 g/dL (3.5-5.0); Albumin Globulin Ratio 1.5 (1.0-2.8); Alkaline Phosphatase 64 U/L (38-126); Aspartate Aminotransferase 39 IU/L (17-59); BUN Creatinine Ratio 13.5 (6-22); Bilirubin Total 0.5 mg/dL (0.2-1.3); Bilirubin Unconjugated 0.3 mg/dL (0.0-1.1); Blood Urea Nitrogen 15 mg/dL (9-20); Calcium 8.7 mg/dL (8.4-10.2); Carbon Dioxide 29 mmol/L (22-32); Chloride 108 mmol/L (98-107); Estimated Glomerular Filt Rate > 60.0 mL/min (>60); Glucose 107 mg/dL (70-100); HEMOLYSIS 19 (0-50); Lipase 85 U/L (23-300); Magnesium 2.1 mg/dL (1.6-2.3); Potassium 3.9 mmol/L (3.4-5.1); Sodium 145 mmol/L (137-145); Total Protein 7.5 g/dL (6.3-8.2)
[2020-07-30] VITALS (10 sets, daily range): BP systolic 121; BP diastolic 59; PULSE 78–100; O2SAT 94–100
--- NOTE | 2020-07-30 00:16 | ED_ITS ---
HPI - Alcohol General Chief Complaint: Toxicology Problem Stated Complaint: ALCOHOL WITHDRAWALS Time Seen by Provider: 07/29/20 22:58 Source: patient Mode of arrival: Ambulatory History of Present Illness HPI narrative: 25-year-old male smoker with extensive history of alcohol abuse presents with a chief complaint of desire for medical clearance prior to going to alcohol detox. He has been drinking upwards of 24 beers and a few shots of liquor daily and had his last drink about 7 hours ago. He feels a bit agitated and anxious but denies any headache, blurred vision, chest pain, auditory or visual hallucinations. He has had withdrawals on multiple occasions and is even had seizures in the past. MD complaint: alcohol withdrawal, alcohol dependence and desires rehab Last drink: hours (ago) Chronic alcohol use: Yes Previous visits for alcohol intoxication: Yes Recent trauma: No Treatments prior to arrival: none Related Data Previous Rx's Medication Instructions Recorded lorazepam [Ativan] 1 mg PO DAILY PRN #20 tab 03/17/20 lorazepam 1 mg PO DAILY PRN #20 tab 04/09/20 lorazepam [Ativan] See Rx Instructions .ROUTE 07/30/20 .COMPLEX PRN #19 tab Allergies Allergy/AdvReac Type Severity Reaction Status Date / Time No Known Drug Allergies Allergy Verified 05/03/20 11:37 Review of Systems Constitutional Constitutional: Denies chills, Denies fatigue, Denies fever(s), Denies frequent falls, Denies lethargy and Denies weakness Eyes Eyes: Denies change in vision, Denies eye discharge, Denies irritation and Denies loss of vision ENT Ears, Nose, Mouth, and Throat: Denies change in voice, Denies dizziness, Denies neck pain, Denies sore throat and Denies throat swelling Cardiovascular Cardiovascular: Denies chest pain, Denies irregular heart rhythm, Denies lightheadedness, Denies palpitations, Denies dyspnea, Denies dyspnea on exertion and Denies orthopnea Respiratory Respiratory: Denies cough, Denies dyspnea, Denies dyspnea on exertion and Denies wheezing Gastrointestinal Gastrointestinal: Denies abdominal pain, Denies change in bowel habits, Denies diarrhea, Denies nausea and Denies vomiting Musculoskeletal Musculoskeletal: Denies neck pain and Denies numbness Integumentary/Breasts Skin/Breast: Denies pruritus, Denies erythema, Denies rash and Denies wounds Neurologic Neurologic: Denies behavioral changes, Denies confusion, Denies dizziness, Denies frequent falls, Denies loss of vision, Denies numbness and Denies weakness Comments: agitation, anxiety Psychiatric Psychiatric: Denies anxiety, Denies behavioral changes, Denies confusion, Denies depression, Denies homicidal ideation and Denies suicidal ideation Endocrine Endocrine: Denies fatigue, Denies flushing and Denies palpitations Hematologic/Lymphatic Hematologic/Lymphatic: Denies easy bruising Allergic/Immunologic Allergic/Immunologic: Denies urticaria, Denies throat swelling and Denies wheezing Patient History Medical History (Updated 07/30/20 @ 03:50 by Jose Raul Yanez DO) Alcohol abuse Cervical radiculopathy Elevated transaminase level Hypokalemia Neck pain on right side Surgical History No history of previous surgery Family History Father Age: 54 Diabetes mellitus Hypertension Social History Smoking Status: Current every day smoker substance use type: marijuana additional social history: Previous heavy EtOH use, occasional THC Smoking Status: Current every day smoker tobacco type: cigarettes alcohol intake frequency: 3 or more drinks per day Alcohol type: beer and hard liquor Substance Use Type: marijuana and painkillers Exam Narrative Exam Narrative: GENERAL: [25] year old patient appears stated age. Well-nourish ed, well-developed patient, in mild distress. A bit agitated and anxious HEAD: Atraumatic. Normocephalic. EYES: Pupils equal round and reactive. Extraocular motions intact. No scleral icterus. No injection or drainage. ENT: Nose without bleeding, purulent drainage. Throat without erythema, tonsil lar hypertrophy or exudate. Airway patent. NECK: Trachea midline. Non tender CARDIOVASCULAR: Regular rate and rhythm without murmurs, gallops, or rubs. RESPIRATORY: Clear to auscultation. Breath sounds equal bilaterally. No wheezes, rales, or rhonchi. GASTROINTESTINAL: Abdomen soft, non-tender, nondistended. EXTREMITIES: No edema or joint tenderness. BACK: Nontender without deformity or crepitance. No flank tenderness. NEURO: AOx3. SKIN: No rash or erythema of visible areas Initial Vital Signs Initial Vital Signs: Vital Signs Temperature 98.5 F 07/29/20 23:11 Pulse Rate 102 H 07/29/20 23:11 Respiratory Rate 118 H 07/29/20 23:11 Blood Pressure 122/71 07/29/20 23:11 Pulse Oximetry 95 07/29/20 23:11 Course Course Course Narrative: [facility] for Alcohol Withdrawal from [employer] on 07/30/2020 All calculations should be rechecked by clinician prior to use RESULT SUMMARY: 6 points Patients with scores ?8 typically do not require medication for withdrawal. INPUTS: Nausea/vomiting ?> 0 = No nausea and no vomiting Tremor ?> 2 = (More severe symptoms) Paroxysmal sweats ?> 0 = No sweat visible Anxiety ?> 2 = (More severe symptoms) Agitation ?> 2 = (More severe symptoms) Tactile disturbances ?> 0 = None Auditory disturbances ?> 0 = Not present Visual disturbances ?> 0 = Not present Headache/fullness in head ?> 0 = Not Present Orientation/clouding of sensorium ?> 0 = Oriented, can do serial additions Orders Ordered: ED Orders 07/29/20 23:09 Urine Drug Screen, Rapid Stat 07/29/20 23:30 Complete Blood Count AUTO DIFF Stat Comprehensive Metabolic Panel Stat Ethanol (ETOH) Stat Hepatic (Liver) Panel Stat Lipase Stat Magnesium Stat 07/30/20 00:10 COVID19 Stat 07/30/20 01:25 Ethanol (ETOH) Stat Discontinued Medications Sodium Chloride (Normal Saline 0.9%) 1,000 mls @ 1,000 mls/hr IV BOLUS ONE Stop: 07/30/20 00:23 Last Infusion: 07/30/20 00:34 Dose: 0 mls/hr Documented by: Admin: 07/29/20 23:33 Dose: 1,000 mls/hr Documented by: TAYA Thiamine HCl 100 mg/ Dextrose 51 mls @ 204 mls/hr IV NOW ONE Stop: 07/29/20 23:25 Last Infusion: 07/30/20 00:01 Dose: 0 mls/hr Documented by: Admin: 07/29/20 23:39 Dose: 204 mls/hr Documented by: TAYA Lorazepam (Lorazepam 2 Mg/Ml Inj) 2 mg IV NOW ONE Stop: 07/29/20 23:25 Last Admin: 07/29/20 23:33 Dose: 2 mg Documented by: TAYA Lorazepam (Lorazepam 0.5 Mg Tablet) 1 mg PO NOW ONE Stop: 07/30/20 04:15 Reevaluation(s) Reevaluation #1: patient resting comfortably. Repeat Etoh below 250. He is medically cleared for alcohol treatment Vital Signs Vital signs: Vital Signs - 8 hr 07/29/20 23:11 07/29/20 23:18 07/29/20 23:30 Temperature 98.5 F Pulse Rate 102 H 111 H 89 Respiratory Rate 118 H Blood Pressure 122/71 Pulse Oximetry 95 98 96 07/30/20 00:00 07/30/20 00:30 07/30/20 01:00 Temperature Pulse Rate 100 H 99 H 99 H Respiratory Rate Blood Pressure Pulse Oximetry 95 98 100 07/30/20 01:30 07/30/20 02:00 07/30/20 02:30 Temperature Pulse Rate 90 93 H 78 Respiratory Rate Blood Pressure Pulse Oximetry 99 95 95 07/30/20 03:00 07/30/20 03:30 07/30/20 04:00 Temperature Pulse Rate 94 H 85 86 Respiratory Rate Blood Pressure Pulse Oximetry 97 95 94 07/30/20 04:03 Temperature Pulse Rate 83 Respiratory Rate Blood Pressure 121/59 L Pulse Oximetry 97 MDM - Alcohol Lab Data Result diagrams: 07/29/20 23:30 07/29/20 23:30 Labs: Lab Results 07/29/20 07/29/20 07/30/20 Range/Units 23:30 23:30 00:10 WBC 6.9 (4.5-11.0) X10^3/uL RBC 4.86 (4.5-5.9) X10^6/uL Hgb 16.8 (13.5-17.5) g/dL Hct 48.2 (41-53) % MCV 99.2 (80-100) fL MCH 34.6 H (26-34) PG MCHC 34.9 (30-36) % RDW 12.6 (11.6-14.8) % Plt Count 226 (150-400) X10^3/uL Neut % (Auto) 50.7 (50-75) % Lymph % (Auto) 37.7 (25-40) % [place] % (Auto) 9.5 (3-14) % Eos % (Auto) 1.3 L (2-4) % Baso % (Auto) 0.8 (0-2) % Neut # (Auto) 3500 (0933-8355) /uL Lymph # (Auto) 2600 (9411-3032) /uL [place] # (Auto) 700 (0-900) /uL Eos # (Auto) 100 (0-450) /uL Baso # (Auto) 100 (0-100) /uL Sodium 145 (137-145) mmol/L Potassium 3.9 (3.4-5.1) mmol/L Chloride 108 H (98-107) mmol/L Carbon Dioxide 29 (22-32) mmol/L BUN 15 (9-20) mg/dL Creatinine 1.11 (0.66-1.25) mg/dL Estimated GFR > 60.0 (>60) mL/min BUN/Creatinine Ratio 13.5 (6-22) Glucose 107 H (70-100) mg/dL Calcium 8.7 (8.4-10.2) mg/dL Magnesium 2.1 (1.6-2.3) mg/dL Total Bilirubin 0.5 (0.2-1.3) mg/dL Conjugated Bilirubin 0.0 (0.0-0.3) md/dL Unconjugated Bilirubin 0.3 (0.0-1.1) mg/dL AST 39 (17-59) IU/L ALT 37 (<50) IU/L Alkaline Phosphatase 64 (38-126) U/L Total Protein 7.5 (6.3-8.2) g/dL Albumin 4.5 (3.5-5.0) g/dL Globulin 3.0 (1.7-4.1) g/dL Albumin/Globulin Ratio 1.5 (1.0-2.8) Lipase 85 (23-300) U/L U Opiates 300ng/mL cut (Negative) Ur Oxycodone Screen (Negative) Urine Methadone Screen (Negative) Ur Barbiturates Screen (Negative) U Tricyclic Antidepress (Negative) Ur Phencyclidine Scrn (Negative) Ur Amphetamines Screen (Negative) U Methamphetamines Scrn (Negative) Ur MDMA Scrn (Ecstasy) (Negative) U Benzodiazepines Scrn (Negative) Urine Cocaine Screen (Negative) U Marijuana (THC) Screen (Negative) Ethyl Alcohol 279 H ( - 10) mg/dL COVID-19 PCR Negative (Negative) 07/30/20 07/30/20 Range/Units 01:25 02:50 WBC (4.5-11.0) X10^3/uL RBC (4.5-5.9) X10^6/uL Hgb (13.5-17.5) g/dL Hct (41-53) % MCV (80-100) fL MCH (26-34) PG MCHC (30-36) % RDW (11.6-14.8) % Plt Count (150-400) X10^3/uL Neut % (Auto) (50-75) % Lymph % (Auto) (25-40) % [place] % (Auto) (3-14) % Eos % (Auto) (2-4) % Baso % (Auto) (0-2) % Neut # (Auto) (9567-1357) /uL Lymph # (Auto) (5960-8433) /uL [place] # (Auto) (0-900) /uL Eos # (Auto) (0-450) /uL Baso # (Auto) (0-100) /uL Sodium (137-145) mmol/L Potassium (3.4-5.1) mmol/L Chloride (98-107) mmol/L Carbon Dioxide (22-32) mmol/L BUN (9-20) mg/dL Creatinine (0.66-1.25) mg/dL Estimated GFR (>60) mL/min BUN/Creatinine Ratio (6-22) Glucose (70-100) mg/dL Calcium (8.4-10.2) mg/dL Magnesium (1.6-2.3) mg/dL Total Bilirubin (0.2-1.3) mg/dL Conjugated Bilirubin (0.0-0.3) md/dL Unconjugated Bilirubin (0.0-1.1) mg/dL AST (17-59) IU/L ALT (<50) IU/L Alkaline Phosphatase (38-126) U/L Total Protein (6.3-8.2) g/dL Albumin (3.5-5.0) g/dL Globulin (1.7-4.1) g/dL Albumin/Globulin Ratio (1.0-2.8) Lipase (23-300) U/L U Opiates 300ng/mL cut Negative (Negative) Ur Oxycodone Screen Negative (Negative) Urine Methadone Screen Negative (Negative) Ur Barbiturates Screen Negative (Negative) U Tricyclic Antidepress Negative (Negative) Ur Phencyclidine Scrn Negative (Negative) Ur Amphetamines Screen Negative (Negative) U Methamphetamines Scrn Negative (Negative) Ur MDMA Scrn (Ecstasy) Negative (Negative) U Benzodiazepines Scrn Negative (Negative) Urine Cocaine Screen Negative (Negative) U Marijuana (THC) Screen Positive H (Negative) Ethyl Alcohol 238 H ( - 10) mg/dL COVID-19 PCR (Negative) Discharge Plan Departure Patient Disposition: Home Clinical Impression: Alcohol withdrawal syndrome Qualifiers: Complication of substance-induced condition: uncomplicated Qualified Code(s): F10.230 - Alcohol dependence with withdrawal, uncomplicated Instructions: DI for Alcohol Use Disorder Activity Restrictions/Additional Instructions: *You have been diagnosed with [ alcohol dependence and early withdrawal ] *What to do: *Take medications as directed *Follow up with your primary care provider in 2-3 days, call for an appointment. Let them know you were seen in the Emergency Department and that we ask that you be seen in follow up *Return to ER if you should have any new, worsening or concerning symptoms Prescriptions: New lorazepam [Ativan] 1 mg tablet See Rx Instructions .ROUTE .COMPLEX PRN (Reason: alcohol withdrawal) Qty: 19 RF: 0 No Action lorazepam [Ativan] 1 mg tablet 1 mg PO DAILY PRN (Reason: alcohol withdrawal) Qty: 20 RF: 0 lorazepam 1 mg tablet 1 mg PO DAILY PRN (Reason: alcohol withdrawal) Qty: 20 RF: 0 Referrals: Dave Mcleod MD [Primary Care Provider] -
[2020-07-30 00:29] LABS: COVID19 -Nasal RAPID Negative (Negative)
[2020-07-30 01:03] LABS: Ethanol (ETOH) 279 mg/dL
[2020-07-30 01:43] LABS: Ethanol (ETOH) 238 mg/dL
[2020-07-30 03:04] LABS: UR Morphine/Opiate cutoff 300 Negative (Negative); Ur Creatinine 50 (Normal); Ur Specific Gravity 1.025 (Normal); Urine Amphetamines Negative (Negative); Urine Barbiturates Negative (Negative); Urine Benzodiazepines Negative (Negative); Urine Cocaine Negative (Negative); Urine MDMA Negative (Negative); Urine Methadone Negative (Negative); Urine Methamphetamines Negative (Negative); Urine Oxycodone Negative (Negative); Urine Phencyclidine Negative (Negative); Urine Tetrahydrocannabinol Positive (Negative); Urine Tricyclic Antidepressant Negative (Negative); Urine pH 5 (Normal)
[2020-07-30] MEDS: LORazepam 0.5 MG TABLET 1 MG PO (04:18)
== END 2020-07-30 04:23 | disposition home or self-care (01) ==
PROVIDERS: Emergency Provider Emergency Medicine; PCP Internal Medicine
DX: F10.229 Alcohol dependence with intoxication, unspecified (principal); F10.239 Alcohol dependence with withdrawal, unspecified; Y90.8 Blood alcohol level of 240 mg/100 ml or more
CPT/HCPCS: 36415; 80053; 80076; 80305; 80320; 83690; 83735; 85025; 87635; 96361; 96374; 99284; J2060

== ENCOUNTER 2020-08-02 00:12 | Emergency (ER) | payer OTHER, MEDICAID, SELFPAY ==
[2020-08-02] VITALS (7 sets, daily range): BP systolic 126–138; BP diastolic 61–68; PULSE 100–120; RESP 19–27; TEMP 36.4; O2SAT 97–100
[2020-08-02 00:38] LABS: UR Morphine/Opiate cutoff 300 Negative (Negative); Ur Creatinine 20 (Normal); Ur Specific Gravity 1.025 (Normal); Urine Amphetamines Negative (Negative); Urine Barbiturates Negative (Negative); Urine Benzodiazepines Negative (Negative); Urine Cocaine Negative (Negative); Urine MDMA Negative (Negative); Urine Methadone Negative (Negative); Urine Methamphetamines Negative (Negative); Urine Oxycodone Negative (Negative); Urine Phencyclidine Negative (Negative); Urine Tetrahydrocannabinol Positive (Negative); Urine Tricyclic Antidepressant Negative (Negative); Urine pH 5 (Normal)
[2020-08-02 00:52] LABS: Add Manual Diff / Slide Review NO; Basophils Absolute Auto 100 /uL (0-100); Basophils Percent Auto 0.7 % (0-2); Eosinophils Absolute Auto 200 /uL (0-450); Eosinophils Percent Auto 2.8 % (2-4); Hematocrit 48.4 % (41-53); Hemoglobin 17.5 g/dL (13.5-17.5); Lymphocytes Absolute Auto 2600 /uL (1100-4500); Lymphocytes Percent Auto 36.3 % (25-40); Mean Corpuscular HGB Conc 36.2 % (30-36); Mean Corpuscular Hemoglobin 35.5 PG (26-34); Mean Corpuscular Volume 98.1 fL (80-100); Monocytes Absolute Auto 500 /uL (0-900); Monocytes Percent Auto 7.1 % (3-14); Neutrophils Absolute Auto 3800 /uL (1500-7000); Neutrophils Percent Auto 53.1 % (50-75); Platelet Count 213 X10^3/uL (150-400); Red Blood Cell Count 4.94 X10^6/uL (4.5-5.9); Red Cell Distribution Width 12.6 % (11.6-14.8); White Blood Cell Count 7.2 X10^3/uL (4.5-11.0)
--- NOTE | 2020-08-02 01:00 | ED.ALCOHOL ---
HPI - Alcohol General Chief Complaint: Toxicology Problem Stated Complaint: alcohol withdrawl Time Seen by Provider: 08/02/20 00:13 Source: patient Mode of arrival: Ambulatory Limitations: no limitations History of Present Illness HPI narrative: 25-year-old male smoker with extensive history of alcohol abuse presents with a chief complaint of desire for medical clearance prior to going to alcohol detox. He was recently seen under similar circumstances and went to [facility]. He had an issue that he needed to settle at home and unfortunately had to leave prior to his program being complete. He went home and started drinking again, perhaps a half gallon of whiskey today, with last consumption about 3-4 hours prior to his arrival. He denies any current withdrawal symptoms. He's been through significant withdrawals in the past and has even had seizures. He denies fever, chills, N/V/D. He's had no known exposure to COVID. He's hoping to get back to [facility] MD complaint: alcohol intoxication Last drink: just prior to this admission Chronic alcohol use: Yes Previous visits for alcohol intoxication: Yes Recent trauma: No Associated symptoms: denies other symptoms Treatments prior to arrival: none Related Data Previous Rx's Medication Instructions Recorded lorazepam [Ativan] 1 mg PO DAILY PRN #20 tab 03/17/20 lorazepam 1 mg PO DAILY PRN #20 tab 04/09/20 lorazepam [Ativan] See Rx Instructions .ROUTE 07/30/20 .COMPLEX PRN #19 tab lorazepam [Ativan] See Rx Instructions .ROUTE 08/02/20 .COMPLEX PRN #19 tab Allergies Allergy/AdvReac Type Severity Reaction Status Date / Time No Known Drug Allergies Allergy Verified 05/03/20 11:37 Review of Systems Constitutional Constitutional: Denies chills, Denies fatigue, Denies fever(s), Denies frequent falls, Denies lethargy and Denies weakness Eyes Eyes: Denies change in vision, Denies eye discharge, Denies irritation and Denies loss of vision ENT Ears, Nose, Mouth, and Throat: Denies change in voice, Denies dizziness, Denies neck pain, Denies sore throat and Denies throat swelling Cardiovascular Cardiovascular: Denies chest pain, Denies irregular heart rhythm, Denies lightheadedness, Denies palpitations, Denies dyspnea, Denies dyspnea on exertion and Denies orthopnea Respiratory Respiratory: Denies cough, Denies dyspnea, Denies dyspnea on exertion and Denies wheezing Gastrointestinal Gastrointestinal: Denies abdominal pain, Denies change in bowel habits, Denies diarrhea, Denies nausea and Denies vomiting Musculoskeletal Musculoskeletal: Denies neck pain and Denies numbness Integumentary/Breasts Skin/Breast: Denies pruritus, Denies erythema, Denies rash and Denies wounds Neurologic Neurologic: Denies behavioral changes, Denies confusion, Denies dizziness, Denies frequent falls, Denies loss of vision, Denies numbness and Denies weakness Psychiatric Psychiatric: Denies anxiety, Denies behavioral changes, Denies confusion, Denies depression, Denies homicidal ideation and Denies suicidal ideation Endocrine Endocrine: Denies fatigue, Denies flushing and Denies palpitations Hematologic/Lymphatic Hematologic/Lymphatic: Denies easy bruising Allergic/Immunologic Allergic/Immunologic: Denies urticaria, Denies throat swelling and Denies wheezing Patient History Medical History (Updated 08/02/20 @ 01:35 by Jose Raul Yanez DO) Alcohol abuse Cervical radiculopathy Elevated transaminase level Hypokalemia Neck pain on right side Surgical History No history of previous surgery Family History Father Age: 54 Diabetes mellitus Hypertension Social History Smoking Status: Current every day smoker substance use type: marijuana additional social history: Previous heavy EtOH use, occasional THC Smoking Status: Current every day smoker tobacco type: cigarettes alcohol intake frequency: 3 or more drinks per day Alcohol type: beer and hard liquor Substance Use Type: marijuana and painkillers Exam Narrative Exam Narrative: GENERAL: [25] year old patient appears stated age. Well-nourished, well-developed patient, in mild distress. HEAD: Atraumatic. Normocephalic. EYES: Pupils equal round and reactive. Extraocular motions intact. No scleral icterus. No injection or drainage. ENT: Nose without bleeding, purulent drainage. Throat without erythema, tonsillar hypertrophy or exudate. Airway patent. NECK: Trachea midline. Non tender CARDIOVASCULAR: Regular rate and rhythm without murmurs, gallops, or rubs. RESPIRATORY: Clear to auscultation. Breath sounds equal bilaterally. No wheezes, rales, or rhonchi. GASTROINTESTINAL: Abdomen soft, non-tender, nondistended. EXTREMITIES: No edema or joint tenderness. BACK: Nontender without deformity or crepitance. No flank tenderness. NEURO: AOx3. SKIN: No rash or erythema of visible areas Initial Vital Signs Initial Vital Signs: Vital Signs Temperature 97.6 F 08/02/20 00:15 Pulse Rate 120 H 08/02/20 00:15 Respiratory Rate 20 08/02/20 00:15 Blood Pressure 138/61 08/02/20 00:15 Pulse Oximetry 98 08/02/20 00:15 Course Course Course Narrative: patient has been medically cleared for alcohol detox after discussion with [facility], they request two doses of Ativan 2mg. I have ordered this and hand wrote an Rx for the administration of these meds per their request and in accordance with our traditional Ativan taper. Orders Ordered: ED Orders 08/02/20 EKG-12 Lead Stat 08/02/20 00:25 Urinalysis and Microscopic Stat Urine Drug Screen, Rapid Stat 08/02/20 00:45 Complete Blood Count AUTO DIFF Stat Comprehensive Metabolic Panel Stat Ethanol (ETOH) Stat Hepatic (Liver) Panel Stat Lipase Stat Magnesium Stat 08/02/20 00:50 COVID19 Stat 08/02/20 02:50 EKG-12 Lead Routine Discontinued Medications Al Hydrox/Mg Hydrox/Simethicone 20 ml/ Lidocaine HCl 15 ml 0 ml PO NOW ONE Stop: 08/02/20 01:32 Last Admin: 08/02/20 01:47 Dose: 35 ml Documented by: CINTHYA Lorazepam (Lorazepam 2 Mg/Ml Inj) 1 mg IV NOW ONE Stop: 08/02/20 01:32 Last Admin: 08/02/20 01:46 Dose: 1 mg Documented by: CINTHYA Lorazepam (Lorazepam 0.5 Mg Tablet) 1 mg PO NOW ONE Stop: 08/02/20 01:38 Last Admin: 08/02/20 02:32 Dose: 1 mg Documented by: CINTHYA Lorazepam (Lorazepam 0.5 Mg Tablet) 1 mg PO NOW ONE Stop: 08/02/20 02:58 Last Admin: 08/02/20 03:04 Dose: 1 mg Documented by: VIOLETTA Lorazepam (Lorazepam 0.5 Mg Tablet) 1 mg PO NOW ONE Stop: 08/02/20 02:58 Last Admin: 08/02/20 03:04 Dose: 1 mg Documented by: VIOLETTA Lorazepam (Lorazepam 0.5 Mg Tablet) 1 mg PO NOW ONE Stop: 08/02/20 02:59 Last Admin: 08/02/20 03:04 Dose: 1 mg Documented by: VIOLETTA Pantoprazole Sodium (Pantoprazole 40 Mg Vial) 40 mg IV NOW ONE Stop: 08/02/20 01:32 Last Admin: 08/02/20 01:48 Dose: 40 mg Documented by: CINTHYA Vital Signs Vital signs: Vital Signs - 8 hr 08/02/20 00:15 08/02/20 00:46 08/02/20 00:47 Temperature 97.6 F Pulse Rate 120 H 106 H 106 H Respiratory Rate 20 23 24 Blood Pressure 138/61 126/68 126/68 Pulse Oximetry 98 99 98 08/02/20 01:00 08/02/20 01:30 08/02/20 02:00 Temperature Pulse Rate 104 H 100 H 115 H Respiratory Rate 24 19 27 H Blood Pressure Pulse Oximetry 97 100 98 08/02/20 02:30 Temperature Pulse Rate 113 H Respiratory Rate 20 Blood Pressure 126/68 Pulse Oximetry 99 MDM - Alcohol Lab Data Result diagrams: 08/02/20 00:45 08/02/20 00:45 Labs: Lab Results 08/02/20 08/02/20 08/02/20 Range/Units 00:25 00:25 00:45 WBC 7.2 (4.5-11.0) X10^3/uL RBC 4.94 (4.5-5.9) X10^6/uL Hgb 17.5 (13.5-17.5) g/dL Hct 48.4 (41-53) % MCV 98.1 (80-100) fL MCH 35.5 H (26-34) PG MCHC 36.2 H (30-36) % RDW 12.6 (11.6-14.8) % Plt Count 213 (150-400) X10^3/uL Neut % (Auto) 53.1 (50-75) % Lymph % (Auto) 36.3 (25-40) % [place] % (Auto) 7.1 (3-14) % Eos % (Auto) 2.8 (2-4) % Baso % (Auto) 0.7 (0-2) % Neut # (Auto) 3800 (3369-8489) /uL Lymph # (Auto) 2600 (1251-1207) /uL [place] # (Auto) 500 (0-900) /uL Eos # (Auto) 200 (0-450) /uL Baso # (Auto) 100 (0-100) /uL Sodium (137-145) mmol/L Potassium (3.4-5.1) mmol/L Chloride (98-107) mmol/L Carbon Dioxide (22-32) mmol/L BUN (9-20) mg/dL Creatinine (0.66-1.25) mg/dL Estimated GFR (>60) mL/min BUN/Creatinine Ratio (6-22) Glucose (70-100) mg/dL Calcium (8.4-10.2) mg/dL Magnesium (1.6-2.3) mg/dL Total Bilirubin (0.2-1.3) mg/dL Conjugated Bilirubin (0.0-0.3) md/dL Unconjugated Bilirubin (0.0-1.1) mg/dL AST (17-59) IU/L ALT (<50) IU/L Alkaline Phosphatase (38-126) U/L Total Protein (6.3-8.2) g/dL Albumin (3.5-5.0) g/dL Globulin (1.7-4.1) g/dL Albumin/Globulin Ratio (1.0-2.8) Lipase (23-300) U/L Urine Color Yellow Urine Appearance Clear Urine pH 5.0 (4.5-8.0) Ur Specific [place] 1.020 (1.000-1.035) Urine Protein Negative (Negative) Urine Glucose (UA) Negative (Negative) g/dL Urine Ketones Negative (NEGATIVE) Urine Occult Blood Negative (Negative) Urine Nitrate Negative (Negative) Urine Bilirubin Negative (NEGATIVE) Urine Urobilinogen 0.2 (0.2) E.U./dL Ur Leukocyte Esterase Negative (NEGATIVE) Urine RBC 0-1/hpf (0-5/HPF) Urine WBC 0-1/hpf (0-5/HPF) Ur Squamous Epith Cells 0-1 /hpf (0-5/HPF) Urine Bacteria None seen (None) Ur Culture Indicated? Cult not indicated U Opiates 300ng/mL cut Negative (Negative) Ur Oxycodone Screen Negative (Negative) Urine Methadone Screen Negative (Negative) Ur Barbiturates Screen Negative (Negative) U Tricyclic Antidepress Negative (Negative) Ur Phencyclidine Scrn Negative (Negative) Ur Amphetamines Screen Negative (Negative) U Methamphetamines Scrn Negative (Negative) Ur MDMA Scrn (Ecstasy) Negative (Negative) U Benzodiazepines Scrn Negative (Negative) Urine Cocaine Screen Negative (Negative) U Marijuana (THC) Screen Positive H (Negative) Ethyl Alcohol ( - 10) mg/dL COVID-19 PCR (Negative) 08/02/20 08/02/20 Range/Units 00:45 00:50 WBC (4.5-11.0) X10^3/uL RBC (4.5-5.9) X10^6/uL Hgb (13.5-17.5) g/dL Hct (41-53) % MCV (80-100) fL MCH (26-34) PG MCHC (30-36) % RDW (11.6-14.8) % Plt Count (150-400) X10^3/uL Neut % (Auto) (50-75) % Lymph % (Auto) (25-40) % [place] % (Auto) (3-14) % Eos % (Auto) (2-4) % Baso % (Auto) (0-2) % Neut # (Auto) (4210-9704) /uL Lymph # (Auto) (9809-4389) /uL [place] # (Auto) (0-900) /uL Eos # (Auto) (0-450) /uL Baso # (Auto) (0-100) /uL Sodium 146 H (137-145) mmol/L Potassium 4.1 (3.4-5.1) mmol/L Chloride 110 H (98-107) mmol/L Carbon Dioxide 27 (22-32) mmol/L BUN 14 (9-20) mg/dL Creatinine 0.94 (0.66-1.25) mg/dL Estimated GFR > 60.0 (>60) mL/min BUN/Creatinine Ratio 14.9 (6-22) Glucose 124 H (70-100) mg/dL Calcium 8.6 (8.4-10.2) mg/dL Magnesium 2.5 H (1.6-2.3) mg/dL Total Bilirubin 0.5 (0.2-1.3) mg/dL Conjugated Bilirubin 0.0 (0.0-0.3) md/dL Unconjugated Bilirubin 0.4 (0.0-1.1) mg/dL AST 54 (17-59) IU/L ALT 51 H (<50) IU/L Alkaline Phosphatase 74 (38-126) U/L Total Protein 7.7 (6.3-8.2) g/dL Albumin 4.5 (3.5-5.0) g/dL Globulin 3.2 (1.7-4.1) g/dL Albumin/Globulin Ratio 1.4 (1.0-2.8) Lipase 139 D (23-300) U/L Urine Color Urine Appearance Urine pH (4.5-8.0) Ur Specific [place] (1.000-1.035) Urine Protein (Negative) Urine Glucose (UA) (Negative) g/dL Urine Ketones (NEGATIVE) Urine Occult Blood (Negative) Urine Nitrate (Negative) Urine Bilirubin (NEGATIVE) Urine Urobilinogen (0.2) E.U./dL Ur Leukocyte Esterase (NEGATIVE) Urine RBC (0-5/HPF) Urine WBC (0-5/HPF) Ur Squamous Epith Cells (0-5/HPF) Urine Bacteria (None) Ur Culture Indicated? U Opiates 300ng/mL cut (Negative) Ur Oxycodone Screen (Negative) Urine Methadone Screen (Negative) Ur Barbiturates Screen (Negative) U Tricyclic Antidepress (Negative) Ur Phencyclidine Scrn (Negative) Ur Amphetamines Screen (Negative) U Methamphetamines Scrn (Negative) Ur MDMA Scrn (Ecstasy) (Negative) U Benzodiazepines Scrn (Negative) Urine Cocaine Screen (Negative) U Marijuana (THC) Screen (Negative) Ethyl Alcohol 232 H ( - 10) mg/dL COVID-19 PCR Negative (Negative) Discharge Plan Departure Patient Disposition: Home Clinical Impression: Alcoholic intoxication Qualifiers: Complication of substance-induced condition: uncomplicated Qualified Code(s): F10.920 - Alcohol use, unspecified with intoxication, uncomplicated Instructions: DI for Alcohol Use Disorder Activity Restrictions/Additional Instructions: Please proceed directly to [facility] Prescriptions: New lorazepam [Ativan] 1 mg tablet See Rx Instructions .ROUTE .COMPLEX PRN (Reason: alcohol withdrawal) Qty: 19 RF: 0 No Action lorazepam [Ativan] 1 mg tablet 1 mg PO DAILY PRN (Reason: alcohol withdrawal) Qty: 20 RF: 0 lorazepam 1 mg tablet 1 mg PO DAILY PRN (Reason: alcohol withdrawal) Qty: 20 RF: 0 lorazepam [Ativan] 1 mg tablet See Rx Instructions .ROUTE .COMPLEX PRN (Reason: alcohol withdrawal) Qty: 19 RF: 0 Referrals: Dave Mcleod MD [Primary Care Provider] -
[2020-08-02 01:01] LABS: Alanine Aminotransferase 51 IU/L (<50); Albumin 4.5 g/dL (3.5-5.0); Albumin Globulin Ratio 1.4 (1.0-2.8); Alkaline Phosphatase 74 U/L (38-126); Aspartate Aminotransferase 54 IU/L (17-59); BUN Creatinine Ratio 14.9 (6-22); Bilirubin Total 0.5 mg/dL (0.2-1.3); Bilirubin Unconjugated 0.4 mg/dL (0.0-1.1); Blood Urea Nitrogen 14 mg/dL (9-20); Calcium 8.6 mg/dL (8.4-10.2); Carbon Dioxide 27 mmol/L (22-32); Chloride 110 mmol/L (98-107); Estimated Glomerular Filt Rate > 60.0 mL/min (>60); Ethanol (ETOH) 232 mg/dL; Globulin 3.2 g/dL (1.7-4.1); Glucose 124 mg/dL (70-100); HEMOLYSIS 18 (0-50); Lipase 139 U/L (23-300); Magnesium 2.5 mg/dL (1.6-2.3); Potassium 4.1 mmol/L (3.4-5.1); Sodium 146 mmol/L (137-145); Total Protein 7.7 g/dL (6.3-8.2)
[2020-08-02 01:09] LABS: Bacteria Urine None Seen
[2020-08-02 01:15] LABS: COVID19 -Nasal RAPID Negative (Negative)
[2020-08-02 01:18] LABS: Appearance Urine UA CLEAR; Bilirubin Urine UA NEGATIVE (NEGATIVE); Color Urine UA YELLOW; Glucose Urine UA NEGATIVE (Negative); Ketones Urine UA NEGATIVE (NEGATIVE); Leukocyte Esterase Urine UA NEGATIVE (NEGATIVE); Nitrite Urine UA NEGATIVE (Negative); Occult Blood Urine UA NEGATIVE (Negative); Protein Urine UA NEGATIVE (Negative); Urobilinogen Urine UA 0.2 E.U./dL (0.2)
[2020-08-02 01:35] LABS: Culture Indicated Urine Cult Not Indicated; RBC Urine 0-1/HPF (0-5/HPF); Squamous Epithelial Cell Urine 0-1 /HPF (0-5/HPF); WBC Urine 0-1/HPF (0-5/HPF)
[2020-08-02] MEDS: LORazepam 2 MG/ML INJ 1 MG IV (01:46)
[2020-08-02] MEDS: MAG HYDROX/ALUMINUM/SIMETH SUS 20 ML, LIDOCAINE VISCOUS 2% 15 ML PO (01:47)
[2020-08-02] MEDS: PANTOPRAZOLE 40 MG VIAL IV (01:48)
--- NOTE | 2020-08-02 02:05 | PC.NURSE ---
Faxed over paperwork to [facility] Pt on phone with them completing the patient interview
[2020-08-02] MEDS: LORazepam 0.5 MG TABLET 1 MG PO ×4 (02:32→03:04)
== END 2020-08-02 03:26 | disposition home or self-care (01) ==
PROVIDERS: Emergency Provider Emergency Medicine; PCP Internal Medicine
DX: F10.129 Alcohol abuse with intoxication, unspecified (principal); F12.90 Cannabis use, unspecified, uncomplicated; Y90.7 Blood alcohol level of 200-239 mg/100 ml
CPT/HCPCS: 36415; 80053; 80076; 80305; 80320; 81001; 83690; 83735; 85025; 87635; 93005; 93010; 96374; 96375; 99282; 99284; C9113; J2060

== ENCOUNTER 2020-08-19 10:54 | Emergency (ER) | payer OTHER, MEDICAID, SELFPAY ==
[2020-08-19] VITALS (10 sets, daily range): BP systolic 121–133; BP diastolic 65–70; PULSE 60–118; RESP 16–28; TEMP 36.1; O2SAT 96–100; BMI 25.7
--- NOTE | 2020-08-19 11:10 | ED.ALCOHOL ---
HPI - Alcohol General Chief Complaint: Toxicology Problem Stated Complaint: alcohol withdrawl Time Seen by Provider: 08/19/20 10:55 Source: patient Mode of arrival: Ambulatory Limitations: no limitations History of Present Illness HPI narrative: 25-year-old male smoker with extensive history of alcohol abuse presents with a chief complaint of desire for medical clearance prior to going to alcohol detox. He was most recently seen by me about 3 weeks ago under the same circumstances and was cleared and then placed into [facility]. He went through the program and states nearly immediately upon discharge started drinking again, admitted to significant amounts of whiskey and beer, about as much as he can get his hands on. He last drank just prior to his arrival. He denies any street drugs or other substances. He is asking for help with detox. He has got a bit of a headache, feels somewhat agitated as some nausea but is otherwise well. MD complaint: alcohol intoxication and alcohol withdrawal Chronic alcohol use: Yes Previous visits for alcohol intoxication: Yes Recent trauma: No Associated symptoms: nausea Treatments prior to arrival: none Related Data Previous Rx's Medication Instructions Recorded lorazepam [Ativan] 1 mg PO DAILY PRN #20 tab 03/17/20 lorazepam 1 mg PO DAILY PRN #20 tab 04/09/20 lorazepam [Ativan] See Rx Instructions .ROUTE 07/30/20 .COMPLEX PRN #19 tab lorazepam [Ativan] See Rx Instructions .ROUTE 08/02/20 .COMPLEX PRN #19 tab lorazepam [Ativan] See Rx Instructions .ROUTE 08/19/20 .COMPLEX #19 tab Allergies Allergy/AdvReac Type Severity Reaction Status Date / Time No Known Drug Allergies Allergy Verified 05/03/20 11:37 Review of Systems Constitutional Constitutional: Denies chills, Denies fatigue, Denies fever(s), Denies frequent falls, Reports headache(s), Denies lethargy and Denies weakness Eyes Eyes: Denies change in vision, Denies eye discharge, Denies irritation and Denies loss of vision ENT Ears, Nose, Mouth, and Throat: Denies change in voice, Denies dizziness, Reports headache(s), Denies neck pain, Denies sore throat and Denies throat swelling Cardiovascular Cardiovascular: Denies chest pain, Denies irregular heart rhythm, Denies lightheadedness, Denies palpitations, Denies dyspnea, Denies dyspnea on exertion and Denies orthopnea Respiratory Respiratory: Denies cough, Denies dyspnea, Denies dyspnea on exertion and Denies wheezing Gastrointestinal Gastrointestinal: Denies abdominal pain, Denies change in bowel habits, Denies diarrhea, Reports nausea and Denies vomiting Musculoskeletal Musculoskeletal: Denies neck pain and Denies numbness Integumentary/Breasts Skin/Breast: Denies pruritus, Denies erythema, Denies rash and Denies wounds Neurologic Neurologic: Denies behavioral changes, Denies confusion, Denies dizziness, Denies frequent falls, Reports headache(s), Denies loss of vision, Denies numbness and Denies weakness Psychiatric Psychiatric: Reports anxiety, Denies behavioral changes, Denies confusion, Denies depression, Denies homicidal ideation and Denies suicidal ideation Endocrine Endocrine: Denies fatigue, Denies flushing and Denies palpitations Hematologic/Lymphatic Hematologic/Lymphatic: Denies easy bruising Allergic/Immunologic Allergic/Immunologic: Denies urticaria, Denies throat swelling and Denies wheezing Patient History Medical History (Updated 08/20/20 @ 09:10 by Jose Raul Yanez DO) Alcohol abuse Cervical radiculopathy Elevated transaminase level Hypokalemia Neck pain on right side Surgical History No history of previous surgery Family History Father Age: 54 Diabetes mellitus Hypertension Social History Smoking Status: Current every day smoker substance use type: marijuana additional social history: Previous heavy EtOH use, occasional THC Smoking Status: Current every day smoker tobacco type: cigarettes alcohol intake frequency: 3 or more drinks per day Alcohol type: beer and hard liquor Substance Use Type: marijuana and painkillers Exam Narrative Exam Narrative: GENERAL: [25] year old patient appears stated age. Well-nourished, well-developed patient, in mild distress. Mild slurring, seems slightly agitated and anxious HEAD: Atraumatic. Normocephalic. EYES: Pupils equal round and reactive. Extraocular motions intact. No scleral icterus. No injection or drainage. ENT: Nose without bleeding, purulent drainage. Throat without erythema, tonsillar hypertrophy or exudate. Airway patent. NECK: Trachea midline. Non tender CARDIOVASCULAR: Regular rate and rhythm without murmurs, gallops, or rubs. RESPIRATORY: Clear to auscultation. Breath sounds equal bilaterally. No wheezes, rales, or rhonchi. GASTROINTESTINAL: Abdomen soft, non-tender, nondistended. EXTREMITIES: No edema or joint tenderness. BACK: Nontender without deformity or crepitance. No flank tenderness. NEURO: AOx3. No resting tremor at this time SKIN: No rash or erythema of visible areas Initial Vital Signs Initial Vital Signs: Vital Signs Temperature 97.0 F L 08/19/20 10:59 Pulse Rate 98 H 08/19/20 10:59 Respiratory Rate 16 08/19/20 10:59 Blood Pressure 133/70 08/19/20 10:59 Pulse Oximetry 99 08/19/20 10:59 Course Course Course Narrative: Patient medically cleared for detox, however [facility] refused based on his history of leaving prior to completion of the program. We consulted social Work to compile the list of other resources. Extensive discussion with the patient by myself and nursing regarding the next appropriate steps. We encouraged him to place phone calls to the various other facilities and he was very hesitant. I discussed that if he were to leave than his medical clearance with laps. He requested a prescription and wanted to go home despite this lengthy discussion. He demonstrates very minimal withdrawal symptoms. He is speaking clearly without slurring words and able to walk with a steady gait. He has demonstrated capacity to make his own decisions [facility]-Ar for Alcohol Withdrawal from [employer] on 08/19/2020 All calculations should be rechecked by clinician prior to use RESULT SUMMARY: 9 points Patients with scores ?9 may require medication for withdrawal. INPUTS: Nausea/vomiting ?> 2 = (More severe symptoms) Tremor ?> 0 = No tremor Paroxysmal sweats ?> 0 = No sweat visible Anxiety ?> 2 = (More severe symptoms) Agitation ?> 2 = (More severe symptoms) Tactile disturbances ?> 0 = None Auditory disturbances ?> 0 = Not present Visual disturbances ?> 0 = Not present Headache/fullness in head ?> 3 = Moderate Orientation/clouding of sensorium ?> 0 = Oriented, can do serial additions Orders Ordered: Discontinued Medications Sodium Chloride (Normal Saline 0.9%) 1,000 mls @ 1,000 mls/hr IV BOLUS ONE Stop: 08/19/20 11:59 Last Infusion: 08/19/20 12:47 Dose: 0 mls/hr Documented by: Admin: 08/19/20 11:30 Dose: 1,000 mls/hr Documented by: SUKHDEEP Lorazepam (Lorazepam 2 Mg/Ml Inj) 2 mg IV NOW ONE Stop: 08/19/20 14:09 Last Admin: 08/19/20 14:21 Dose: 2 mg Documented by: SUKHDEEP Ondansetron HCl (Ondansetron 4 Mg/2 Ml Inj) 4 mg IV NOW ONE Stop: 08/19/20 12:04 Last Admin: 08/19/20 12:09 Dose: 4 mg Documented by: SUKHDEEP Phenobarbital (Phenobarbital 65 Mg/Ml Vial) 260 mg IV NOW ONE Stop: 08/19/20 11:15 Last Admin: 08/19/20 12:00 Dose: 260 mg Documented by: SUKHDEEP Vital Signs Vital signs: Vital Signs - 8 hr 08/19/20 10:59 Temperature 97.0 F L Pulse Rate 98 H Respiratory Rate 16 Blood Pressure 133/70 Pulse Oximetry 99 MDM - Alcohol Lab Data Result diagrams: 08/19/20 11:19 08/19/20 11:19 Labs: Lab Results 08/19/20 08/19/20 08/19/20 Range/Units 11:19 11:19 11:30 WBC 6.4 (4.5-11.0) X10^3/uL RBC 4.54 (4.5-5.9) X10^6/uL Hgb 15.8 (13.5-17.5) g/dL Hct 44.6 (41-53) % MCV 98.3 (80-100) fL MCH 34.7 H (26-34) PG MCHC 35.4 (30-36) % RDW 12.8 (11.6-14.8) % Plt Count 174 (150-400) X10^3/uL Neut % (Auto) 74.3 (50-75) % Lymph % (Auto) 19.1 L (25-40) % [place] % (Auto) 5.6 (3-14) % Eos % (Auto) 0.3 L (2-4) % Baso % (Auto) 0.7 (0-2) % Neut # (Auto) 4800 (6278-4585) /uL Lymph # (Auto) 1200 (0319-6534) /uL [place] # (Auto) 400 (0-900) /uL Eos # (Auto) 0 (0-450) /uL Baso # (Auto) 0 (0-100) /uL Sodium 140 (137-145) mmol/L Potassium 3.5 (3.4-5.1) mmol/L Chloride 102 (98-107) mmol/L Carbon Dioxide 27 (22-32) mmol/L BUN 12 (9-20) mg/dL Creatinine 0.78 (0.66-1.25) mg/dL Estimated GFR > 60.0 (>60) mL/min BUN/Creatinine Ratio 15.4 (6-22) Glucose 167 H (70-100) mg/dL Calcium 9.0 (8.4-10.2) mg/dL Magnesium 2.6 H (1.6-2.3) mg/dL Total Bilirubin 0.9 (0.2-1.3) mg/dL Conjugated Bilirubin 0.0 (0.0-0.3) md/dL Unconjugated Bilirubin 1.1 (0.0-1.1) mg/dL AST 52 (17-59) IU/L ALT 56 H (<50) IU/L Alkaline Phosphatase 77 (38-126) U/L Total Protein 7.5 (6.3-8.2) g/dL Albumin 4.6 (3.5-5.0) g/dL Globulin 2.9 (1.7-4.1) g/dL Albumin/Globulin Ratio 1.6 (1.0-2.8) Lipase 68 (23-300) U/L Urine Color Urine Appearance Urine pH (4.5-8.0) Ur Specific H[place]ckley (1.000-1.035) Urine Protein (Negative) Urine Glucose (UA) (Negative) g/dL Urine Ketones (NEGATIVE) Urine Occult Blood (Negative) Urine Nitrate (Negative) Urine Bilirubin (NEGATIVE) Urine Urobilinogen (0.2) E.U./dL Ur Leukocyte Esterase (NEGATIVE) Urine RBC (0-5/HPF) Urine WBC (0-5/HPF) Urine Bacteria (None) Ur Culture Indicated? Micro UA Comment U Opiates 300ng/mL cut (Negative) Ur Oxycodone Screen (Negative) Urine Methadone Screen (Negative) Ur Barbiturates Screen (Negative) U Tricyclic Antidepress (Negative) Ur Phencyclidine Scrn (Negative) Ur Amphetamines Screen (Negative) U Methamphetamines Scrn (Negative) Ur MDMA Scrn (Ecstasy) (Negative) U Benzodiazepines Scrn (Negative) Urine Cocaine Screen (Negative) U Marijuana (THC) Screen (Negative) Ethyl Alcohol 255 H ( - 10) mg/dL COVID-19 PCR Negative (Negative) 08/19/20 08/19/20 Range/Units 13:10 13:10 WBC (4.5-11.0) X10^3/uL RBC (4.5-5.9) X10^6/uL Hgb (13.5-17.5) g/dL Hct (41-53) % MCV (80-100) fL MCH (26-34) PG MCHC (30-36) % RDW (11.6-14.8) % Plt Count (150-400) X10^3/uL Neut % (Auto) (50-75) % Lymph % (Auto) (25-40) % [place] % (Auto) (3-14) % Eos % (Auto) (2-4) % Baso % (Auto) (0-2) % Neut # (Auto) (0042-1819) /uL Lymph # (Auto) (5296-7872) /uL Salem # (Auto) (0-900) /uL Eos # (Auto) (0-450) /uL Baso # (Auto) (0-100) /uL Sodium (137-145) mmol/L Potassium (3.4-5.1) mmol/L Chloride (98-107) mmol/L Carbon Dioxide (22-32) mmol/L BUN (9-20) mg/dL Creatinine (0.66-1.25) mg/dL Estimated GFR (>60) mL/min BUN/Creatinine Ratio (6-22) Glucose (70-100) mg/dL Calcium (8.4-10.2) mg/dL Magnesium (1.6-2.3) mg/dL Total Bilirubin (0.2-1.3) mg/dL Conjugated Bilirubin (0.0-0.3) md/dL Unconjugated Bilirubin (0.0-1.1) mg/dL AST (17-59) IU/L ALT (<50) IU/L Alkaline Phosphatase (38-126) U/L Total Protein (6.3-8.2) g/dL Albumin (3.5-5.0) g/dL Globulin (1.7-4.1) g/dL Albumin/Globulin Ratio (1.0-2.8) Lipase (23-300) U/L Urine Color Yellow Urine Appearance Clear Urine pH 6.0 (4.5-8.0) Ur Specific H[place]ckley <=1.005 (1.000-1.035) Urine Protein Negative (Negative) Urine Glucose (UA) Negative (Negative) g/dL Urine Ketones Negative (NEGATIVE) Urine Occult Blood Negative (Negative) Urine Nitrate Negative (Negative) Urine Bilirubin Negative (NEGATIVE) Urine Urobilinogen 0.2 (0.2) E.U./dL Ur Leukocyte Esterase Negative (NEGATIVE) Urine RBC None seen (0-5/HPF) Urine WBC None seen (0-5/HPF) Urine Bacteria None seen (None) Ur Culture Indicated? Cult not indicated Micro UA Comment Microscopic normal U Opiates 300ng/mL cut Negative (Negative) Ur Oxycodone Screen Negative (Negative) Urine Methadone Screen Negative (Negative) Ur Barbiturates Screen Negative (Negative) U Tricyclic Antidepress Negative (Negative) Ur Phencyclidine Scrn Negative (Negative) Ur Amphetamines Screen Negative (Negative) U Methamphetamines Scrn Negative (Negative) Ur MDMA Scrn (Ecstasy) Negative (Negative) U Benzodiazepines Scrn Negative (Negative) Urine Cocaine Screen Negative (Negative) U Marijuana (THC) Screen Negative (Negative) Ethyl Alcohol ( - 10) mg/dL COVID-19 PCR (Negative) Urine Dip Bedside Urine Glucose Negative Bedside Urine Bilirubin - Negative Bedside Urine Ketone - Negative Urine Specific H[place]ckley 1.010 Bedside Urine Occult Blood - Negative Bedside Urine pH 6.0 Bedside Urine Protein - Negative Bedside Urine Urobilinogen - Negative Bedside Urine Nitrite - Negative Bedside Urine Leukocytes - Negative Esterase Discharge Plan Departure Patient Disposition: Home Clinical Impression: Alcohol withdrawal syndrome Qualifiers: Complication of substance-induced condition: uncomplicated Qualified Code(s): F10.230 - Alcohol dependence with withdrawal, uncomplicated Alcoholic intoxication Qualifiers: Complication of substance-induced condition: uncomplicated Qualified Code(s): F10.920 - Alcohol use, unspecified with intoxication, uncomplicated Instructions: DI for Alcohol Use Disorder Activity Restrictions/Additional Instructions: *You have been diagnosed with [alcohol withdrawal, alcohol abuse] *What to do: *Take medications as directed *Follow up with your primary care provider in 2-3 days, call for an appointment. Let them know you were seen in the Emergency Department and that we ask that you be seen in follow up. You've been given numerous contact points *Return to ER if you should have any new, worsening or concerning symptoms Prescriptions: New lorazepam [Ativan] 1 mg tablet See Rx Instructions .ROUTE .COMPLEX Qty: 19 RF: 0 No Action lorazepam [Ativan] 1 mg tablet See Rx Instructions .ROUTE .COMPLEX PRN (Reason: alcohol withdrawal) Qty: 19 RF: 0 lorazepam [Ativan] 1 mg tablet 1 mg PO DAILY PRN (Reason: alcohol withdrawal) Qty: 20 RF: 0 lorazepam 1 mg tablet 1 mg PO DAILY PRN (Reason: alcohol withdrawal) Qty: 20 RF: 0 lorazepam [Ativan] 1 mg tablet See Rx Instructions .ROUTE .COMPLEX PRN (Reason: alcohol withdrawal) Qty: 19 RF: 0 [facility]errals: [facility] [Outside]
[2020-08-19 11:25] LABS: Add Manual Diff / Slide Review NO; Basophils Absolute Auto 0 /uL (0-100); Basophils Percent Auto 0.7 % (0-2); Eosinophils Absolute Auto 0 /uL (0-450); Eosinophils Percent Auto 0.3 % (2-4); Hematocrit 44.6 % (41-53); Hemoglobin 15.8 g/dL (13.5-17.5); Lymphocytes Absolute Auto 1200 /uL (1100-4500); Lymphocytes Percent Auto 19.1 % (25-40); Mean Corpuscular HGB Conc 35.4 % (30-36); Mean Corpuscular Hemoglobin 34.7 PG (26-34); Mean Corpuscular Volume 98.3 fL (80-100); Monocytes Absolute Auto 400 /uL (0-900); Monocytes Percent Auto 5.6 % (3-14); Neutrophils Absolute Auto 4800 /uL (1500-7000); Neutrophils Percent Auto 74.3 % (50-75); Platelet Count 174 X10^3/uL (150-400); Red Blood Cell Count 4.54 X10^6/uL (4.5-5.9); Red Cell Distribution Width 12.8 % (11.6-14.8); White Blood Cell Count 6.4 X10^3/uL (4.5-11.0)
[2020-08-19] MEDS: SODIUM CHLORIDE 0.9% 1,000 ML 1000 ML IV (11:30)
[2020-08-19 11:36] LABS: Alanine Aminotransferase 56 IU/L (<50); Albumin 4.6 g/dL (3.5-5.0); Albumin Globulin Ratio 1.6 (1.0-2.8); Alkaline Phosphatase 77 U/L (38-126); Aspartate Aminotransferase 52 IU/L (17-59); BUN Creatinine Ratio 15.4 (6-22); Bilirubin Total 0.9 mg/dL (0.2-1.3); Bilirubin Unconjugated 1.1 mg/dL (0.0-1.1); Blood Urea Nitrogen 12 mg/dL (9-20); Carbon Dioxide 27 mmol/L (22-32); Chloride 102 mmol/L (98-107); Estimated Glomerular Filt Rate > 60.0 mL/min (>60); Ethanol (ETOH) 255 mg/dL; Globulin 2.9 g/dL (1.7-4.1); Glucose 167 mg/dL (70-100); HEMOLYSIS < 15 (0-50); Lipase 68 U/L (23-300); Magnesium 2.6 mg/dL (1.6-2.3); Potassium 3.5 mmol/L (3.4-5.1); Sodium 140 mmol/L (137-145); Total Protein 7.5 g/dL (6.3-8.2)
[2020-08-19 11:55] LABS: COVID19 -Nasal RAPID Negative (Negative)
[2020-08-19] MEDS: PHENobarbital 65 MG/ML VIAL 260 MG IV (12:00)
[2020-08-19] MEDS: ONDANSETRON 4 MG/2 ML INJ IV (12:09)
[2020-08-19 13:16] LABS: Bacteria Urine None Seen; RBC Urine None Seen (0-5/HPF); WBC Urine None Seen (0-5/HPF)
[2020-08-19 13:18] LABS: Appearance Urine UA CLEAR; Bilirubin Urine UA NEGATIVE (NEGATIVE); Color Urine UA YELLOW; Glucose Urine UA NEGATIVE (Negative); Ketones Urine UA NEGATIVE (NEGATIVE); Leukocyte Esterase Urine UA NEGATIVE (NEGATIVE); Nitrite Urine UA NEGATIVE (Negative); Occult Blood Urine UA NEGATIVE (Negative); Protein Urine UA NEGATIVE (Negative); Specific Gravity Urine UA <=1.005 (1.000-1.035); Urobilinogen Urine UA 0.2 E.U./dL (0.2)
[2020-08-19 13:25] LABS: UR Morphine/Opiate cutoff 300 Negative (Negative); Ur Creatinine Abnormal (Normal); Ur Specific Gravity Normal (Normal); Urine Amphetamines Negative (Negative); Urine Barbiturates Negative (Negative); Urine Benzodiazepines Negative (Negative); Urine Cocaine Negative (Negative); Urine MDMA Negative (Negative); Urine Methadone Negative (Negative); Urine Methamphetamines Negative (Negative); Urine Oxycodone Negative (Negative); Urine Phencyclidine Negative (Negative); Urine Tetrahydrocannabinol Negative (Negative); Urine Tricyclic Antidepressant Negative (Negative); Urine pH Normal (Normal)
[2020-08-19 13:29] LABS: Culture Indicated Urine Cult Not Indicated; Urine Comments Microscopic Normal
[2020-08-19] MEDS: LORazepam 2 MG/ML INJ IV (14:21)
--- NOTE | 2020-08-19 14:36 | PC.NURSE ---
provided half sandwhich/juice
--- NOTE | 2020-08-19 14:37 | PC.NURSE ---
Spoke with Myra at [facility]. Patient declined. Patient reportedly has left on a couple occasions prior to completion of program. Their recommendation is for patient to seek outpatient evaluation with potential bed date. Myra states to give patient their contact number if he needs resources
== END 2020-08-19 16:24 | disposition home or self-care (01) ==
PROVIDERS: Emergency Provider Emergency Medicine
DX: F10.229 Alcohol dependence with intoxication, unspecified (principal); F10.239 Alcohol dependence with withdrawal, unspecified; Y90.8 Blood alcohol level of 240 mg/100 ml or more; Z20.828 Contact with and (suspected) exposure to other viral communicable diseases
CPT/HCPCS: 36415; 80053; 80076; 80305; 80320; 81001; 81003; 83690; 83735; 85025; 87635; J2060; J2405; J2560

== ENCOUNTER 2020-08-19 19:46 | Emergency (ER) | payer OTHER, MEDICAID, SELFPAY ==
[2020-08-19 19:58] VITALS: BP 134/78; PULSE 85; RESP 14; TEMP 36.9; O2SAT 100; BMI 25.8
--- NOTE | 2020-08-19 20:02 | ED_ITS ---
HPI - Alcohol <Sarai Fox MD - Last Filed: 08/28/20 07:16> General Chief Complaint: Toxicology Problem Stated Complaint: suicidal / etoh/ TOBIAS Time Seen by Provider: 08/19/20 20:01 History of Present Illness HPI narrative: 25-year-old gentleman with significant alcohol use disorder presents within 4 hours of emergency room discharge for same. He apparently wanted to go to crisis respite and was declined by [facility] as he has left there prior to completing his full course with his most recent admission approximately 3 weeks ago. With his earlier emergency room stay, there were no significant alternatives for him and he was discharged to the streets. Clearly chose to immediately drink and comes back significantly intoxicated with passive suicidal ideation exacerbated by his acute intoxication. Alcohol level at 11:19 was 255 and returning at 8:26 p.m. is now at 331. Related Data Previous Rx's Medication Instructions Recorded lorazepam [Ativan] 1 mg PO DAILY PRN #20 tab 03/17/20 lorazepam 1 mg PO DAILY PRN #20 tab 04/09/20 lorazepam [Ativan] See Rx Instructions .ROUTE 07/30/20 .COMPLEX PRN #19 tab lorazepam [Ativan] See Rx Instructions .ROUTE 08/02/20 .COMPLEX PRN #19 tab lorazepam [Ativan] See Rx Instructions .ROUTE 08/19/20 .COMPLEX #19 tab Allergies Allergy/AdvReac Type Severity Reaction Status Date / Time No Known Drug Allergies Allergy Verified 05/03/20 11:37 Review of Systems <Sarai Fox MD - Last Filed: 08/28/20 07:16> Review of Systems Narrative: To intoxicated for any reasonable review of systems Patient History <Sarai Fox MD - Last Filed: 08/28/20 07:16> Medical History (Updated 08/20/20 @ 11:24 by Rosemarie Post DO) Alcohol abuse Cervical radiculopathy Elevated transaminase level Hypokalemia Neck pain on right side Surgical History No history of previous surgery Family History Father Age: 54 Diabetes mellitus Hypertension Social History Smoking Status: Current every day smoker substance use type: marijuana additional social history: Previous heavy EtOH use, occasional THC Smoking Status: Current every day smoker tobacco type: cigarettes alcohol intake frequency: 3 or more drinks per day Alcohol type: beer and hard liquor Substance Use Type: marijuana and painkillers Exam <Sarai Fox MD - Last Filed: 08/28/20 07:16> Narrative Exam Narrative: General: Acutely intoxicated with slurred speech. Well- nourished well-developed HEENT: Moist mucous membranes, normal sclera with reactive pupils, Respiratory: Lungs are clear to auscultation, no wheezing no rales no rhonchi. Full and symmetrical air movement Cardiac: Regular rate and rhythm no murmurs no bruits Abdomen: Soft nontender good bowel tones, no flank pain Skin: Warm and dry, no rashes Neurologic: Intoxicated with no obvious asymmetric abnormalities Extremities: No trauma, well perfused Initial Vital Signs Initial Vital Signs: Vital Signs Temperature 98.5 F 08/19/20 19:58 Pulse Rate 85 08/19/20 19:58 Respiratory Rate 14 08/19/20 19:58 Blood Pressure 134/78 08/19/20 19:58 Pulse Oximetry 100 08/19/20 19:58 <Rosemarie Post DO - Last Filed: 08/20/20 13:29> Initial Vital Signs Initial Vital Signs: Vital Signs Temperature 98.5 F 08/19/20 19:58 Pulse Rate 85 08/19/20 19:58 Respiratory Rate 14 08/19/20 19:58 Blood Pressure 134/78 08/19/20 19:58 Pulse Oximetry 100 08/19/20 19:58 Course <Sarai Fox MD - Last Filed: 08/28/20 07:16> Orders Ordered: Discontinued Medications Multivitamins/Calcium (Multivit,Calc,Mins/Iron/Folic 1 Tablet) 1 tab PO DAILY ONE Stop: 08/19/20 20:07 Last Admin: 08/19/20 20:20 Dose: 1 tab Documented by: DONNIE Thiamine HCl (Thiamine 100 Mg Tablet) 100 mg PO NOW ONE Stop: 08/19/20 20:06 Last Admin: 08/19/20 20:20 Dose: 100 mg Documented by: DONNIE Vital Signs Vital signs: Vital Signs - 8 hr 08/20/20 06:20 08/20/20 11:38 Pulse Rate 57 L 65 Respiratory Rate 15 Blood Pressure 117/57 L 124/77 Pulse Oximetry 97 99 <Rosemarie Post DO - Last Filed: 08/20/20 13:29> Orders Ordered: Discontinued Medications Multivitamins/Calcium (Multivit,Calc,Mins/Iron/Folic 1 Tablet) 1 tab PO DAILY ONE Stop: 08/19/20 20:07 Last Admin: 08/19/20 20:20 Dose: 1 tab Documented by: DONNIE Thiamine HCl (Thiamine 100 Mg Tablet) 100 mg PO NOW ONE Stop: 08/19/20 20:06 Last Admin: 08/19/20 20:20 Dose: 100 mg Documented by: DONNIE Vital Signs Vital signs: Vital Signs - 8 hr 08/20/20 06:20 08/20/20 11:38 Pulse Rate 57 L 65 Respiratory Rate 15 Blood Pressure 117/57 L 124/77 Pulse Oximetry 97 99 MDM - Alcohol <Sarai Fox MD - Last Filed: 08/28/20 07:16> Medical Records Attestation: I reviewed the patient's medical records. Lab Data Attestation: I reviewed the patient's lab results. Result diagrams: 08/19/20 20:26 08/19/20 20:26 Labs: Lab Results 08/19/20 08/19/20 08/19/20 Range/Units 20:26 20:26 20:26 WBC 5.2 (4.5-11.0) X10^3/uL RBC 4.47 L (4.5-5.9) X10^6/uL Hgb 15.4 (13.5-17.5) g/dL Hct 43.8 (41-53) % MCV 97.9 (80-100) fL MCH 34.5 H (26-34) PG MCHC 35.2 (30-36) % RDW 12.9 (11.6-14.8) % Plt Count 190 (150-400) X10^3/uL Neut % (Auto) 40.2 L D (50-75) % Lymph % (Auto) 46.3 H D (25-40) % [place] % (Auto) 9.3 (3-14) % Eos % (Auto) 2.8 (2-4) % Baso % (Auto) 1.4 (0-2) % Neut # (Auto) 2100 (7801-9779) /uL Lymph # (Auto) 2400 (9918-9341) /uL [place] # (Auto) 500 (0-900) /uL Eos # (Auto) 100 (0-450) /uL Baso # (Auto) 100 (0-100) /uL Sodium 144 (137-145) mmol/L Potassium 4.5 (3.4-5.1) mmol/L Chloride 105 (98-107) mmol/L Carbon Dioxide 34 H (22-32) mmol/L BUN 9 (9-20) mg/dL Creatinine 0.83 (0.66-1.25) mg/dL Estimated GFR > 60.0 (>60) mL/min BUN/Creatinine Ratio 10.8 (6-22) Glucose 103 H (70-100) mg/dL Calcium 8.7 (8.4-10.2) mg/dL Magnesium 2.3 (1.6-2.3) mg/dL Total Bilirubin 0.5 (0.2-1.3) mg/dL AST 50 (17-59) IU/L ALT 57 H (<50) IU/L Alkaline Phosphatase 70 (38-126) U/L Total Protein 7.1 (6.3-8.2) g/dL Albumin 4.3 (3.5-5.0) g/dL Globulin 2.8 (1.7-4.1) g/dL Albumin/Globulin Ratio 1.5 (1.0-2.8) TSH 0.460 L (0.47-4.68) uIU/mL U Opiates 300ng/mL cut (Negative) Ur Oxycodone Screen (Negative) Urine Methadone Screen (Negative) Ur Barbiturates Screen (Negative) U Tricyclic Antidepress (Negative) Ur Phencyclidine Scrn (Negative) Ur Amphetamines Screen (Negative) U Methamphetamines Scrn (Negative) Ur MDMA Scrn (Ecstasy) (Negative) U Benzodiazepines Scrn (Negative) Urine Cocaine Screen (Negative) U Marijuana (THC) Screen (Negative) Ethyl Alcohol 331 H ( - 10) mg/dL 12/28/20 Range/Units 20:56 WBC (4.5-11.0) X10^3/uL RBC (4.5-5.9) X10^6/uL Hgb (13.5-17.5) g/dL Hct (41-53) % MCV (80-100) fL MCH (26-34) PG MCHC (30-36) % RDW (11.6-14.8) % Plt Count (150-400) X10^3/uL Neut % (Auto) (50-75) % Lymph % (Auto) (25-40) % [place] % (Auto) (3-14) % Eos % (Auto) (2-4) % Baso % (Auto) (0-2) % Neut # (Auto) (5501-8443) /uL Lymph # (Auto) (2030-1547) /uL [place] # (Auto) (0-900) /uL Eos # (Auto) (0-450) /uL Baso # (Auto) (0-100) /uL Sodium (137-145) mmol/L Potassium (3.4-5.1) mmol/L Chloride (98-107) mmol/L Carbon Dioxide (22-32) mmol/L BUN (9-20) mg/dL Creatinine (0.66-1.25) mg/dL Estimated GFR (>60) mL/min BUN/Creatinine Ratio (6-22) Glucose (70-100) mg/dL Calcium (8.4-10.2) mg/dL Magnesium (1.6-2.3) mg/dL Total Bilirubin (0.2-1.3) mg/dL AST (17-59) IU/L ALT (<50) IU/L Alkaline Phosphatase (38-126) U/L Total Protein (6.3-8.2) g/dL Albumin (3.5-5.0) g/dL Globulin (1.7-4.1) g/dL Albumin/Globulin Ratio (1.0-2.8) TSH (0.47-4.68) uIU/mL U Opiates 300ng/mL cut Negative (Negative) Ur Oxycodone Screen Negative (Negative) Urine Methadone Screen Negative (Negative) Ur Barbiturates Screen Negative (Negative) U Tricyclic Antidepress Negative (Negative) Ur Phencyclidine Scrn Negative (Negative) Ur Amphetamines Screen Negative (Negative) U Methamphetamines Scrn Negative (Negative) Ur MDMA Scrn (Ecstasy) Negative (Negative) U Benzodiazepines Scrn Negative (Negative) Urine Cocaine Screen Negative (Negative) U Marijuana (THC) Screen Positive H (Negative) Ethyl Alcohol ( - 10) mg/dL MDM Narrative Medical decision making narrative: 25-year-old gentleman who has now been in the emergency department from most 24 hours with a brief discharge during which he clearly became more intoxicated. He has spent a quiet evening sleeping. As he was declined by [facility] yesterday we did not try again last night. Given his recurrent episodes of alcohol intoxication and inability to care for self he may be a candidate for ?[employer] [employer] [place]? detainment for alcohol use disorder. Will ask for social worker health services involvement later today to see if we can find a a better discharge plan that does not involve him returning to the emergency room more intoxicated within a few hours. <Rosemarie Post, DO - Last Filed: 08/20/20 13:29> Lab Data Labs: Lab Results 08/19/20 08/19/20 08/19/20 Range/Units 20:26 20:26 20:26 WBC 5.2 (4.5-11.0) X10^3/uL RBC 4.47 L (4.5-5.9) X10^6/uL Hgb 15.4 (13.5-17.5) g/dL Hct 43.8 (41-53) % MCV 97.9 (80-100) fL MCH 34.5 H (26-34) PG MCHC 35.2 (30-36) % RDW 12.9 (11.6-14.8) % Plt Count 190 (150-400) X10^3/uL Neut % (Auto) 40.2 L D (50-75) % Lymph % (Auto) 46.3 H D (25-40) % [place] % (Auto) 9.3 (3-14) % Eos % (Auto) 2.8 (2-4) % Baso % (Auto) 1.4 (0-2) % Neut # (Auto) 2100 (6808-1640) /uL Lymph # (Auto) 2400 (5576-3079) /uL [place] # (Auto) 500 (0-900) /uL Eos # (Auto) 100 (0-450) /uL Baso # (Auto) 100 (0-100) /uL Sodium 144 (137-145) mmol/L Potassium 4.5 (3.4-5.1) mmol/L Chloride 105 (98-107) mmol/L Carbon Dioxide 34 H (22-32) mmol/L BUN 9 (9-20) mg/dL Creatinine 0.83 (0.66-1.25) mg/dL Estimated GFR > 60.0 (>60) mL/min BUN/Creatinine Ratio 10.8 (6-22) Glucose 103 H (70-100) mg/dL Calcium 8.7 (8.4-10.2) mg/dL Magnesium 2.3 (1.6-2.3) mg/dL Total Bilirubin 0.5 (0.2-1.3) mg/dL AST 50 (17-59) IU/L ALT 57 H (<50) IU/L Alkaline Phosphatase 70 (38-126) U/L Total Protein 7.1 (6.3-8.2) g/dL Albumin 4.3 (3.5-5.0) g/dL Globulin 2.8 (1.7-4.1) g/dL Albumin/Globulin Ratio 1.5 (1.0-2.8) TSH 0.460 L (0.47-4.68) uIU/mL U Opiates 300ng/mL cut (Negative) Ur Oxycodone Screen (Negative) Urine Methadone Screen (Negative) Ur Barbiturates Screen (Negative) U Tricyclic Antidepress (Negative) Ur Phencyclidine Scrn (Negative) Ur Amphetamines Screen (Negative) U Methamphetamines Scrn (Negative) Ur MDMA Scrn (Ecstasy) (Negative) U Benzodiazepines Scrn (Negative) Urine Cocaine Screen (Negative) U Marijuana (THC) Screen (Negative) Ethyl Alcohol 331 H ( - 10) mg/dL 08/19/20 Range/Units 20:56 WBC (4.5-11.0) X10^3/uL RBC (4.5-5.9) X10^6/uL Hgb (13.5-17.5) g/dL Hct (41-53) % MCV (80-100) fL MCH (26-34) PG MCHC (30-36) % RDW (11.6-14.8) % Plt Count (150-400) X10^3/uL Neut % (Auto) (50-75) % Lymph % (Auto) (25-40) % [place] % (Auto) (3-14) % Eos % (Auto) (2-4) % Baso % (Auto) (0-2) % Neut # (Auto) (8938-7115) /uL Lymph # (Auto) (3716-8477) /uL [place] # (Auto) (0-900) /uL Eos # (Auto) (0-450) /uL Baso # (Auto) (0-100) /uL Sodium (137-145) mmol/L Potassium (3.4-5.1) mmol/L Chloride (98-107) mmol/L Carbon Dioxide (22-32) mmol/L BUN (9-20) mg/dL Creatinine (0.66-1.25) mg/dL Estimated GFR (>60) mL/min BUN/Creatinine Ratio (6-22) Glucose (70-100) mg/dL Calcium (8.4-10.2) mg/dL Magnesium (1.6-2.3) mg/dL Total Bilirubin (0.2-1.3) mg/dL AST (17-59) IU/L ALT (<50) IU/L Alkaline Phosphatase (38-126) U/L Total Protein (6.3-8.2) g/dL Albumin (3.5-5.0) g/dL Globulin (1.7-4.1) g/dL Albumin/Globulin Ratio (1.0-2.8) TSH (0.47-4.68) uIU/mL U Opiates 300ng/mL cut Negative (Negative) Ur Oxycodone Screen Negative (Negative) Urine Methadone Screen Negative (Negative) Ur Barbiturates Screen Negative (Negative) U Tricyclic Antidepress Negative (Negative) Ur Phencyclidine Scrn Negative (Negative) Ur Amphetamines Screen Negative (Negative) U Methamphetamines Scrn Negative (Negative) Ur MDMA Scrn (Ecstasy) Negative (Negative) U Benzodiazepines Scrn Negative (Negative) Urine Cocaine Screen Negative (Negative) U Marijuana (THC) Screen Positive H (Negative) Ethyl Alcohol ( - 10) mg/dL MDM Narrative Medical decision making narrative: Patient signed out to me by night time nanny provider seen evaluated patient myself. He is clinically sober but states that he is not sure if he wants to stop drinking he is made aware of his frequent ER visits. He states that he does have a prescription for Ativan, but he has not yet filled or started taking it. He denies any suicidal or homicidal ideations. At this time he does not want any further detox he was denied [facility]. Patient has had 4 ED visits to in the last 24 hours for alcohol abuse. He does not have any dangerous behavior while drinking. At this time not sure [place] is appropriate. The patient is clinically sober, free from distracting injury, appears to have intact insight, judgment and reason. Does not meet criteria for involuntary hospitalization. Patient has the capacity to make decisions. Discharge Plan Departure Patient Disposition: Home Clinical Impression: Alcoholic intoxication Instructions: DI for Alcohol Use Disorder Activity Restrictions/Additional Instructions: *You have been diagnosed with alcohol intoxication *What to do: Recommend decreasing her alcohol intake slowly by 1-2 drinks daily *Continue to take medications as directed -take your previous Ativan prescription as prescribed if you stop drinking. Do not combine with alcohol *Follow up with your primary care provider in 2-3 days *Return to ER if you should have any new, worsening or concerning symptoms Prescriptions: No Action lorazepam [Ativan] 1 mg tablet See Rx Instructions .ROUTE .COMPLEX PRN (Reason: alcohol withdrawal) Qty: 19 RF: 0 lorazepam [Ativan] 1 mg tablet 1 mg PO DAILY PRN (Reason: alcohol withdrawal) Qty: 20 RF: 0 lorazepam 1 mg tablet 1 mg PO DAILY PRN (Reason: alcohol withdrawal) Qty: 20 RF: 0 lorazepam [Ativan] 1 mg tablet See Rx Instructions .ROUTE .COMPLEX PRN (Reason: alcohol withdrawal) Qty: 19 RF: 0 lorazepam [Ativan] 1 mg tablet See Rx Instructions .ROUTE .COMPLEX Qty: 19 RF: 0 Referrals: Alcohol [facility] [Outside] [facility] [Outside] [facility] [Outside] [facility] [Outside]
[2020-08-19] MEDS: THIAMINE 100 MG TABLET PO (20:20)
[2020-08-19] MEDS: MULTIVIT,CALC,MINS/IRON/FOLIC 1 TABLET 1 TAB PO (20:20)
[2020-08-19 20:34] LABS: Add Manual Diff / Slide Review NO; Basophils Absolute Auto 100 /uL (0-100); Basophils Percent Auto 1.4 % (0-2); Eosinophils Absolute Auto 100 /uL (0-450); Eosinophils Percent Auto 2.8 % (2-4); Hematocrit 43.8 % (41-53); Hemoglobin 15.4 g/dL (13.5-17.5); Lymphocytes Absolute Auto 2400 /uL (1100-4500); Lymphocytes Percent Auto 46.3 % (25-40); Mean Corpuscular HGB Conc 35.2 % (30-36); Mean Corpuscular Hemoglobin 34.5 PG (26-34); Mean Corpuscular Volume 97.9 fL (80-100); Monocytes Absolute Auto 500 /uL (0-900); Monocytes Percent Auto 9.3 % (3-14); Neutrophils Absolute Auto 2100 /uL (1500-7000); Neutrophils Percent Auto 40.2 % (50-75); Platelet Count 190 X10^3/uL (150-400); Red Blood Cell Count 4.47 X10^6/uL (4.5-5.9); Red Cell Distribution Width 12.9 % (11.6-14.8); White Blood Cell Count 5.2 X10^3/uL (4.5-11.0)
--- NOTE | 2020-08-19 20:44 | PC.NURSE ---
ERICK Gruber now at bedside 1:1 for patient safety.
[2020-08-19 20:46] LABS: Alanine Aminotransferase 57 IU/L (<50); Albumin 4.3 g/dL (3.5-5.0); Albumin Globulin Ratio 1.5 (1.0-2.8); Alkaline Phosphatase 70 U/L (38-126); Aspartate Aminotransferase 50 IU/L (17-59); BUN Creatinine Ratio 10.8 (6-22); Bilirubin Total 0.5 mg/dL (0.2-1.3); Blood Urea Nitrogen 9 mg/dL (9-20); Calcium 8.7 mg/dL (8.4-10.2); Carbon Dioxide 34 mmol/L (22-32); Chloride 105 mmol/L (98-107); Estimated Glomerular Filt Rate > 60.0 mL/min (>60); Globulin 2.8 g/dL (1.7-4.1); Glucose 103 mg/dL (70-100); HEMOLYSIS < 15 (0-50); Magnesium 2.3 mg/dL (1.6-2.3); Potassium 4.5 mmol/L (3.4-5.1); Sodium 144 mmol/L (137-145); Total Protein 7.1 g/dL (6.3-8.2)
[2020-08-19 20:54] LABS: Ethanol (ETOH) 331 mg/dL
--- NOTE | 2020-08-19 21:04 | PC.NURSE ---
Pt speaking with this sitter about wanting to get help. Pt is very tearful about where he is currently at in life. Pt very comfortable sharing his feelings about home life with his parents when he is allowed to be there. Pt states he does not have anyone to really lean on and when he gets out of here he will begin his solo journey again, Pt states that scares him a little
[2020-08-19 21:06] LABS: UR Morphine/Opiate cutoff 300 Negative (Negative); Ur Creatinine Normal (Normal); Ur Specific Gravity Normal (Normal); Urine Amphetamines Negative (Negative); Urine Barbiturates Negative (Negative); Urine Benzodiazepines Negative (Negative); Urine Cocaine Negative (Negative); Urine MDMA Negative (Negative); Urine Methadone Negative (Negative); Urine Methamphetamines Negative (Negative); Urine Oxycodone Negative (Negative); Urine Phencyclidine Negative (Negative); Urine Tetrahydrocannabinol Positive (Negative); Urine Tricyclic Antidepressant Negative (Negative); Urine pH Normal (Normal)
--- NOTE | 2020-08-19 22:02 | PC.NURSE ---
Pt eyes closed chest rising and falling
[2020-08-19 22:45] VITALS: PULSE 84; RESP 14; O2SAT 97
--- NOTE | 2020-08-20 00:34 | PC.NURSE ---
Pt moved to room 11, Pt cooperative
--- NOTE | 2020-08-20 02:52 | PC.NURSE ---
Pt eyes closed chest rising and falling
[2020-08-20 06:20] VITALS: BP 117/57; PULSE 57; RESP 15; O2SAT 97
--- NOTE | 2020-08-20 07:15 | PC.NURSE ---
Pt is sleeping soundly in a prone position. This BLASTER HELPER is now sitting 1:1 for observation.
[2020-08-20 11:38] VITALS: BP 124/77; PULSE 65; O2SAT 99
== END 2020-08-20 11:40 | disposition home or self-care (01) ==
PROVIDERS: Emergency Medicine; Emergency Provider Emergency Medicine
DX: F10.129 Alcohol abuse with intoxication, unspecified (principal); Y90.8 Blood alcohol level of 240 mg/100 ml or more; R45.851 Suicidal ideations; Z20.828 Contact with and (suspected) exposure to other viral communicable diseases
CPT/HCPCS: 36415; 80053; 80076; 80305; 80320; 81001; 81003; 83690; 83735; 84443; 85025; 87635; 99283; 99284; J2060; J2405; J2560

== ENCOUNTER 2021-03-23 18:44 | Emergency (ER) | payer OTHER, MEDICAID, SELFPAY ==
[2021-03-23 18:49] VITALS: BP 132/76; PULSE 102; RESP 18; TEMP 36.7; O2SAT 97; BMI 24.4
[2021-03-23 19:09] LABS: Bacteria Urine None Seen; RBC Urine None Seen (0-5/HPF); WBC Urine None Seen (0-5/HPF)
[2021-03-23 19:13] LABS: Appearance Urine UA CLEAR; Bilirubin Urine UA NEGATIVE (NEGATIVE); Color Urine UA YELLOW; Glucose Urine UA NEGATIVE (Negative); Ketones Urine UA NEGATIVE (NEGATIVE); Leukocyte Esterase Urine UA NEGATIVE (NEGATIVE); Nitrite Urine UA NEGATIVE (Negative); Occult Blood Urine UA NEGATIVE (Negative); Protein Urine UA NEGATIVE (Negative); Specific Gravity Urine UA <=1.005 (1.000-1.035); Urobilinogen Urine UA 0.2 E.U./dL (0.2); pH Urine UA 6.5 (4.5-8.0)
[2021-03-23 19:14] LABS: Add Manual Diff / Slide Review NO; Basophils Absolute Auto 100 /uL (0-100); Basophils Percent Auto 0.5 % (0-2); Eosinophils Absolute Auto 100 /uL (0-450); Eosinophils Percent Auto 0.6 % (2-4); Hematocrit 46.3 % (41-53); Hemoglobin 16.1 g/dL (13.5-17.5); Lymphocytes Absolute Auto 1600 /uL (1100-4500); Lymphocytes Percent Auto 16.7 % (25-40); Mean Corpuscular HGB Conc 34.7 % (30-36); Mean Corpuscular Hemoglobin 34.2 PG (26-34); Mean Corpuscular Volume 98.5 fL (80-100); Monocytes Absolute Auto 800 /uL (0-900); Monocytes Percent Auto 8.2 % (3-14); Neutrophils Absolute Auto 7200 /uL (1500-7000); Platelet Count 208 X10^3/uL (150-400); Red Cell Distribution Width 12.4 % (11.6-14.8); White Blood Cell Count 9.8 X10^3/uL (4.5-11.0)
[2021-03-23 19:22] LABS: Culture Indicated Urine Cult Not Indicated
[2021-03-23 19:26] LABS: Acetaminophen < 10 ug/mL (10-30); Alanine Aminotransferase 95 IU/L (<50); Albumin 4.6 g/dL (3.5-5.0); Albumin Globulin Ratio 1.5 (1.0-2.8); Alkaline Phosphatase 92 U/L (38-126); Aspartate Aminotransferase 97 IU/L (17-59); BUN Creatinine Ratio 16.1 (6-22); Bilirubin Total 0.4 mg/dL (0.2-1.3); Blood Urea Nitrogen 9 mg/dL (9-20); Calcium 9.5 mg/dL (8.4-10.2); Carbon Dioxide 18 mmol/L (22-32); Chloride 107 mmol/L (98-107); Estimated Glomerular Filt Rate > 60.0 mL/min (>60); Ethanol (ETOH) 151 mg/dL; Glucose 138 mg/dL (70-100); HEMOLYSIS < 15 (0-50); Potassium 3.8 mmol/L (3.4-5.1); Salicylate < 1.0 mg/dL (<20); Sodium 139 mmol/L (137-145); Total Protein 7.6 g/dL (6.3-8.2)
[2021-03-23 19:31] LABS: COVID19 -Nasal RAPID Negative (Negative)
[2021-03-23 19:48] LABS: Free T4, Direct Thyroxine 1.08 ng/dL (0.78-2.19)
[2021-03-23 20:02] LABS: Thyroid Stimulating Hormone 0.082 uIU/mL (0.47-4.68)
--- NOTE | 2021-03-23 20:47 | ED_ITS ---
HPI - Nausea/Vomiting/Diarrhea <Jose Raul Yanez DO - Last Filed: 03/25/21 03:12> General Chief complaint: Toxicology Problem Stated complaint: OPIATE WITHDRAWALS Time Seen by Provider: 03/23/21 18:58 Source: patient Mode of arrival: Ambulatory Limitations: no limitations History of Present Illness HPI Narrative: 25-year-old male smoker with history of alcohol, opiate and methamphetamine abuse presents with a chief complaint of nausea, vomiting, diarrhea and agitation over the past 24 hours or so. He states that he has been doing quite well with alcohol but had been using opiate pills including oxycodone which have been laced with fentanyl and took his last dose yesterday. His symptoms started 6-8 hours after his last dose. He has had nausea, vomiting, diarrhea, agitation and sweating. He denies any chest pain or shortness of breath. He has had no fever, he is hoping for placement to a detox facility Related Data Previous Rx's Medication Instructions Recorded lorazepam 1 mg tablet (Ativan) 1 mg PO DAILY PRN #20 tab 03/17/20 lorazepam 1 mg tablet 1 mg PO DAILY PRN #20 tab 04/09/20 lorazepam 1 mg tablet (Ativan) See Rx Instructions .ROUTE 07/30/20 .COMPLEX PRN #19 tab lorazepam 1 mg tablet (Ativan) See Rx Instructions .ROUTE 08/02/20 .COMPLEX PRN #19 tab lorazepam 1 mg tablet (Ativan) See Rx Instructions .ROUTE 08/19/20 .COMPLEX #19 tab chlordiazepoxide HCl 25 mg capsule 25 mg PO Q6H #14 cap 03/24/21 clonidine HCl 0.1 mg tablet 0.1 mg PO BID #6 tab 03/24/21 Allergies Allergy/AdvReac Type Severity Reaction Status Date / Time No Known Drug Allergies Allergy Verified 03/23/21 18:49 Review of Systems <DO Isa Junior Last Filed: 03/25/21 03:12> Review of Systems Narrative: GENERAL: See HPI. HEENT: Denies sinus pain, ear pain, sore throat, difficulty swallowing, dizziness. RESPIRATORY: Denies dyspnea, cough, wheezing, hemoptysis, sputum. CARDIOVASCULAR: Denies chest pain, palpitations, orthopnea, edema, GASTROINTESTINAL: See HP : Denies dysuria, frequency, incontinence, hematuria, urinary retention. MUSCULOSKELETAL: denies weakness, joint pain, or bony pain SKIN: Denies rash, skin lesions, or other NEUROLOGIC: Denies weakness, headache, numbness, change in speech, confusion, seizures, incoordination. PSYCHIATRIC: No concerning psychosocial issues. 12 point review of systems is negative except for those stated above Patient History <Jose Raul Yanez DO - Last Filed: 03/25/21 03:12> Medical History (Updated 03/24/21 @ 07:55 by Constance William DO) Alcohol abuse Cervical radiculopathy Elevated transaminase level Hypokalemia Neck pain on right side Surgical History No history of previous surgery Family History (Reviewed 03/23/21 @ 21: by Jose Raul Yanez DO) Father Age: 54 Diabetes mellitus Hypertension Social History Smoking Status: Current every day smoker substance use type: marijuana additional social history: Previous heavy EtOH use, occasional THC Smoking Status: Current every day smoker tobacco type: cigarettes alcohol intake frequency: 3 or more drinks per day Alcohol type: beer and hard liquor Substance Use Type: marijuana, opiates and painkillers Exam <Jose Raul Yanez DO - Last Filed: 03/25/21 03:12> Narrative Exam Narrative: GENERAL: [25] year old patient appears stated age. Well- developed patient, in mild distress. HEAD: Atraumatic. Normocephalic. EYES: Pupils equal round and reactive. Extraocular motions intact. No scleral icterus. No injection or drainage. ENT: Nose without bleeding, purulent drainage. Throat without erythema, tonsillar hypertrophy or exudate. Airway patent. NECK: Trachea midline. Non tender CARDIOVASCULAR: Regular rate and rhythm without murmurs, gallops, or rubs. RESPIRATORY: Clear to auscultation. Breath sounds equal bilaterally. No wheezes, rales, or rhonchi. GASTROINTESTINAL: Abdomen soft, non-tender, nondistended. EXTREMITIES: No edema or joint tenderness. BACK: Nontender without deformity or crepitance. No flank tenderness. NEURO: AOx3. SKIN: No rash or erythema of visible areas Initial Vital Signs Initial Vital Signs: Vital Signs Temperature 98.1 F 03/23/21 18:49 Pulse Rate 102 H 03/23/21 18:49 Respiratory Rate 18 03/23/21 18:49 Blood Pressure 132/76 03/23/21 18:49 Pulse Oximetry 97 03/23/21 18:49 <Constance William DO - Last Filed: 03/24/21 19:44> Initial Vital Signs Initial Vital Signs: Vital Signs Temperature 98.1 F 03/23/21 18:49 Pulse Rate 102 H 03/23/21 18:49 Respiratory Rate 18 03/23/21 18:49 Blood Pressure 132/76 03/23/21 18:49 Pulse Oximetry 97 03/23/21 18:49 Course <Jose Raul Yanez DO - Last Filed: 03/25/21 03:12> Course Course Narrative: Patient requesting help with detox from a multiple substances. He has felt a bit agitated and was given phenobarb and rested for quite a few hours. We did make some calls on his behalf but were told he must have [employer] evaluation prior to placement Orders Ordered: Discontinued Medications Chlordiazepoxide HCl (Chlordiazepoxide 25 Mg Capsule) 25 mg PO NOW ONE Stop: 03/24/21 07:56 Last Admin: 03/24/21 09:09 Dose: 25 mg Documented by: REDD Clonidine HCl (Clonidine Tts 0.2 Mg Patch) 0.2 mg TOP NOW ONE Stop: 03/23/21 20:54 Last Admin: 03/23/21 22:55 Dose: Not Given Documented by: [email or web address] Ondansetron HCl (Ondansetron 4 Mg Odt) 4 mg SL NOW ONE Stop: 03/23/21 20:54 Last Admin: 03/23/21 21:52 Dose: 4 mg Documented by: [email or web address] Phenobarbital (Phenobarbital 65 Mg/Ml Vial) 260 mg IV NOW ONE Stop: 03/24/21 00:29 Last Admin: 03/24/21 00:37 Dose: 260 mg Documented by: [email or web address] Phenobarbital (Phenobarbital 65 Mg/Ml Vial) 130 mg IV NOW ONE Stop: 03/24/21 05:08 Last Admin: 03/24/21 05:31 Dose: 130 mg Documented by: [email or web address] Vital Signs Vital signs: Vital Signs - 8 hr 03/24/21 01:30 03/24/21 02:00 03/24/21 02:30 Pulse Rate 64 58 L 55 L Respiratory Rate 20 17 18 Blood Pressure 127/79 127/74 128/79 Pulse Oximetry 98 99 98 03/24/21 03:00 03/24/21 03:30 03/24/21 04:00 Pulse Rate 57 L 58 L 55 L Respiratory Rate 19 19 19 Blood Pressure 122/77 125/80 129/82 Pulse Oximetry 99 99 99 03/24/21 04:30 03/24/21 05:04 03/24/21 05:05 Pulse Rate 54 L 69 60 Respiratory Rate 20 19 Blood Pressure 123/80 131/76 Pulse Oximetry 99 99 100 03/24/21 05:30 03/24/21 06:00 03/24/21 06:30 Pulse Rate 67 56 L 58 L Respiratory Rate 18 18 18 Blood Pressure 136/81 Pulse Oximetry 100 98 99 03/24/21 07:00 03/24/21 07:30 03/24/21 08:00 Pulse Rate 59 L 66 82 Respiratory Rate 18 20 22 Blood Pressure 123/73 Pulse Oximetry 98 100 99 03/24/21 08:01 Pulse Rate 76 Respiratory Rate 24 Blood Pressure 133/74 Pulse Oximetry 98 <Constance William, - Last Filed: 03/24/21 19:44> Orders Ordered: Discontinued Medications Chlordiazepoxide HCl (Chlordiazepoxide 25 Mg Capsule) 25 mg PO NOW ONE Stop: 03/24/21 07:56 Last Admin: 03/24/21 09:09 Dose: 25 mg Documented by: REDD Clonidine HCl (Clonidine Tts 0.2 Mg Patch) 0.2 mg TOP NOW ONE Stop: 03/23/21 20:54 Last Admin: 03/23/21 22:55 Dose: Not Given Documented by: KRISTEN Ondansetron HCl (Ondansetron 4 Mg Odt) 4 mg SL NOW ONE Stop: 03/23/21 20:54 Last Admin: 03/23/21 21:52 Dose: 4 mg Documented by: ABEAMATTHEW Phenobarbital (Phenobarbital 65 Mg/Ml Vial) 260 mg IV NOW ONE Stop: 03/24/21 00:29 Last Admin: 03/24/21 00:37 Dose: 260 mg Documented by: ABEAMA Phenobarbital (Phenobarbital 65 Mg/Ml Vial) 130 mg IV NOW ONE Stop: 03/24/21 05:08 Last Admin: 03/24/21 05:31 Dose: 130 mg Documented by: KRISTEN Reevaluation(s) Reevaluation #1: Patient seen and independently evaluated by myself. Patient states he is feeling a little bit shaky. His vitals are normal here in the department. We did review the plan and patient is interested in seeking assistance for detox for opiate as well as alcohol use. Patient is agreeable to staying until social work's available to help with this as overnight facilities had beds but needed social work eval before they would accept patient. Patient's labs show up persistently low TSH but no other major abnormalities. Time: 07:49 Vital Signs Vital signs: Vital Signs - 8 hr 03/24/21 01:30 03/24/21 02:00 03/24/21 02:30 Pulse Rate 64 58 L 55 L Respiratory Rate 20 17 18 Blood Pressure 127/79 127/74 128/79 Pulse Oximetry 98 99 98 03/24/21 03:00 03/24/21 03:30 03/24/21 04:00 Pulse Rate 57 L 58 L 55 L Respiratory Rate 19 19 19 Blood Pressure 122/77 125/80 129/82 Pulse Oximetry 99 99 99 03/24/21 04:30 03/24/21 05:04 03/24/21 05:05 Pulse Rate 54 L 69 60 Respiratory Rate 20 19 Blood Pressure 123/80 131/76 Pulse Oximetry 99 99 100 03/24/21 05:30 03/24/21 06:00 03/24/21 06:30 Pulse Rate 67 56 L 58 L Respiratory Rate 18 18 18 Blood Pressure 136/81 Pulse Oximetry 100 98 99 03/24/21 07:00 03/24/21 07:30 03/24/21 08:00 Pulse Rate 59 L 66 82 Respiratory Rate 18 20 22 Blood Pressure 123/73 Pulse Oximetry 98 100 99 03/24/21 08:01 Pulse Rate 76 Respiratory Rate 24 Blood Pressure 133/74 Pulse Oximetry 98 MDM - Nausea/Vomiting/Diarrhea <Jose Raul Yanez DO - Last Filed: 03/25/21 03:12> Lab Data Result diagrams: 03/23/21 19:00 03/23/21 19:00 Labs: Lab Results 03/23/21 03/23/21 03/23/21 Range/Units 18:55 19:00 19:00 WBC 9.8 (4.5-11.0) X10^3/uL RBC 4.70 (4.5-5.9) X10^6/uL Hgb 16.1 (13.5-17.5) g/dL Hct 46.3 (41-53) % MCV 98.5 (80-100) fL MCH 34.2 H (26-34) PG MCHC 34.7 (30-36) % RDW 12.4 (11.6-14.8) % Plt Count 208 (150-400) X10^3/uL Neut % (Auto) 74.0 (50-75) % Lymph % (Auto) 16.7 L (25-40) % [place] % (Auto) 8.2 (3-14) % Eos % (Auto) 0.6 L (2-4) % Baso % (Auto) 0.5 (0-2) % Neut # (Auto) 7200 H (2688-9541) /uL Lymph # (Auto) 1600 (7270-1476) /uL [place] # (Auto) 800 (0-900) /uL Eos # (Auto) 100 (0-450) /uL Baso # (Auto) 100 (0-100) /uL Sodium 139 (137-145) mmol/L Potassium 3.8 (3.4-5.1) mmol/L Chloride 107 (98-107) mmol/L Carbon Dioxide 18 L (22-32) mmol/L BUN 9 (9-20) mg/dL Creatinine 0.56 L (0.66-1.25) mg/dL Estimated GFR > 60.0 (>60) mL/min BUN/Creatinine Ratio 16.1 (6-22) Glucose 138 H (70-100) mg/dL Calcium 9.5 (8.4-10.2) mg/dL Total Bilirubin 0.4 (0.2-1.3) mg/dL AST 97 H (17-59) IU/L ALT 95 H (<50) IU/L Alkaline Phosphatase 92 (38-126) U/L Total Protein 7.6 (6.3-8.2) g/dL Albumin 4.6 (3.5-5.0) g/dL Globulin 3.0 (1.7-4.1) g/dL Albumin/Globulin Ratio 1.5 (1.0-2.8) TSH (0.47-4.68) uIU/mL Free T4 (0.78-2.19) ng/dL Urine Color Urine Appearance Urine pH (4.5-8.0) Ur Specific [place] (1.000-1.035) Urine Protein (Negative) Urine Glucose (UA) (Negative) g/dL Urine Ketones (NEGATIVE) Urine Occult Blood (Negative) Urine Nitrate (Negative) Urine Bilirubin (NEGATIVE) Urine Urobilinogen (0.2) E.U./dL Ur Leukocyte Esterase (NEGATIVE) Urine RBC (0-5/HPF) Urine WBC (0-5/HPF) Urine Bacteria (None) Ur Culture Indicated? Salicylates < 1.0 (<20) mg/dL U Opiates 300ng/mL cut (Negative) Ur Oxycodone Screen (Negative) Urine Methadone Screen (Negative) Acetaminophen < 10 L (10-30) ug/mL Ur Barbiturates Screen (Negative) U Tricyclic Antidepress (Negative) Ur Phencyclidine Scrn (Negative) Ur Amphetamines Screen (Negative) U Methamphetamines Scrn (Negative) Ur MDMA Scrn (Ecstasy) (Negative) U Benzodiazepines Scrn (Negative) Urine Cocaine Screen (Negative) U Marijuana (THC) Screen (Negative) Ethyl Alcohol 151 H ( - 10) mg/dL SARS-CoV-2 (PCR) Negative (Negative) 03/23/21 03/23/21 03/23/21 Range/Units 19:00 19:00 19:00 WBC (4.5-11.0) X10^3/uL RBC (4.5-5.9) X10^6/uL Hgb (13.5-17.5) g/dL Hct (41-53) % MCV (80-100) fL MCH (26-34) PG MCHC (30-36) % RDW (11.6-14.8) % Plt Count (150-400) X10^3/uL Neut % (Auto) (50-75) % Lymph % (Auto) (25-40) % [place] % (Auto) (3-14) % Eos % (Auto) (2-4) % Baso % (Auto) (0-2) % Neut # (Auto) (7143-2229) /uL Lymph # (Auto) (9911-9511) /uL [place] # (Auto) (0-900) /uL Eos # (Auto) (0-450) /uL Baso # (Auto) (0-100) /uL Sodium (137-145) mmol/L Potassium (3.4-5.1) mmol/L Chloride (98-107) mmol/L Carbon Dioxide (22-32) mmol/L BUN (9-20) mg/dL Creatinine (0.66-1.25) mg/dL Estimated GFR (>60) mL/min BUN/Creatinine Ratio (6-22) Glucose (70-100) mg/dL Calcium (8.4-10.2) mg/dL Total Bilirubin (0.2-1.3) mg/dL AST (17-59) IU/L ALT (<50) IU/L Alkaline Phosphatase (38-126) U/L Total Protein (6.3-8.2) g/dL Albumin (3.5-5.0) g/dL Globulin (1.7-4.1) g/dL Albumin/Globulin Ratio (1.0-2.8) TSH 0.082 L (0.47-4.68) uIU/mL Free T4 1.08 (0.78-2.19) ng/dL Urine Color Yellow Urine Appearance Clear Urine pH 6.5 (4.5-8.0) Ur Specific [place] <=1.005 (1.000-1.035) Urine Protein Negative (Negative) Urine Glucose (UA) Negative (Negative) g/dL Urine Ketones Negative (NEGATIVE) Urine Occult Blood Negative (Negative) Urine Nitrate Negative (Negative) Urine Bilirubin Negative (NEGATIVE) Urine Urobilinogen 0.2 (0.2) E.U./dL Ur Leukocyte Esterase Negative (NEGATIVE) Urine RBC None seen (0-5/HPF) Urine WBC None seen (0-5/HPF) Urine Bacteria None seen (None) Ur Culture Indicated? Cult not indicated Salicylates (<20) mg/dL U Opiates 300ng/mL cut Negative (Negative) Ur Oxycodone Screen Negative (Negative) Urine Methadone Screen Negative (Negative) Acetaminophen (10-30) ug/mL Ur Barbiturates Screen Negative (Negative) U Tricyclic Antidepress Negative (Negative) Ur Phencyclidine Scrn Negative (Negative) Ur Amphetamines Screen Negative (Negative) U Methamphetamines Scrn Negative (Negative) Ur MDMA Scrn (Ecstasy) Negative (Negative) U Benzodiazepines Scrn Negative (Negative) Urine Cocaine Screen Negative (Negative) U Marijuana (THC) Screen Negative (Negative) Ethyl Alcohol ( - 10) mg/dL SARS-CoV-2 (PCR) (Negative) <Constance William, DO - Last Filed: 03/24/21 19:44> Lab Data Labs: Lab Results 03/23/21 03/23/21 03/23/21 Range/Units 18:55 19:00 19:00 WBC 9.8 (4.5-11.0) X10^3/uL RBC 4.70 (4.5-5.9) X10^6/uL Hgb 16.1 (13.5-17.5) g/dL Hct 46.3 (41-53) % MCV 98.5 (80-100) fL MCH 34.2 H (26-34) PG MCHC 34.7 (30-36) % RDW 12.4 (11.6-14.8) % Plt Count 208 (150-400) X10^3/uL Neut % (Auto) 74.0 (50-75) % Lymph % (Auto) 16.7 L (25-40) % [place] % (Auto) 8.2 (3-14) % Eos % (Auto) 0.6 L (2-4) % Baso % (Auto) 0.5 (0-2) % Neut # (Auto) 7200 H (0963-6539) /uL Lymph # (Auto) 1600 (7148-1133) /uL [place] # (Auto) 800 (0-900) /uL Eos # (Auto) 100 (0-450) /uL Baso # (Auto) 100 (0-100) /uL Sodium 139 (137-145) mmol/L Potassium 3.8 (3.4-5.1) mmol/L Chloride 107 (98-107) mmol/L Carbon Dioxide 18 L (22-32) mmol/L BUN 9 (9-20) mg/dL Creatinine 0.56 L (0.66-1.25) mg/dL Estimated GFR > 60.0 (>60) mL/min BUN/Creatinine Ratio 16.1 (6-22) Glucose 138 H (70-100) mg/dL Calcium 9.5 (8.4-10.2) mg/dL Total Bilirubin 0.4 (0.2-1.3) mg/dL AST 97 H (17-59) IU/L ALT 95 H (<50) IU/L Alkaline Phosphatase 92 (38-126) U/L Total Protein 7.6 (6.3-8.2) g/dL Albumin 4.6 (3.5-5.0) g/dL Globulin 3.0 (1.7-4.1) g/dL Albumin/Globulin Ratio 1.5 (1.0-2.8) TSH (0.47-4.68) uIU/mL Free T4 (0.78-2.19) ng/dL Urine Color Urine Appearance Urine pH (4.5-8.0) Ur Specific [place] (1.000-1.035) Urine Protein (Negative) Urine Glucose (UA) (Negative) g/dL Urine Ketones (NEGATIVE) Urine Occult Blood (Negative) Urine Nitrate (Negative) Urine Bilirubin (NEGATIVE) Urine Urobilinogen (0.2) E.U./dL Ur Leukocyte Esterase (NEGATIVE) Urine RBC (0-5/HPF) Urine WBC (0-5/HPF) Urine Bacteria (None) Ur Culture Indicated? Salicylates < 1.0 (<20) mg/dL U Opiates 300ng/mL cut (Negative) Ur Oxycodone Screen (Negative) Urine Methadone Screen (Negative) Acetaminophen < 10 L (10-30) ug/mL Ur Barbiturates Screen (Negative) U Tricyclic Antidepress (Negative) Ur Phencyclidine Scrn (Negative) Ur Amphetamines Screen (Negative) U Methamphetamines Scrn (Negative) Ur MDMA Scrn (Ecstasy) (Negative) U Benzodiazepines Scrn (Negative) Urine Cocaine Screen (Negative) U Marijuana (THC) Screen (Negative) Ethyl Alcohol 151 H ( - 10) mg/dL SARS-CoV-2 (PCR) Negative (Negative) 03/23/21 03/23/21 03/23/21 Range/Units 19:00 19:00 19:00 WBC (4.5-11.0) X10^3/uL RBC (4.5-5.9) X10^6/uL Hgb (13.5-17.5) g/dL Hct (41-53) % MCV (80-100) fL MCH (26-34) PG MCHC (30-36) % RDW (11.6-14.8) % Plt Count (150-400) X10^3/uL Neut % (Auto) (50-75) % Lymph % (Auto) (25-40) % [place] % (Auto) (3-14) % Eos % (Auto) (2-4) % Baso % (Auto) (0-2) % Neut # (Auto) (2963-7429) /uL Lymph # (Auto) (4817-8460) /uL [place] # (Auto) (0-900) /uL Eos # (Auto) (0-450) /uL Baso # (Auto) (0-100) /uL Sodium (137-145) mmol/L Potassium (3.4-5.1) mmol/L Chloride (98-107) mmol/L Carbon Dioxide (22-32) mmol/L BUN (9-20) mg/dL Creatinine (0.66-1.25) mg/dL Estimated GFR (>60) mL/min BUN/Creatinine Ratio (6-22) Glucose (70-100) mg/dL Calcium (8.4-10.2) mg/dL Total Bilirubin (0.2-1.3) mg/dL AST (17-59) IU/L ALT (<50) IU/L Alkaline Phosphatase (38-126) U/L Total Protein (6.3-8.2) g/dL Albumin (3.5-5.0) g/dL Globulin (1.7-4.1) g/dL Albumin/Globulin Ratio (1.0-2.8) TSH 0.082 L (0.47-4.68) uIU/mL Free T4 1.08 (0.78-2.19) ng/dL Urine Color Yellow Urine Appearance Clear Urine pH 6.5 (4.5-8.0) Ur Specific [place] <=1.005 (1.000-1.035) Urine Protein Negative (Negative) Urine Glucose (UA) Negative (Negative) g/dL Urine Ketones Negative (NEGATIVE) Urine Occult Blood Negative (Negative) Urine Nitrate Negative (Negative) Urine Bilirubin Negative (NEGATIVE) Urine Urobilinogen 0.2 (0.2) E.U./dL Ur Leukocyte Esterase Negative (NEGATIVE) Urine RBC None seen (0-5/HPF) Urine WBC None seen (0-5/HPF) Urine Bacteria None seen (None) Ur Culture Indicated? Cult not indicated Salicylates (<20) mg/dL U Opiates 300ng/mL cut Negative (Negative) Ur Oxycodone Screen Negative (Negative) Urine Methadone Screen Negative (Negative) Acetaminophen (10-30) ug/mL Ur Barbiturates Screen Negative (Negative) U Tricyclic Antidepress Negative (Negative) Ur Phencyclidine Scrn Negative (Negative) Ur Amphetamines Screen Negative (Negative) U Methamphetamines Scrn Negative (Negative) Ur MDMA Scrn (Ecstasy) Negative (Negative) U Benzodiazepines Scrn Negative (Negative) Urine Cocaine Screen Negative (Negative) U Marijuana (THC) Screen Negative (Negative) Ethyl Alcohol ( - 10) mg/dL SARS-CoV-2 (PCR) (Negative) MDM Narrative Medical decision making narrative: 25-year-old male with known history of opiate and alcohol abuse who is seeking detox. Patient was seen by Dr. Yanez overnight and signed out to myself. Patient seen, evaluated independently examined by myself. Patient is medically cleared for detox. Awaiting [employer] for assistance as detox facilities requested their note. Patient did receive phenobarbital, clonidine and Zofran overnight. Patient's vitals here are reassuring but he states he does feel shaky and was given 1 dose of oral benzod iazepine. Patient elects to return home. He is interested in continuing to stop in would be open to a prescription for Librium as well as short-term prescription for some clonidine for his opiate withdrawal. We do not have capacity to prescribe Suboxone and have him shortly involved in a program. Patient is aware that these programs are available locally and he is open to having our social services coordinator contact him via phone for additional resources. Discharge Plan Departure Patient Disposition: Home Clinical Impression: Opiate withdrawal Instructions: DI for Substance Use Disorder Activity Restrictions/Additional Instructions: You may wish to contact detox centers on her own and see if they have bed availability. I will also ask for social services coordinator to reach out with you with some options for resources. Take medication as prescribed. This medication can make you sleepy do not drive, perform hazardous activities or make any major decisions while taking it. Do not drink alcohol while taking this medication. If you do drink alcohol stop taking the Librium You may take clonidine for narcotic withdrawal. [facility]. Please return for altered mental status, new chest pain, shortness of breath, persistent vomiting, seizure activity, hallucinations or other new or concerning symptoms. Prescriptions: New chlordiazepoxide HCl 25 mg capsule 25 mg PO Q6H Qty: 14 RF: 0 clonidine HCl 0.1 mg tablet 0.1 mg PO BID Qty: 6 RF: 0 No Action lorazepam [Ativan] 1 mg tablet See Rx Instructions .ROUTE .COMPLEX PRN (Reason: alcohol withdrawal) Qty: 19 RF: 0 lorazepam [Ativan] 1 mg tablet 1 mg PO DAILY PRN (Reason: alcohol withdrawal) Qty: 20 RF: 0 lorazepam 1 mg tablet 1 mg PO DAILY PRN (Reason: alcohol withdrawal) Qty: 20 RF: 0 lorazepam [Ativan] 1 mg tablet See Rx Instructions .ROUTE .COMPLEX PRN (Reason: alcohol withdrawal) Qty: 19 RF: 0 lorazepam [Ativan] 1 mg tablet See Rx Instructions .ROUTE .COMPLEX Qty: 19 RF: 0
--- NOTE | 2021-03-23 21:19 | PC.NURSE ---
Gave Pt a turkey sandwich, string cheese, and pudding.
[2021-03-23 21:52] VITALS: BP 121/75
[2021-03-23] MEDS: ONDANSETRON 4 MG ODT SL (21:52)
[2021-03-23 22:00] VITALS: BP 122/70
[2021-03-23 22:30] VITALS: BP 140/76
[2021-03-23 23:00] VITALS: BP 137/75
[2021-03-23 23:46] LABS: Ur Creatinine NEG (Normal)
[2021-03-23 23:47] LABS: UR Morphine/Opiate cutoff 300 Negative (Negative); Urine Amphetamines Negative (Negative); Urine Barbiturates Negative (Negative); Urine Benzodiazepines Negative (Negative); Urine Cocaine Negative (Negative); Urine MDMA Negative (Negative); Urine Methadone Negative (Negative); Urine Methamphetamines Negative (Negative); Urine Oxycodone Negative (Negative); Urine Phencyclidine Negative (Negative); Urine Tetrahydrocannabinol Negative (Negative); Urine Tricyclic Antidepressant Negative (Negative); Urine pH 4 (Normal)
[2021-03-24] VITALS (23 sets, daily range): BP systolic 120–136; BP diastolic 64–82; PULSE 54–83; RESP 17–24; O2SAT 96–100
[2021-03-24] MEDS: PHENobarbital 65 MG/ML VIAL 260 MG IV (00:37)
[2021-03-24] MEDS: PHENobarbital 65 MG/ML VIAL 130 MG IV (05:31)
[2021-03-24] MEDS: chlordiazePOXIDE 25 MG CAPSULE PO (09:09)
== END 2021-03-24 10:01 | disposition home or self-care (01) ==
PROVIDERS: Emergency Medicine; Emergency Provider Emergency Medicine
DX: F11.23 Opioid dependence with withdrawal (principal); F10.20 Alcohol dependence, uncomplicated; Y90.6 Blood alcohol level of 120-199 mg/100 ml; Z20.822 Contact with and (suspected) exposure to COVID-19
CPT/HCPCS: 80053; 80305; 80320; 80329; 81001; 84439; 84443; 85025; 87635; 96374; 96376; 99284; C9803; G0480; J2560

== ENCOUNTER 2021-05-08 08:44 | Emergency (ER) | payer OTHER, MEDICAID, SELFPAY ==
[2021-05-08 08:45] VITALS: BP 158/88; PULSE 60; RESP 20; TEMP 36.7; O2SAT 97; BMI 21.8
--- NOTE | 2021-05-08 08:46 | ED_ITS ---
HPI - Psych <Constance William DO - Last Filed: 05/09/21 07:31> General Chief Complaint: Psychiatric Symptoms Stated Complaint: found in hotel parking lot non verbal Time Seen by Provider: 05/08/21 08:45 Source: patient Mode of arrival: EMS Limitations: other (patient does not answer any questions.) History of Present Illness HPI Narrative: This is an assumed 28-year-old male who is alert, ambulatory tearful and does not answer questions or talk. Patient was found sleeping in a vehicle at 1 of the local motels. PD was contacted who was present and patient was nonverbal with them. They contacted EMS who evaluated patient. His vital signs were stable but he will not give a name, age or answer any questions. He is tearful but has been cooperative for them. Patient here in the department does not answer any questions but does appear tearful. He does not have any obvious trauma. He is alert, he stood up the gurney and has sat on the side of the bed here in the department. Related Data Previous Rx's Medication Instructions Recorded lorazepam 1 mg tablet (Ativan) 1 mg PO DAILY PRN #20 tab 03/17/20 lorazepam 1 mg tablet 1 mg PO DAILY PRN #20 tab 04/09/20 lorazepam 1 mg tablet (Ativan) See Rx Instructions .ROUTE 07/30/20 .COMPLEX PRN #19 tab lorazepam 1 mg tablet (Ativan) See Rx Instructions .ROUTE 08/02/20 .COMPLEX PRN #19 tab lorazepam 1 mg tablet (Ativan) See Rx Instructions .ROUTE 08/19/20 .COMPLEX #19 tab chlordiazepoxide HCl 25 mg capsule 25 mg PO Q6H #14 cap 03/24/21 clonidine HCl 0.1 mg tablet 0.1 mg PO BID #6 tab 03/24/21 Allergies Allergy/AdvReac Type Severity Reaction Status Date / Time No Known Drug Allergies Allergy Verified 05/08/21 13:00 Review of Systems <Constance William DO - Last Filed: 05/09/21 07:31> Review of Systems ROS Unobtainable: Unobtainable due to mental condition Patient History <Constance William DO - Last Filed: 05/09/21 07:31> Medical History Alcohol abuse Cervical radiculopathy Elevated transaminase level Hypokalemia Neck pain on right side Surgical History No history of previous surgery Family History Father Age: 54 Diabetes mellitus Hypertension Social History Smoking Status: Current every day smoker substance use type: marijuana additional social history: Previous heavy EtOH use, occasional THC Exam <Constance William DO - Last Filed: 05/09/21 07:31> Narrative Exam Narrative: GEN: well nourished, slightly disheveledmale, alert, patient a ppears to be in mild distress. Patient is tearful but does not answer any questions. Patient is cooperative on exam for the most part. HEENT: Atraumatic, pupils are equal round and 8mm bilaterally, non-reactive to light, extraocular movements are intact, nares are clear, throat is clear without any exudates, erythema, tonsillar enlargement or uvular deviation HEART: Regular rate and rhythm without murmur, clicks, rubs. No carotid bruits, pulses are equal in upper and lower extremities LUNGS:Lungs clear to auscultation, no wheezes, rales, crackles, chest moves symmetrically ABD:bowel sounds normal, soft, non-tender, no guarding, rebound, rigidity, no masses noted, no hepatosplenomegaly :No CVA tenderness BACK: No cervical, thoracic or lumbar vertebral point tenderness. Patient has normal range of motion. MSCL: Non-tender, no muscle atrophy, muscles strength 5/5 upper and lower ex tremities, full range of motion, gait not tested. NEURO:CN 2-12 intact, sensation normal SKIN: No rash, erythema or other skin changes noted. Initial Vital Signs Initial Vital Signs: Vital Signs Temperature 98.1 F 05/08/21 08:45 Pulse Rate 60 05/08/21 08:45 Respiratory Rate 20 05/08/21 08:45 Blood Pressure 158/88 H 05/08/21 08:45 Pulse Oximetry 97 05/08/21 08:45 <Jose Raul Yanez DO - Last Filed: 05/09/21 03:03> Initial Vital Signs Initial Vital Signs: Vital Signs Temperature 98.1 F 05/08/21 08:45 Pulse Rate 60 05/08/21 08:45 Respiratory Rate 20 05/08/21 08:45 Blood Pressure 158/88 H 05/08/21 08:45 Pulse Oximetry 97 05/08/21 08:45 Course <Constance William, DO - Last Filed: 05/09/21 07:31> Orders Ordered: Discontinued Medications Diphenhydramine HCl (Diphenhydramine 50 Mg/Ml Vial) 50 mg IM NOW ONE Stop: 05/08/21 10:40 Haloperidol (Haloperidol 5 Mg/Ml Vial) 10 mg IM NOW ONE Stop: 05/08/21 10:40 Lorazepam (Lorazepam 2 Mg/Ml Inj) 1 mg IM NOW ONE Stop: 05/08/21 10:40 Reevaluation(s) Reevaluation #1: Patient stood up and came stumbling another room towards 1 of the staff members collapsed to the floor. He is alert, he has full range of motion of his extremities and does not appear to be physically attacking anyone but he is not cooperative noted attempted to moved back to the room is not cooperative. Patient the of his 1st name adjacent but does not give any additional history about his current circumstances or situation or his last name. Patient was moved to room 13. We were able to obtain blood. Reevaluation #2: Patient had asked nursing staff her she could leave. They came to evaluate the patient. He can tell me he lives in [place]. He knew that he was at a hospital but was unsure which location or what town he was in currently. He had indurated to the social contact worker that he had taken LSD earlier today. When I asked him this seemed to given affirmative. When I asked him if he had some place to go for someone to come pick him up he does not answer. He may well be homeless but at this time he cannot confirm or coordinate a plan if we were to discharge him to so field be appropriate to continue to monitor until he is in a more stable condition. Time: 15:10 Vital Signs Vital signs: Vital Signs - 8 hr 05/08/21 20:03 05/08/21 22:06 Pulse Rate 80 80 Respiratory Rate 16 18 Blood Pressure 140/93 H 134/84 Pulse Oximetry 96 98 <Jose Raul Yanez, DO - Last Filed: 05/09/21 03:03> Course Course Narrative: Patient received in sign-out from Dr. William. I have performed an independent history and physical. The patient is resting comfortably, answering questions without slurring words and able to ambulate with a steady gait. He states that he took some acid, perhaps 2 hits in this is an abnormal reaction for him but he feels much better now. He has no suicidal or homicidal ideations. He is willing to speak with social work who has placed calls to his parent's house. Orders Ordered: Discontinued Medications Diphenhydramine HCl (Diphenhydramine 50 Mg/Ml Vial) 50 mg IM NOW ONE Stop: 05/08/21 10:40 Haloperidol (Haloperidol 5 Mg/Ml Vial) 10 mg IM NOW ONE Stop: 05/08/21 10:40 Lorazepam (Lorazepam 2 Mg/Ml Inj) 1 mg IM NOW ONE Stop: 05/08/21 10:40 Vital Signs Vital signs: Vital Signs - 8 hr 05/08/21 20:03 05/08/21 22:06 Pulse Rate 80 80 Respiratory Rate 16 18 Blood Pressure 140/93 H 134/84 Pulse Oximetry 96 98 MDM - Psych <Constance William, DO - Last Filed: 05/09/21 07:31> Lab Data Result diagrams: 05/08/21 11:27 05/08/21 11:27 Labs: Lab Results 05/08/21 05/08/21 05/08/21 Range/Units 10:45 11:27 11:27 WBC 10.6 (4.5-11.0) X10^3/uL RBC 4.92 (4.5-5.9) X10^6/uL Hgb 17.0 (13.5-17.5) g/dL Hct 48.4 (41-53) % MCV 98.3 (80-100) fL MCH 34.5 H (26-34) PG MCHC 35.2 (30-36) % RDW 12.9 (11.6-14.8) % Plt Count 224 (150-400) X10^3/uL Neut % (Auto) 77.0 H (50-75) % Lymph % (Auto) 15.7 L (25-40) % [place] % (Auto) 6.2 (3-14) % Eos % (Auto) 0.3 L (2-4) % Baso % (Auto) 0.8 (0-2) % Neut # (Auto) 8100 H (4305-1024) /uL Lymph # (Auto) 1700 (8844-7697) /uL [place] # (Auto) 700 (0-900) /uL Eos # (Auto) 0 (0-450) /uL Baso # (Auto) 100 (0-100) /uL Sodium 143 (137-145) mmol/L Potassium 4.1 (3.4-5.1) mmol/L Chloride 107 (98-107) mmol/L Carbon Dioxide 30 (22-32) mmol/L BUN 15 (9-20) mg/dL Creatinine 0.79 (0.66-1.25) mg/dL Estimated GFR > 60.0 (>60) mL/min BUN/Creatinine Ratio 19.0 (6-22) Glucose 108 H (70-100) mg/dL Calcium 9.6 (8.4-10.2) mg/dL Total Bilirubin 0.8 (0.2-1.3) mg/dL Conjugated Bilirubin 0.0 (0.0-0.3) md/dL Unconjugated Bilirubin 0.6 (0.0-1.1) mg/dL AST 53 (17-59) IU/L ALT 50 H (<50) IU/L Alkaline Phosphatase 103 (38-126) U/L Total Protein 8.1 (6.3-8.2) g/dL Albumin 4.9 (3.5-5.0) g/dL Globulin 3.2 (1.7-4.1) g/dL Albumin/Globulin Ratio 1.5 (1.0-2.8) Salicylates < 1.0 (<20) mg/dL Acetaminophen < 10 L (10-30) ug/mL Ethyl Alcohol < 10 ( - 10) mg/dL SARS-CoV-2 (PCR) Negative (Negative) MDM Narrative Medical decision making narrative: This is a a assumed 28-year-old male who was found hotel parking lot patient is quite tearful and upset and does not answer questions. No history is available for the patient and he is not giving any at this time. This seems to be potentially a psychiatric issue as he so tearful. After some period of time patient admits to LSD use to our social contact worker and seems to be affirmative to this to me as well. At this time he has not really been able to verbalize plan or a safe place for him to go to to be discharged so at this time patient will be continued to be monitored and signed out to Dr. Yanez. He has not given a urine sample but his otherwise are reassuring and his vitals have been stable throughout his stay here in the department. He does have a history of alcohol use according to prior GARY reports but does not appear to be in any withdrawal at this time. <Jose Raul Yanez, DO - Last Filed: 05/09/21 03:03> Lab Data Labs: Lab Results 05/08/21 05/08/21 05/08/21 Range/Units 10:45 11:27 11:27 WBC 10.6 (4.5-11.0) X10^3/uL RBC 4.92 (4.5-5.9) X10^6/uL Hgb 17.0 (13.5-17.5) g/dL Hct 48.4 (41-53) % MCV 98.3 (80-100) fL MCH 34.5 H (26-34) PG MCHC 35.2 (30-36) % RDW 12.9 (11.6-14.8) % Plt Count 224 (150-400) X10^3/uL Neut % (Auto) 77.0 H (50-75) % Lymph % (Auto) 15.7 L (25-40) % [place] % (Auto) 6.2 (3-14) % Eos % (Auto) 0.3 L (2-4) % Baso % (Auto) 0.8 (0-2) % Neut # (Auto) 8100 H (8360-0898) /uL Lymph # (Auto) 1700 (9659-8521) /uL [place] # (Auto) 700 (0-900) /uL Eos # (Auto) 0 (0-450) /uL Baso # (Auto) 100 (0-100) /uL Sodium 143 (137-145) mmol/L Potassium 4.1 (3.4-5.1) mmol/L Chloride 107 (98-107) mmol/L Carbon Dioxide 30 (22-32) mmol/L BUN 15 (9-20) mg/dL Creatinine 0.79 (0.66-1.25) mg/dL Estimated GFR > 60.0 (>60) mL/min BUN/Creatinine Ratio 19.0 (6-22) Glucose 108 H (70-100) mg/dL Calcium 9.6 (8.4-10.2) mg/dL Total Bilirubin 0.8 (0.2-1.3) mg/dL Conjugated Bilirubin 0.0 (0.0-0.3) md/dL Unconjugated Bilirubin 0.6 (0.0-1.1) mg/dL AST 53 (17-59) IU/L ALT 50 H (<50) IU/L Alkaline Phosphatase 103 (38-126) U/L Total Protein 8.1 (6.3-8.2) g/dL Albumin 4.9 (3.5-5.0) g/dL Globulin 3.2 (1.7-4.1) g/dL Albumin/Globulin Ratio 1.5 (1.0-2.8) Salicylates < 1.0 (<20) mg/dL Acetaminophen < 10 L (10-30) ug/mL Ethyl Alcohol < 10 ( - 10) mg/dL SARS-CoV-2 (PCR) Negative (Negative) Discharge Plan Departure Patient Disposition: Home Clinical Impression: Acute transient psychotic disorder, Illicit drug use Instructions: DI for Psychosis Activity Restrictions/Additional Instructions: *You have been diagnosed with [acute, transient psychosis related to use of street drugs *What to do: *Please continue to take your regular medications as directed. [ ] New medication prescriptions sent to your pharmacy: [ ] [ ] New medication written as a paper prescription [x ] No new medications given *Please follow up with your primary care provider in 2-3 days, call for an appointment. Let them know you were seen in the Emergency Department and that we ask that you be seen in follow up. We will electronically transmit a record of today's note if your PCP is in our system *If you do not have a primary care provider please contact the [facility] Resource line at [phone]. They will ask some questions about your medical history and help get you set up with a doctor in the community. *Return to Emergency Department if you should have any new, worsening or concerning symptoms, such as [fever greater than 101 F, shaking chills, worsening pain, persistent vomiting or other bothersome symptoms] Prescriptions: No Action lorazepam [Ativan] 1 mg tablet See Rx Instructions .ROUTE .COMPLEX PRN (Reason: alcohol withdrawal) Qty: 19 RF: 0 chlordiazepoxide HCl 25 mg capsule 25 mg PO Q6H Qty: 14 RF: 0 clonidine HCl 0.1 mg tablet 0.1 mg PO BID Qty: 6 RF: 0 lorazepam [Ativan] 1 mg tablet 1 mg PO DAILY PRN (Reason: alcohol withdrawal) Qty: 20 RF: 0 lorazepam 1 mg tablet 1 mg PO DAILY PRN (Reason: alcohol withdrawal) Qty: 20 RF: 0 lorazepam [Ativan] 1 mg tablet See Rx Instructions .ROUTE .COMPLEX PRN (Reason: alcohol withdrawal) Qty: 19 RF: 0 lorazepam [Ativan] 1 mg tablet See Rx Instructions .ROUTE .COMPLEX Qty: 19 RF: 0 Referrals: [facility] [Outside] [facility] [Outside] [facility] [Outside]
--- NOTE | 2021-05-08 09:06 | PC.NURSE ---
Pt sitting on side of bed, not speaking to staff, tearful. Educated pt on orders for tests and reasons, pt neither responds nor nods head. Pt put head back for covid nasal swab but after insertion pulled head away and placed between hands. Asked pt if agreeable for blood draw but pt keeps hands to self and sleeves down.
--- NOTE | 2021-05-08 09:23 | PC.NURSE ---
Pt will not answer any of staff questions, he will occasionally look at me when I talk to him but will not say anything. Pt given water and OJ,breakfast tray ordered.
--- NOTE | 2021-05-08 09:54 | PC.NURSE ---
Pt continues to not speak, although makes eye contact when nurse talks. Food and drinks at bedside untouched. Asked consent to draw blood on pt and he put his arms under the blanket. Another warm blanket provided.
--- NOTE | 2021-05-08 10:56 | PC.NURSE ---
Patient started walking out of his room to approach me. His gait was unsteady and his motions were erratic. I asked the patient what was wrong and he did not say anything and began to charge towards me in the same erratic way. The patient did not answer any of my questions regarding his needs at that time and continued to come towards me with his hands out and reaching for my throat and head. I backed up into the copy machine because the patient's behavior was impulsive and aggressive. The patient laid himself down onto the floor. Two RNs and the physician came to my assistance. [place] Police Department was notified, but I was told that because of the new laws, they are not able to assist unless the patient physically assaults staff.
[2021-05-08 11:24] LABS: COVID19 -Nasal RAPID Negative (Negative)
[2021-05-08 11:50] LABS: Add Manual Diff / Slide Review NO; Basophils Absolute Auto 100 /uL (0-100); Basophils Percent Auto 0.8 % (0-2); Eosinophils Absolute Auto 0 /uL (0-450); Eosinophils Percent Auto 0.3 % (2-4); Hematocrit 48.4 % (41-53); Lymphocytes Absolute Auto 1700 /uL (1100-4500); Lymphocytes Percent Auto 15.7 % (25-40); Mean Corpuscular HGB Conc 35.2 % (30-36); Mean Corpuscular Hemoglobin 34.5 PG (26-34); Mean Corpuscular Volume 98.3 fL (80-100); Monocytes Absolute Auto 700 /uL (0-900); Monocytes Percent Auto 6.2 % (3-14); Neutrophils Absolute Auto 8100 /uL (1500-7000); Platelet Count 224 X10^3/uL (150-400); Red Blood Cell Count 4.92 X10^6/uL (4.5-5.9); Red Cell Distribution Width 12.9 % (11.6-14.8); White Blood Cell Count 10.6 X10^3/uL (4.5-11.0)
[2021-05-08 12:01] LABS: Acetaminophen < 10 ug/mL (10-30); Alanine Aminotransferase 50 IU/L (<50); Albumin 4.9 g/dL (3.5-5.0); Albumin Globulin Ratio 1.5 (1.0-2.8); Alkaline Phosphatase 103 U/L (38-126); Aspartate Aminotransferase 53 IU/L (17-59); Bilirubin Total 0.8 mg/dL (0.2-1.3); Bilirubin Unconjugated 0.6 mg/dL (0.0-1.1); Blood Urea Nitrogen 15 mg/dL (9-20); Calcium 9.6 mg/dL (8.4-10.2); Carbon Dioxide 30 mmol/L (22-32); Chloride 107 mmol/L (98-107); Estimated Glomerular Filt Rate > 60.0 mL/min (>60); Ethanol (ETOH) < 10 mg/dL; Globulin 3.2 g/dL (1.7-4.1); Glucose 108 mg/dL (70-100); HEMOLYSIS < 15 (0-50); Potassium 4.1 mmol/L (3.4-5.1); Salicylate < 1.0 mg/dL (<20); Sodium 143 mmol/L (137-145); Total Protein 8.1 g/dL (6.3-8.2)
--- NOTE | 2021-05-08 12:35 | PC.NURSE ---
WASTEWATER TREATMENT ENGINEER in room at 1235
--- NOTE | 2021-05-08 15:05 | PC.NURSE ---
Pt with urinal at bedside, previously educated on need for urine sample and frequently offered bathroom assistance, stood in corner and independently urinated on floor. Urinal offered by sitter and nurse during pee but pt declined. Pt offered new clothes and room cleaned, re-educated on need for urine specimen and urinal again set at bedside.
--- NOTE | 2021-05-08 16:04 | PC.NURSE ---
pt awake and verbal. aware of being in ED but wants to leave. provider and SUPERVISOR ORDER TAKERS in room discussing possible dc
[2021-05-08 16:16] VITALS: BP 131/63; RESP 16
--- NOTE | 2021-05-08 16:17 | PC.NURSE ---
Per CNC MILL PROGRAMMER pt stated he did not feel well, attempted to further assess pt but he does not answer. Pt willing to have blood pressure taken but hid his fingers when spo2 probe introduced.
--- NOTE | 2021-05-08 17:00 | PC.NURSE ---
pt refused dinner. has not eaten during time in ED
--- NOTE | 2021-05-08 17:11 | CM.SWNOTE ---
RECORDING STUDIO SETUP WORKER Assessment RECORDING STUDIO SETUP WORKER - Fire Boat Engineer Assessment RECORDING STUDIO SETUP WORKER/Fire Boat Engineer Assessment Time Spent with Patient Start date 05/08/21 Visit Start Time 12:35 End date 05/08/21 Visit End Time 13:00 Total time Care Management spent on 25+ patient visit-in minutes Substance Abuse Screening Include Onset, Duration, Intensity Presenting Problem Patient presents to the ED via EMS due to concern for patient sitting in motel parking lot. Patient presents not speaking with anyone and not providing any information. Precipitating Event(s) Patient later endorses that he recalls doing Acid by himself last evening that the hotel. Patient Strengths Patient has presented as calm for several hours Current Behavioral Health Provider(s) None reported Include Facility, Provider, Ph. # Family Hx of Behavioral Abuse None reported Rehab Facilities? ((Date(s), Location(s) None reported. Per EMR patient ) has hx of going to detox facilities for ETOH withdrawals. History of Withdrawal? Seizures? Per EMR, patient has hx of nausea, vomiting, diarrhea, agitation and sweating. Longest Period of Sobriety Unknown Psychosocial information & Support Patient is 26 y/o male who Systems endorses he is from [place] but does not state where or who he lives with. Patient does not endorse any supports and states no one knows he is at the hospital and he does not anyone notified that he is at the hospital. School/Work Unknown Legal Concerns Legal Matters - Outstanding Issues Unknown, not reported Mental Status Orientation (Person/Place/Time) Patient presents as oriented to self, not person, place or time. Stated Mood None stated Affect (Congruent with Mood?) Flat, full range Thought Content - Specify/Describe None reported Obsessions, Delusions, Hallucinations Thought Processes (Piaukxj-Lzlofeya-Kutb Selective thought blocking Wjdlfrcl-Rpqgbixa-Tqydsjjmpn- Dpgtawqrvxanmq-Kwuniwb-Hsrarwtqtwuo- Thought Blocking) Speech (Ixojen-Vres-Oppszli-Rapid-Soft- soft/quiet, or not responsive Loud-Pressured) when spoken to Motor (Gqteho-Bqqrfdfmm-Adtz-Other) slow, patient lays down in position or on side, or sits with his hands on his ears looking down at the ground. Insight (Iqbz-Koyz-Asws/Limited) Poor/limited Judgement (Vsbr-Gvzt-Dkmp/Limited) Poor/limited Impulse Control (Adequate-Impaired) impaired, patient proceeds to urinate on the floor with no presentation of malice. Memory (Lhemxqfir-Kzqgfg-Ehpcby, Poor, not formally assessed Impaired-Intact) Concentration (Intact-Impaired) impaired, not formally assessed Attention (Intact-Impaired) impaired, not formally assessed Behavior (Appropriate-Inappropriate) Appropriate due to calm nature . Inappropriate when patient proceeded to urinate on the floor. Risk Assessment Suicidal Ideation (Plan) No Homicidal Ideation (Plan) No Comment Not reported Intervention Intervention RECORDING STUDIO SETUP WORKER enters room to meet with patient and proceeds to sit by room 13 in observation of patient and for continued interaction. Patient endorses to RECORDING STUDIO SETUP WORKER that he remembers being alone at the motel and doing acid. Patient does not answer any further questions and nods head when asked if he needs more time. Patient displays frustration with himself when he recalls that he used Acid. Patient proceeds to not answer questions when RECORDING STUDIO SETUP WORKER continues communication. Patient declines food and drink and does not indicate how he is feeling. Patient proceeds to move from sitting down and laying down positions. Patient urinates on the ground and then proceeds to lay back down in his room. It is the opinion of this RECORDING STUDIO SETUP WORKER that patient is not a threat to himself or others. RECORDING STUDIO SETUP WORKER would like to gather more information from patient to identify safe plan for d/c. It is the opinion of this RECORDING STUDIO SETUP WORKER that at this time patient is not in need of a DCR assessment. RECORDING STUDIO SETUP WORKER reviews the above with ED provider Dr. William who indicates agreement and understanding. Plan RA Plan RECORDING STUDIO SETUP WORKER to continue to attempt to meet with patient for further POC upon d/c. MARI Pritchard
[2021-05-08 20:03] VITALS: BP 140/93; PULSE 80; RESP 16; O2SAT 96
--- NOTE | 2021-05-08 20:03 | CM.SWNOTE ---
JUNIOR ENGINEER Note ED provider Dr. Yanez meets with patient and patient is alert and coherent. Patient is not oriented to time and place. Patient provides JUNIOR ENGINEER with his mother's name and phone number Sasha (Ph. # [phone]) and his father's name and phone number, Bruno (Ph. # [phone]) JUNIOR ENGINEER calls both of patient's parents and leaves VM informing them of their son at the ED who is ready for d/c. Patient endorses he is hungry and eats a sandwich and drinks a patrice william. Afterwards, patient lays back down. Plan: Patient to d/c to home with family. MARI Pritchard
--- NOTE | 2021-05-08 20:06 | PC.NURSE ---
pt wakes to ask for food. Dinner given.
--- NOTE | 2021-05-08 21:30 | PC.NURSE ---
He is up for discharge,we have left phone messages at his parents house with no response yet.since he is asleep,he will be allowed to remain in room for a while longer.He states he is homeless.
--- NOTE | 2021-05-08 21:57 | PC.NURSE ---
Attempted to call mother who is emergency contact to coordinate further care for patient outside of the ED. Left a voicemail on her phone.
[2021-05-08 22:06] VITALS: BP 134/84; PULSE 80; RESP 18; O2SAT 98
== END 2021-05-08 22:07 | disposition home or self-care (01) ==
PROVIDERS: Emergency Medicine; Emergency Provider Emergency Medicine
DX: F23 Brief psychotic disorder (principal); F19.90 Other psychoactive substance use, unspecified, uncomplicated; Z20.822 Contact with and (suspected) exposure to COVID-19
CPT/HCPCS: 36415; 80053; 80076; 80320; 80329; 85025; 87635; 99284; C9803; G0480

== ENCOUNTER 2021-05-11 16:04 | Emergency (ER) | payer OTHER, MEDICAID, SELFPAY ==
[2021-05-11] VITALS (7 sets, daily range): BP systolic 103–134; BP diastolic 82–85; PULSE 80–103; RESP 18–20; TEMP 36.3; O2SAT 96–100; BMI 25.1
[2021-05-11 16:33] LABS: Add Manual Diff / Slide Review NO; Basophils Absolute Auto 100 /uL (0-100); Basophils Percent Auto 0.9 % (0-2); Eosinophils Absolute Auto 400 /uL (0-450); Eosinophils Percent Auto 4.4 % (2-4); Hematocrit 45.9 % (41-53); Lymphocytes Absolute Auto 2600 /uL (1100-4500); Lymphocytes Percent Auto 29.5 % (25-40); Mean Corpuscular HGB Conc 34.9 % (30-36); Mean Corpuscular Hemoglobin 34.3 PG (26-34); Mean Corpuscular Volume 98.2 fL (80-100); Monocytes Absolute Auto 600 /uL (0-900); Monocytes Percent Auto 6.9 % (3-14); Neutrophils Absolute Auto 5200 /uL (1500-7000); Neutrophils Percent Auto 58.3 % (50-75); Platelet Count 222 X10^3/uL (150-400); Red Blood Cell Count 4.68 X10^6/uL (4.5-5.9); Red Cell Distribution Width 12.9 % (11.6-14.8)
[2021-05-11] MEDS: PHENobarbital 65 MG/ML VIAL 260 MG IV (16:38)
[2021-05-11] MEDS: ONDANSETRON 4 MG/2 ML INJ IV (16:38)
[2021-05-11] MEDS: SODIUM CHLORIDE 0.9% 1,000 ML 1000 ML IV (16:39)
[2021-05-11 16:42] LABS: Acetaminophen < 10 ug/mL (10-30); Alanine Aminotransferase 67 IU/L (<50); Albumin 4.5 g/dL (3.5-5.0); Albumin Globulin Ratio 1.6 (1.0-2.8); Alkaline Phosphatase 90 U/L (38-126); Aspartate Aminotransferase 73 IU/L (17-59); BUN Creatinine Ratio 23.4 (6-22); Bilirubin Total 0.4 mg/dL (0.2-1.3); Blood Urea Nitrogen 15 mg/dL (9-20); Calcium 9.1 mg/dL (8.4-10.2); Carbon Dioxide 22 mmol/L (22-32); Chloride 109 mmol/L (98-107); Estimated Glomerular Filt Rate > 60.0 mL/min (>60); Ethanol (ETOH) 76 mg/dL; Globulin 2.8 g/dL (1.7-4.1); Glucose 105 mg/dL (70-100); HEMOLYSIS 42 (0-50); Potassium 3.8 mmol/L (3.4-5.1); Salicylate < 1.0 mg/dL (<20); Sodium 142 mmol/L (137-145); Total Protein 7.3 g/dL (6.3-8.2)
--- NOTE | 2021-05-11 16:43 | ED.GENADULT ---
HPI - General Adult <Martín Zaman - Last Filed: 05/12/21 07:06> General Chief complaint: Toxicology Problem Stated complaint: ALCOHOL WITHDRAWALS Time Seen by Provider: 05/11/21 16:26 Source: patient Mode of arrival: Ambulatory Limitations: no limitations History of Present Illness HPI narrative: Patient is a 26-year-old male. Does have a history of alcohol abuse. Has been to detox and rehab in the past. He states that was approximately 2 years ago. He has also had withdrawal seizures in the past. He stated that he made it through detox and rehab and several months afterwards but then started drinking again. He has been drinking every day since then. Over the past year he also admits to using opioids. He states that is mostly pills but he has done heroin in the past. His last drink was earlier today. He states he is having some lightheadedness and shakiness and palpitations. He states he is going through withdrawals. He is here seeking both symptom relief and also placement for his substance abuse issues. Related Data Previous Rx's Medication Instructions Recorded chlordiazepoxide HCl 25 mg capsule See Rx Instructions .ROUTE 05/11/21 .COMPLEX #32 cap Allergies Allergy/AdvReac Type Severity Reaction Status Date / Time No Known Drug Allergies Allergy Verified 05/08/21 13:00 Review of Systems <Martín Zaman - Last Filed: 05/12/21 07:06> Constitutional Constitutional: Denies fever(s) and Reports headache(s) Eyes Eyes: Reports system reviewed and no additional complaints, except as documented ENT Ears, Nose, Mouth, and Throat: Reports system reviewed and no additional complaints, except as documented, Reports dizziness and Reports headache(s) Cardiovascular Cardiovascular: Reports rapid heart rate and Reports lightheadedness Comments: Palpitations Respiratory Respiratory: Reports system reviewed and no additional complaints, except as documented Gastrointestinal Gastrointestinal: Reports system reviewed and no additional complaints, except as documented and Reports nausea Genitourinary Genitourinary: Reports system reviewed and no additional complaints, except as documented Musculoskeletal Musculoskeletal: Reports system reviewed and no additional complaints, except as documented Integumentary/Breasts Skin/Breast: Reports system reviewed and no additional complaints, except as documented Neurologic Neurologic: Reports dizziness, Reports headache(s) and Reports tremor(s) Psychiatric Psychiatric: Reports system reviewed and no additional complaints, except as documented Endocrine Endocrine: Reports system reviewed and no additional complaints, except as documented Hematologic/Lymphatic On Anticoagulants: No Patient History <DO Isa Gonzales Last Filed: 05/12/21 07:06> Medical History (Updated 05/11/21 @ 18:03 by Martín Zaman DO) Alcohol abuse Cervical radiculopathy Elevated transaminase level Hypokalemia Neck pain on right side Surgical History No history of previous surgery Family History Father Age: 54 Diabetes mellitus Hypertension Social History Smoking Status: Current every day smoker substance use type: marijuana additional social history: Previous heavy EtOH use, occasional THC Smoking Status: Current every day smoker tobacco type: cigarettes alcohol intake frequency: 3 or more drinks per day Alcohol type: beer and hard liquor Substance Use Type: marijuana, opiates and painkillers Exam <DO Isa Gonzales Last Filed: 05/12/21 07:06> Initial Vital Signs Initial Vital Signs: Vital Signs Temperature 97.4 F L 05/11/21 16:05 Pulse Rate 103 H 05/11/21 16:05 Respiratory Rate 20 05/11/21 16:05 Blood Pressure 103/82 05/11/21 16:05 Pulse Oximetry 100 05/11/21 16:05 Const General: cooperative, comfortable and well developed Limitations: mental status not altered HENMT Head: normal to inspection and normocephalic Eyes General: appearance normal, both eyes and all related structures Neck Neck: normal visual inspection Resp Effort & Inspection: normal respiratory effort, not labored and not tachypneic Cardio Rate: tachycardic Rhythm: regular rhythm GI Inspection: normal to inspection Skin General: no rashes or lesions noted Neuro General: patient alert, patient awake, patient oriented x3 and moves all extremities Cognition: normal cognition Speech: speech normal Gait: normal gait Extrem General: capillary refill normal Psych Appearance: grossly normal Attitude: cooperative <Jose Raul Yanez DO - Last Filed: 05/11/21 23:35> Initial Vital Signs Initial Vital Signs: Vital Signs Temperature 97.4 F L 05/11/21 16:05 Pulse Rate 103 H 05/11/21 16:05 Respiratory Rate 20 05/11/21 16:05 Blood Pressure 103/82 05/11/21 16:05 Pulse Oximetry 100 05/11/21 16:05 Course <Martín Zaman DO - Last Filed: 05/12/21 07:06> Orders Ordered: Discontinued Medications Sodium Chloride (Normal Saline 0.9%) 1,000 mls @ 1,000 mls/hr IV BOLUS ONE Stop: 05/11/21 17:27 Last Infusion: 05/11/21 19:00 Dose: 1,000 mls/hr Documented by: Admin: 05/11/21 16:39 Dose: 1,000 mls/hr Documented by: ASH Lorazepam (Lorazepam 0.5 Mg Tablet) 2 mg PO NOW ONE Stop: 05/11/21 19:08 Last Admin: 05/11/21 19:14 Dose: 2 mg Documented by: ASH Ondansetron HCl (Ondansetron 4 Mg/2 Ml Inj) 4 mg IV NOW ONE Stop: 05/11/21 16:12 Last Admin: 05/11/21 16:38 Dose: 4 mg Documented by: ASH Phenobarbital (Phenobarbital 65 Mg/Ml Vial) 260 mg IV NOW ONE Stop: 05/11/21 16:29 Last Admin: 05/11/21 16:38 Dose: 260 mg Documented by: ASH Vital Signs Vital signs: Vital Signs - 8 hr 05/11/21 16:05 05/11/21 16:39 05/11/21 17:00 Temperature 97.4 F L Pulse Rate 103 H 98 H 92 H Respiratory Rate 20 20 Blood Pressure 103/82 Pulse Oximetry 100 97 96 05/11/21 17:30 05/11/21 17:59 05/11/21 18:00 Temperature Pulse Rate 89 90 95 H Respiratory Rate Blood Pressure 134/85 Pulse Oximetry 96 97 97 05/11/21 18:30 Temperature Pulse Rate 80 Respiratory Rate 18 Blood Pressure 134/85 Pulse Oximetry 97 <Jose Raul Yanez DO - Last Filed: 05/11/21 23:35> Course Course Narrative: Patient received sign-out from Dr. Zaman. He has an extensive history of alcohol abuse with prior visits requesting medical clearance for detox. He is feeling much better and requesting discharge, stating he would prefer to try to do it on his own at home with a prescription of Librium as it has worked in the past.We discussed return precautions and his questions have been answered to his apparent satisfaction Orders Ordered: Discontinued Medications Sodium Chloride (Normal Saline 0.9%) 1,000 mls @ 1,000 mls/hr IV BOLUS ONE Stop: 05/11/21 17:27 Last Infusion: 05/11/21 19:00 Dose: 1,000 mls/hr Documented by: Admin: 05/11/21 16:39 Dose: 1,000 mls/hr Documented by: ASH Lorazepam (Lorazepam 0.5 Mg Tablet) 2 mg PO NOW ONE Stop: 05/11/21 19:08 Last Admin: 05/11/21 19:14 Dose: 2 mg Documented by: ASH Ondansetron HCl (Ondansetron 4 Mg/2 Ml Inj) 4 mg IV NOW ONE Stop: 05/11/21 16:12 Last Admin: 05/11/21 16:38 Dose: 4 mg Documented by: ASH Phenobarbital (Phenobarbital 65 Mg/Ml Vial) 260 mg IV NOW ONE Stop: 05/11/21 16:29 Last Admin: 05/11/21 16:38 Dose: 260 mg Documented by: ASH Vital Signs Vital signs: Vital Signs - 8 hr 05/11/21 16:05 05/11/21 16:39 05/11/21 17:00 Temperature 97.4 F L Pulse Rate 103 H 98 H 92 H Respiratory Rate 20 20 Blood Pressure 103/82 Pulse Oximetry 100 97 96 05/11/21 17:30 05/11/21 17:59 05/11/21 18:00 Temperature Pulse Rate 89 90 95 H Respiratory Rate Blood Pressure 134/85 Pulse Oximetry 96 97 97 05/11/21 18:30 Temperature Pulse Rate 80 Respiratory Rate 18 Blood Pressure 134/85 Pulse Oximetry 97 Medical Decision Making <Martín Zaman DO - Last Filed: 05/12/21 07:06> Lab Data Lab results reviewed: Yes I reviewed the patient's lab results. Result diagrams: 05/11/21 16:15 05/11/21 16:15 Labs: Lab Results 05/11/21 05/11/21 05/11/21 Range/Units 16:15 16:15 16:15 WBC 9.0 (4.5-11.0) X10^3/uL RBC 4.68 (4.5-5.9) X10^6/uL Hgb 16.0 (13.5-17.5) g/dL Hct 45.9 (41-53) % MCV 98.2 (80-100) fL MCH 34.3 H (26-34) PG MCHC 34.9 (30-36) % RDW 12.9 (11.6-14.8) % Plt Count 222 (150-400) X10^3/uL Neut % (Auto) 58.3 (50-75) % Lymph % (Auto) 29.5 (25-40) % [place] % (Auto) 6.9 (3-14) % Eos % (Auto) 4.4 H (2-4) % Baso % (Auto) 0.9 (0-2) % Neut # (Auto) 5200 (1784-8713) /uL Lymph # (Auto) 2600 (6472-8133) /uL [place] # (Auto) 600 (0-900) /uL Eos # (Auto) 400 (0-450) /uL Baso # (Auto) 100 (0-100) /uL Sodium (137-145) mmol/L Potassium (3.4-5.1) mmol/L Chloride (98-107) mmol/L Carbon Dioxide (22-32) mmol/L BUN (9-20) mg/dL Creatinine (0.66-1.25) mg/dL Estimated GFR (>60) mL/min BUN/Creatinine Ratio (6-22) Glucose (70-100) mg/dL Calcium (8.4-10.2) mg/dL Total Bilirubin (0.2-1.3) mg/dL AST (17-59) IU/L ALT (<50) IU/L Alkaline Phosphatase (38-126) U/L Total Protein (6.3-8.2) g/dL Albumin (3.5-5.0) g/dL Globulin (1.7-4.1) g/dL Albumin/Globulin Ratio (1.0-2.8) TSH 0.95 (0.47-4.68) uIU/mL Salicylates < 1.0 (<20) mg/dL U Opiates 300ng/mL cut (Negative) Ur Oxycodone Screen (Negative) Urine Methadone Screen (Negative) Acetaminophen < 10 L (10-30) ug/mL Ur Barbiturates Screen (Negative) U Tricyclic Antidepress (Negative) Ur Phencyclidine Scrn (Negative) Ur Amphetamines Screen (Negative) U Methamphetamines Scrn (Negative) Ur MDMA Scrn (Ecstasy) (Negative) U Benzodiazepines Scrn (Negative) Urine Cocaine Screen (Negative) U Marijuana (THC) Screen (Negative) Ethyl Alcohol ( - 10) mg/dL SARS-CoV-2 (PCR) (Negative) 05/11/21 05/11/21 05/11/21 Range/Units 16:15 16:27 16:50 WBC (4.5-11.0) X10^3/uL RBC (4.5-5.9) X10^6/uL Hgb (13.5-17.5) g/dL Hct (41-53) % MCV (80-100) fL MCH (26-34) PG MCHC (30-36) % RDW (11.6-14.8) % Plt Count (150-400) X10^3/uL Neut % (Auto) (50-75) % Lymph % (Auto) (25-40) % [place] % (Auto) (3-14) % Eos % (Auto) (2-4) % Baso % (Auto) (0-2) % Neut # (Auto) (5538-3334) /uL Lymph # (Auto) (7121-2820) /uL [place] # (Auto) (0-900) /uL Eos # (Auto) (0-450) /uL Baso # (Auto) (0-100) /uL Sodium 142 (137-145) mmol/L Potassium 3.8 (3.4-5.1) mmol/L Chloride 109 H (98-107) mmol/L Carbon Dioxide 22 (22-32) mmol/L BUN 15 (9-20) mg/dL Creatinine 0.64 L (0.66-1.25) mg/dL Estimated GFR > 60.0 (>60) mL/min BUN/Creatinine Ratio 23.4 H (6-22) Glucose 105 H (70-100) mg/dL Calcium 9.1 (8.4-10.2) mg/dL Total Bilirubin 0.4 (0.2-1.3) mg/dL AST 73 H (17-59) IU/L ALT 67 H (<50) IU/L Alkaline Phosphatase 90 (38-126) U/L Total Protein 7.3 (6.3-8.2) g/dL Albumin 4.5 (3.5-5.0) g/dL Globulin 2.8 (1.7-4.1) g/dL Albumin/Globulin Ratio 1.6 (1.0-2.8) TSH (0.47-4.68) uIU/mL Salicylates (<20) mg/dL U Opiates 300ng/mL cut Negative (Negative) Ur Oxycodone Screen Negative (Negative) Urine Methadone Screen Negative (Negative) Acetaminophen (10-30) ug/mL Ur Barbiturates Screen Negative (Negative) U Tricyclic Antidepress Negative (Negative) Ur Phencyclidine Scrn Negative (Negative) Ur Amphetamines Screen Negative (Negative) U Methamphetamines Scrn Negative (Negative) Ur MDMA Scrn (Ecstasy) Negative (Negative) U Benzodiazepines Scrn Negative (Negative) Urine Cocaine Screen Negative (Negative) U Marijuana (THC) Screen Negative (Negative) Ethyl Alcohol 76 H ( - 10) mg/dL SARS-CoV-2 (PCR) Negative (Negative) Urine Dip Bedside Urine Glucose Negative Bedside Urine Bilirubin - Negative Bedside Urine Ketone +/- 5 Urine Specific [place] 1.030 Bedside Urine Occult Blood - Negative Bedside Urine pH 6.0 Bedside Urine Protein - Negative Bedside Urine Urobilinogen - Negative Bedside Urine Nitrite - Negative Bedside Urine Leukocytes +/- 15 Esterase Point of care testing: Urine Dip Bedside Urine Glucose Negative Bedside Urine Bilirubin - Negative Bedside Urine Ketone +/- 5 Urine Specific [place] 1.030 Bedside Urine Occult Blood - Negative Bedside Urine pH 6.0 Bedside Urine Protein - Negative Bedside Urine Urobilinogen - Negative Bedside Urine Nitrite - Negative Bedside Urine Leukocytes +/- 15 Esterase MDM Narrative Medical decision making narrative: Patient is alert oriented x3. Initially had a CIWA score of 11. Was given phenobarbital. Patient asking for help with his symptoms and also placement. Care turned over to Dr. Yanez to continue with disposition. Patient is medically cleared. <Jose Raul Yanez, DO - Last Filed: 05/11/21 23:35> Lab Data Labs: Lab Results 05/11/21 05/11/21 05/11/21 Range/Units 16:15 16:15 16:15 WBC 9.0 (4.5-11.0) X10^3/uL RBC 4.68 (4.5-5.9) X10^6/uL Hgb 16.0 (13.5-17.5) g/dL Hct 45.9 (41-53) % MCV 98.2 (80-100) fL MCH 34.3 H (26-34) PG MCHC 34.9 (30-36) % RDW 12.9 (11.6-14.8) % Plt Count 222 (150-400) X10^3/uL Neut % (Auto) 58.3 (50-75) % Lymph % (Auto) 29.5 (25-40) % [place] % (Auto) 6.9 (3-14) % Eos % (Auto) 4.4 H (2-4) % Baso % (Auto) 0.9 (0-2) % Neut # (Auto) 5200 (0321-8846) /uL Lymph # (Auto) 2600 (3002-7796) /uL [place] # (Auto) 600 (0-900) /uL Eos # (Auto) 400 (0-450) /uL Baso # (Auto) 100 (0-100) /uL Sodium (137-145) mmol/L Potassium (3.4-5.1) mmol/L Chloride (98-107) mmol/L Carbon Dioxide (22-32) mmol/L BUN (9-20) mg/dL Creatinine (0.66-1.25) mg/dL Estimated GFR (>60) mL/min BUN/Creatinine Ratio (6-22) Glucose (70-100) mg/dL Calcium (8.4-10.2) mg/dL Total Bilirubin (0.2-1.3) mg/dL AST (17-59) IU/L ALT (<50) IU/L Alkaline Phosphatase (38-126) U/L Total Protein (6.3-8.2) g/dL Albumin (3.5-5.0) g/dL Globulin (1.7-4.1) g/dL Albumin/Globulin Ratio (1.0-2.8) TSH 0.95 (0.47-4.68) uIU/mL Salicylates < 1.0 (<20) mg/dL U Opiates 300ng/mL cut (Negative) Ur Oxycodone Screen (Negative) Urine Methadone Screen (Negative) Acetaminophen < 10 L (10-30) ug/mL Ur Barbiturates Screen (Negative) U Tricyclic Antidepress (Negative) Ur Phencyclidine Scrn (Negative) Ur Amphetamines Screen (Negative) U Methamphetamines Scrn (Negative) Ur MDMA Scrn (Ecstasy) (Negative) U Benzodiazepines Scrn (Negative) Urine Cocaine Screen (Negative) U Marijuana (THC) Screen (Negative) Ethyl Alcohol ( - 10) mg/dL SARS-CoV-2 (PCR) (Negative) 05/11/21 05/11/21 05/11/21 Range/Units 16:15 16:27 16:50 WBC (4.5-11.0) X10^3/uL RBC (4.5-5.9) X10^6/uL Hgb (13.5-17.5) g/dL Hct (41-53) % MCV (80-100) fL MCH (26-34) PG MCHC (30-36) % RDW (11.6-14.8) % Plt Count (150-400) X10^3/uL Neut % (Auto) (50-75) % Lymph % (Auto) (25-40) % [place] % (Auto) (3-14) % Eos % (Auto) (2-4) % Baso % (Auto) (0-2) % Neut # (Auto) (5865-8759) /uL Lymph # (Auto) (9274-7327) /uL [place] # (Auto) (0-900) /uL Eos # (Auto) (0-450) /uL Baso # (Auto) (0-100) /uL Sodium 142 (137-145) mmol/L Potassium 3.8 (3.4-5.1) mmol/L Chloride 109 H (98-107) mmol/L Carbon Dioxide 22 (22-32) mmol/L BUN 15 (9-20) mg/dL Creatinine 0.64 L (0.66-1.25) mg/dL Estimated GFR > 60.0 (>60) mL/min BUN/Creatinine Ratio 23.4 H (6-22) Glucose 105 H (70-100) mg/dL Calcium 9.1 (8.4-10.2) mg/dL Total Bilirubin 0.4 (0.2-1.3) mg/dL AST 73 H (17-59) IU/L ALT 67 H (<50) IU/L Alkaline Phosphatase 90 (38-126) U/L Total Protein 7.3 (6.3-8.2) g/dL Albumin 4.5 (3.5-5.0) g/dL Globulin 2.8 (1.7-4.1) g/dL Albumin/Globulin Ratio 1.6 (1.0-2.8) TSH (0.47-4.68) uIU/mL Salicylates (<20) mg/dL U Opiates 300ng/mL cut Negative (Negative) Ur Oxycodone Screen Negative (Negative) Urine Methadone Screen Negative (Negative) Acetaminophen (10-30) ug/mL Ur Barbiturates Screen Negative (Negative) U Tricyclic Antidepress Negative (Negative) Ur Phencyclidine Scrn Negative (Negative) Ur Amphetamines Screen Negative (Negative) U Methamphetamines Scrn Negative (Negative) Ur MDMA Scrn (Ecstasy) Negative (Negative) U Benzodiazepines Scrn Negative (Negative) Urine Cocaine Screen Negative (Negative) U Marijuana (THC) Screen Negative (Negative) Ethyl Alcohol 76 H ( - 10) mg/dL SARS-CoV-2 (PCR) Negative (Negative) Urine Dip Bedside Urine Glucose Negative Bedside Urine Bilirubin - Negative Bedside Urine Ketone +/- 5 Urine Specific [place] 1.030 Bedside Urine Occult Blood - Negative Bedside Urine pH 6.0 Bedside Urine Protein - Negative Bedside Urine Urobilinogen - Negative Bedside Urine Nitrite - Negative Bedside Urine Leukocytes +/- 15 Esterase Point of care testing: Urine Dip Bedside Urine Glucose Negative Bedside Urine Bilirubin - Negative Bedside Urine Ketone +/- 5 Urine Specific [place] 1.030 Bedside Urine Occult Blood - Negative Bedside Urine pH 6.0 Bedside Urine Protein - Negative Bedside Urine Urobilinogen - Negative Bedside Urine Nitrite - Negative Bedside Urine Leukocytes +/- 15 Esterase Discharge Plan Departure Patient Disposition: Home Clinical Impression: Alcohol abuse, Opioid abuse Instructions: DI for Alcohol Use Disorder Activity Restrictions/Additional Instructions: *You have been diagnosed with [alcohol abuse ] *What to do: *Please continue to take your regular medications as directed. [x ] New medication prescriptions sent to your pharmacy: [ ] [ ] New medication written as a paper prescription [ ] No new medications given *Please follow up with your primary care provider in 2-3 days, call for an appointment. Let them know you were seen in the Emergency Department and that we ask that you be seen in follow up. We will electronically transmit a record of today's note if your PCP is in our system *If you do not have a primary care provider please contact the [facility] Resource line at [phone]. They will ask some questions about your medical history and help get you set up with a doctor in the community. *Return to Emergency Department if you should have any new, worsening or concerning symptoms, such as [fever greater than 101 F, shaking chills, worsening pain, persistent vomiting or other bothersome symptoms] Prescriptions: New chlordiazepoxide HCl 25 mg capsule See Rx Instructions .ROUTE .COMPLEX Qty: 32 RF: 0
[2021-05-11 16:55] LABS: UR Morphine/Opiate cutoff 300 Negative (Negative); Ur Creatinine Normal (Normal); Ur Specific Gravity Normal (Normal); Urine Amphetamines Negative (Negative); Urine Barbiturates Negative (Negative); Urine Benzodiazepines Negative (Negative); Urine Cocaine Negative (Negative); Urine MDMA Negative (Negative); Urine Methadone Negative (Negative); Urine Methamphetamines Negative (Negative); Urine Oxycodone Negative (Negative); Urine Phencyclidine Negative (Negative); Urine Tetrahydrocannabinol Negative (Negative); Urine Tricyclic Antidepressant Negative (Negative); Urine pH Normal (Normal)
[2021-05-11 17:08] LABS: COVID19 -Nasal RAPID Negative (Negative)
[2021-05-11 17:12] LABS: TSH w/ Reflex to FT4 0.95 uIU/mL (0.47-4.68)
--- NOTE | 2021-05-11 17:52 | PC.NURSE ---
Contacted [facility] St[facility] facility in [place]. no beds.
--- NOTE | 2021-05-11 18:21 | PC.NURSE ---
[facility] no beds available
--- NOTE | 2021-05-11 18:37 | PC.NURSE ---
called additional detox facilities, no beds or closed until tomorrow am. Pt requesting to go home with a script.
--- NOTE | 2021-05-11 19:05 | PC.NURSE ---
pt requesting PIV be removed. Removed by RN. dressing placed.
[2021-05-11] MEDS: LORazepam 0.5 MG TABLET 2 MG PO (19:14)
== END 2021-05-11 19:23 | disposition home or self-care (01) ==
PROVIDERS: Emergency Medicine; Emergency Provider Emergency Medicine
DX: F10.10 Alcohol abuse, uncomplicated (principal); F11.10 Opioid abuse, uncomplicated; R42 Dizziness and giddiness; R51.9 Headache, unspecified; R00.2 Palpitations; Z20.822 Contact with and (suspected) exposure to COVID-19
CPT/HCPCS: 80053; 80305; 80320; 80329; 81003; 84443; 85025; 87635; 96361; 96374; 96375; 99284; C9803; G0480; J2405; J2560

== ENCOUNTER 2021-06-26 12:56 | Emergency (ER) | payer OTHER, MEDICAID, SELFPAY ==
[2021-06-26 13:26] VITALS: BP 115/63; PULSE 89; RESP 16; TEMP 37.2; O2SAT 99; BMI 25.1
== END 2021-06-26 13:43 | disposition left against medical advice (07) ==
PROVIDERS: Emergency Provider Physician Assistant
CPT/HCPCS: 99281

== ENCOUNTER 2024-03-26 23:59 | Emergency (ER) | payer OTHER, MEDICAID, SELFPAY ==
[2024-03-27 00:03] VITALS: BP 131/80; PULSE 66; O2SAT 97
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
[2024-03-27 00:09] VITALS: BP 131/80; PULSE 67; RESP 18; TEMP 36.1; O2SAT 99; BMI 24.4
[2024-03-27] MEDS: ACETAMINOPHEN 325 MG TABLET 975 MG PO (00:20)
[2024-03-27] MEDS: LIDOCAINE 1% W/EPI 4 ML INJ (00:20)
[2024-03-27] MEDS: TET,DIPH,PERTUSS(ACELL),VAC/PF 0.5 ML SYRINGE IM (00:21)
[2024-03-27 00:30] VITALS: PULSE 59; RESP 18; O2SAT 99
== END 2024-03-27 00:44 | disposition home or self-care (01) ==
PROVIDERS: Emergency Provider Emergency Medicine
DX: S01.91XA Laceration without foreign body of unspecified part of head, initial encounter (principal); W21.9XXA Striking against or struck by unspecified sports equipment, initial encounter; Z23 Encounter for immunization
CPT/HCPCS: 12013; 90471; 99283; 90715